=== PATIENT | male | born 1935 | race Caucasian/White ===

== ENCOUNTER → 2018-03-15 | Outpatient (CLI) | payer MEDICARE, BC ==
--- NOTE | 2018-03-16 09:06 | XR ---
Lumbar spine HISTORY: Low back pain 3 views of the lumbar spine Correlation to lumbar MRI 03/18/2013 There is multilevel spondylosis. Lumbar vertebral bodies show preserved height. Bone mineralization i s mildly reduced. Minimal anterolisthesis grade 1 L3-4 is stable. There is loss of disc height at the intervertebral levels. Atherosclerotic vascular calcifications are present. Sclerosis present in the posterior elements of t he lower lumbar spine. Lamellated calcification present in the right upper quadrant measures 2.3 cm. IMPRESSION: Degenerative disc disease, facet arthropathy. Indeterminate right upper quadrant calcific ation may represent a gallstone.
== END | disposition home or self-care (01) ==
LOC: RADXRMAIN 16:39
PROVIDERS: ATTEND Internal Medicine
DX: M51.36 Other intervertebral disc degeneration, lumbar region (principal); M46.96 Unspecified inflammatory spondylopathy, lumbar region
CPT/HCPCS: 72100

== ENCOUNTER → 2019-02-04 | Outpatient (CLI) | payer MEDICARE, BC ==
--- NOTE | 2019-02-04 21:24 | MR ---
EXAMINATION TYPE: MR lumbar spine wo con DATE OF EXAM: 02/04/2019 COMPARISON: None HISTORY: 83-year-old male Low back pain / Pain in right hip TECHNIQUE: Multiplanar, multisequence images of the lumbar spine were acquired. FINDINGS: Bladder is prominently distended up to 11.6 cm with a thickened and trabeculated appearance to the bl adder wall. Prostate gland appears prominent. Multiple sacral Tarlov cysts measuring up to 2.7 cm. Vertebral body heights are preserved. Mild heterogeneous marrow signal without suspicious bone marrow placement. Facet arthropathy throughout. Moderate multilevel degenerative disc disease with variable disc desiccation, diffuse disc bulging. M oderate disc height loss at L1-L2 and L2-L3. Overall alignment is maintained. Conus medullaris is normal. At T11-T12, there is diffuse disc bulge and facet arthropathy with mild spinal canal stenosis and mil d bilateral neuroforaminal stenosis. At T12-L1, there is diffuse disc bulge impressing on the ventral thecal sac. Facet arthropathy with m ild left neural foraminal stenosis. No significant spinal canal stenosis. At L1-L2, diffuse disc bulge with facet arthropathy. There is mild spinal canal stenosis with moderat e right greater than left neuroforaminal stenosis. At L2-L3, diffuse disc bulge with superimposed central, right paracentral disc protrusion. Changes re sult in severe focal spinal canal stenosis. The lung with facet arthropathy, there is moderate bilate ral neuroforaminal stenosis. At L3-L4, diffuse disc bulge with hypertrophic facet arthropathy. Changes result in moderate canal st enosis with mild bilateral neural foraminal stenosis. At L4-L5, there is diffuse disc bulge with ligamentum flavum thickening and facet degenerative change . Mild overall narrowing of the spinal canal with moderate left greater than right neuroforaminal gisela nosis. At L5-S1, diffuse disc bulge with facet degenerative change. Changes result in mild right neuroforami nal narrowing. No spinal canal stenosis. Partially visualized large cyst within the right kidney measuring at least 6 cm. Mildly aneurysmal upper abdominal aorta at 3.4 cm. IMPRESSION: 1. Moderate multilevel degenerative disc disease, greatest at L1-L2 and L2-L3, along with facet arthr opathy throughout. 2. Changes result in a focal severe spinal canal stenosis at L2-L3, moderate at L3-L4 and mild at T11 -T12, L1-L2, and L4-L5. 3. Variable mild and moderate neuroforaminal stenoses as outlined above. 4. 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 5. Prominent distention of the thickened urinary bladder and prostatomegaly. Correlate for possible b ladder outlet obstruction/BPH. 6. 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
--- NOTE | 2019-02-05 18:22 | MR ---
EXAMINATION TYPE: MR hip RT wo con DATE OF EXAM: 02/04/2019 COMPARISON: NONE HISTORY: 83-year-old male Low back pain / Pain in right hip TECHNIQUE: Multiplanar, multisequence images of the right hip were obtained without IV contrast. FINDINGS: There is superolateral joint space narrowing in both hips. Findings are more pronounced on the right with subchondral marrow edema and moderate to severe focal irregular cartilage loss along the weightb earing aspect. Tears of the bilateral anterior superior acetabular labrums. No sizable para labral cyst. Small hip joint effusions are present on both sides and may be within physiologic range. No evidence for hip fracture or AVN. The SI joints and sacrum remain intact. There is inhomogeneous signal of the right gluteal insertion with partial tear of the gluteus minimus and a small effusion in the subgluteus medius bursa. The rectus femoris and hamstrings origins as well as the iliopsoas insertion appear intact. Large sacral Tarlov cysts are demonstrated measuring up to 2.7 cm. Mildly heterogeneous marrow signal without suspicious bone marrow replacement. Normal course, caliber, and signal intensity of the sciatic nerves. Moderate right-sided hydrocele and small hydrocele on the left. There is also prostatomegaly at 4.9 c m wide with cystic hypertrophy of the median lobe of the prostate gland. IMPRESSION: 1. Moderate bilateral hip osteoarthrosis, right greater than left. Degenerative tears of the bilatera l acetabular trae. 2. Right-sided gluteal insertional tendinosis with partial tear of the gluteus minimus insertion. Mil d subgluteus medius bursitis. 3. Moderate right-sided hydrocele. 4. Prostatomegaly (4.9 cm wide) and hypertrophied median lobe of the prostate gland protruding into t he inferior aspect of the bladder. Correlate for symptoms of BPH.
== END | disposition home or self-care (01) ==
LOC: RADMRIMAIN 10:02
PROVIDERS: ATTEND Internal Medicine
DX: M48.061 Spinal stenosis, lumbar region without neurogenic claudication (principal); M51.36 Other intervertebral disc degeneration, lumbar region; M46.96 Unspecified inflammatory spondylopathy, lumbar region; M16.0 Bilateral primary osteoarthritis of hip; S73.192A Other sprain of left hip, initial encounter; S73.191A Other sprain of right hip, initial encounter; M77.8 Other enthesopathies, not elsewhere classified
CPT/HCPCS: 72148

== ENCOUNTER 2019-03-29 11:21 | Emergency (ER) | payer MEDICARE, BC ==
[2019-03-29 11:28] VITALS: TEMP 97.5
[2019-03-29] MEDS ORDERED: SODIUM CHLORIDE 0.9% 500 ML 500 ML IV STA (11:41)
[2019-03-29] MEDS ORDERED: MECLIZINE 25 MG TAB PO STA (11:41)
--- NOTE | 2019-03-29 11:52 | ED ---
General Adult HPI - General Chief complaint: Dizziness Stated complaint: weakness, dizziness Time Seen by Provider: 03/29/19 11:25 Source: patient, RN notes reviewed Mode of arrival: ambulatory Limitations: no limitations - History of Present Illness Initial comments: This is a 83-year-old male who presents to the emergency department complaining of dizziness for the last couple days per patient states it's worse when he bends over or turns his head. Patient states he has been so dizzy fall over. Patient states he has no other symptoms. Patient denies headache patient denies numbness weakness. Patient denies any new tinnitus or hearing loss. Patient denies any chest pain difficulty breathing shortness breath per patient denies any palpitations. Patient denies abdominal pain patient denies nausea vomiting diarrhea per patient denies any swelling to the legs or calf tenderness. Patient states she's never had anything with this before in the past. - Related Data Home Medications Medication Instructions Recorded Confirmed Aliskiren Hemifumarate [Aliskiren] 300 mg PO DAILY 03/29/19 03/29/19 Atorvastatin [Lipitor] 10 mg PO DAILY 03/29/19 03/29/19 Cholecalciferol (Vitamin D3) 2,000 unit PO DAILY 03/29/19 03/29/19 [Vitamin D3] Levothyroxine Sodium [Synthroid] 125 mcg PO DAILY 03/29/19 03/29/19 Metoprolol Succinate (ER) [Toprol 100 mg PO DAILY 03/29/19 03/29/19 Xl] Mirtazapine [Remeron] 30 mg PO HS 03/29/19 03/29/19 Valsartan/Hydrochlorothiazide 1 tab PO DAILY 03/29/19 03/29/19 [Valsartan-Hctz 320-25 mg Tab] amLODIPine BESYLATE [Norvasc] 10 mg PO DAILY 03/29/19 03/29/19 metFORMIN HCL 1,000 mg PO DAILY 03/29/19 03/29/19 sitaGLIPtin PHOSPHATE [Januvia] 100 mg PO DAILY 03/29/19 03/29/19 Previous Rx's Medication Instructions Recorded Meclizine [Antivert] 25 mg PO TID #20 tab 03/29/19 Allergies Allergy/AdvReac Type Severity Reaction Status Date / Time shellfish derived [Shellfish] Allergy Anaphylaxis Verified 03/29/19 13:03 Review of Systems ROS Statement: Those systems with pertinent positive or pertinent negative responses have been documented in the HPI. ROS Other: All systems not noted in ROS Statement are negative. Past Medical History Past Medical History: Diabetes Mellitus, Hyperlipidemia, Hypertension Additional Past Medical History / Comment(s): sleep apnea History of Any Multi-Drug Resistant Organisms: None Reported Past Surgical History: Appendectomy Past Psychological History: No Psychological Hx Reported Smoking Status: Former smoker Past Alcohol Use History: Rare Past Drug Use History: None Reported General Exam - General Exam Comments Initial Comments: GENERAL: Patient is well-developed and well-nourished. Patient is nontoxic and well- hydrated and is in mild to us distress. ENT: Neck is soft and supple. No significant lymphadenopathy is noted. Oropharynx is clear. Moist mucous membranes. Neck has full range of motion without eliciting any pain. EYES: The sclera were anicteric and conjunctiva were pink and moist. Extraocular movements were intact and pupils were equal round and reactive to light. Eyelids were unremarkable. PULMONARY: Unlabored respirations. Good breath sounds bilaterally. No audible rales rhonchi or wheezing was noted. CARDIOVASCULAR: There is a regular rate and rhythm without any murmurs gallops or rubs. ABDOMEN: Soft and nontender with normal bowel sounds. No palpable organomegaly was noted. There is no palpable pulsatile mass. SKIN: Skin is clear with no lesions or rashes and otherwise unremarkable. NEUROLOGIC: Patient is alert and oriented x3. Cranial nerves II through XII are grossly intact. Motor and sensory are also intact. Normal speech, volume and content. Symmetrical smile. Cerebellar testing finger to nose bilaterally was normal MUSCULOSKELETAL: Normal extremities with adequate strength and full range of motion. No lower extremity swelling or edema. No calf tenderness. LYMPHATICS: No significant lymphadenopathy is noted PSYCHIATRIC: Normal psychiatric evaluation. Limitations: no limitations Course Vital Signs 03/29/19 03/29/19 03/29/19 11:24 12:00 12:07 Temperature 97.5 F L Pulse Rate 74 69 Pulse Rate [ Sitting Pulse Oximetery] Pulse Rate [ Standing] Pulse Rate [ 65 Supine Pulse Oximetery] Respiratory 18 20 16 Rate Blood Pressure 139/78 141/77 Blood Pressure 150/80 [Left Arm] O2 Sat by Pulse 97 97 96 Oximetry 03/29/19 03/29/19 12:10 12:12 Temperature Pulse Rate Pulse Rate [ 71 Sitting Pulse Oximetery] Pulse Rate [ 70 Standing] Pulse Rate [ Supine Pulse Oximetery] Respiratory 20 20 Rate Blood Pressure Blood Pressure 180/81 141/77 [Left Arm] O2 Sat by Pulse 94 L 96 Oximetry Medical Decision Making - Medical Decision Making EKG shows normal sinus rhythm at 66 bpm PA interval is on an 84 QRS is 94 Q-T intervals 428 QTC is 448. Patient's EKG shows no ST segment elevation or depression or T-wave abnormalities noted. CT shows no acute abnormality. Patient's chest x-ray shows eventration of the right hemidiaphragm. Patient got Antivert in the emergency department and after he is here couple of hours he was able to ambulate and felt as though he was much improved. - Lab Data Result diagrams: 03/29/19 11:42 03/29/19 11:42 Lab Results 03/29/19 03/29/19 03/29/19 Range/Units 11:42 11:42 11:42 WBC 5.0 (3.8-10.6) k/uL RBC 4.16 L (4.30-5.90) m/uL Hgb 13.6 (13.0-17.5) gm/dL Hct 38.8 L (39.0-53.0) % MCV 93.3 (80.0-100.0) fL MCH 32.7 (25.0-35.0) pg MCHC 35.0 (31.0-37.0) g/dL RDW 12.7 (11.5-15.5) % Plt Count 195 (150-450) k/uL Neutrophils % (Manual) 64 % Lymphocytes % (Manual) 22 % Monocytes % (Manual) 11 % Eosinophils % (Manual) 3 % Neutrophils # (Manual) 3.20 (1.3-7.7) k/uL Lymphocytes # (Manual) 1.10 (1.0-4.8) k/uL Monocytes # (Manual) 0.55 (0-1.0) k/uL Eosinophils # (Manual) 0.15 (0-0.7) k/uL Nucleated RBCs 0 (0-0) /100 WBC Manual Slide Review Performed RBC Morphology Normal PT 10.2 (9.0-12.0) sec INR 0.9 (<1.2) APTT 24.6 (22.0-30.0) sec Sodium 139 (137-145) mmol/L Potassium 3.9 (3.5-5.1) mmol/L Chloride 104 (98-107) mmol/L Carbon Dioxide 25 (22-30) mmol/L Anion Gap 10 mmol/L BUN 19 (9-20) mg/dL Creatinine 1.09 (0.66-1.25) mg/dL Est GFR (CKD-EPI)AfAm 73 (>60 ml/min/1.73 sqM) Est GFR (CKD-EPI)NonAf 63 (>60 ml/min/1.73 sqM) Glucose 153 H (74-99) mg/dL Calcium 9.6 (8.4-10.2) mg/dL Magnesium 1.6 (1.6-2.3) mg/dL Total Bilirubin 1.5 H (0.2-1.3) mg/dL AST 25 (17-59) U/L ALT 23 (21-72) U/L Alkaline Phosphatase 61 (38-126) U/L Troponin I (0.000-0.034) ng/mL Total Protein 7.2 (6.3-8.2) g/dL Albumin 4.5 (3.5-5.0) g/dL 03/29/19 Range/Units 11:42 WBC (3.8-10.6) k/uL RBC (4.30-5.90) m/uL Hgb (13.0-17.5) gm/dL Hct (39.0-53.0) % MCV (80.0-100.0) fL MCH (25.0-35.0) pg MCHC (31.0-37.0) g/dL RDW (11.5-15.5) % Plt Count (150-450) k/uL Neutrophils % (Manual) % Lymphocytes % (Manual) % Monocytes % (Manual) % Eosinophils % (Manual) % Neutrophils # (Manual) (1.3-7.7) k/uL Lymphocytes # (Manual) (1.0-4.8) k/uL Monocytes # (Manual) (0-1.0) k/uL Eosinophils # (Manual) (0-0.7) k/uL Nucleated RBCs (0-0) /100 WBC Manual Slide Review RBC Morphology PT (9.0-12.0) sec INR (<1.2) APTT (22.0-30.0) sec Sodium (137-145) mmol/L Potassium (3.5-5.1) mmol/L Chloride (98-107) mmol/L Carbon Dioxide (22-30) mmol/L Anion Gap mmol/L BUN (9-20) mg/dL Creatinine (0.66-1.25) mg/dL Est GFR (CKD-EPI)AfAm (>60 ml/min/1.73 sqM) Est GFR (CKD-EPI)NonAf (>60 ml/min/1.73 sqM) Glucose (74-99) mg/dL Calcium (8.4-10.2) mg/dL Magnesium (1.6-2.3) mg/dL Total Bilirubin (0.2-1.3) mg/dL AST (17-59) U/L ALT (21-72) U/L Alkaline Phosphatase (38-126) U/L Troponin I <0.012 (0.000-0.034) ng/mL Total Protein (6.3-8.2) g/dL Albumin (3.5-5.0) g/dL Disposition Clinical Impression: Vertigo Disposition: HOME SELF-CARE Condition: Good Instructions (If sedation given, give patient instructions): Vertigo (ED) Prescriptions: Meclizine [Antivert] 25 mg PO TID #20 tab Is patient prescribed a controlled substance at d/c from ED?: No Referrals: Micky Alves MD [Primary Care Provider] - 1-2 days Time of Disposition: 13:30
[2019-03-29 12:07] LABS: Albumin 4.5 g/dL (3.5-5.0); Calcium 9.6 mg/dL (8.4-10.2); Magnesium 1.6 mg/dL (1.6-2.3); Potassium 3.9 mmol/L (3.5-5.1); Total Bilirubin 1.5 mg/dL (0.2-1.3); Total Protein 7.2 g/dL (6.3-8.2)
[2019-03-29 12:08] LABS: INR 0.9 (<1.2); Partial Thromboplastin Time 24.6 sec (22.0-30.0); Prothrombin Time 10.2 sec (9.0-12.0)
--- NOTE | 2019-03-29 12:24 | CT ---
EXAMINATION TYPE: CT brain wo con DATE OF EXAM: 03/29/2019 COMPARISON: None HISTORY: Dizziness today. CT DLP: 1137.4 mGycm Automated exposure control for dose reduction was used. Helical acquisition through the brain. FINDINGS: There are cerebral vascular calcifications present. Cortical atrophy is likely age-related. No hemorr madelyn or hydrocephalus. Periventricular white matter shows patchy low attenuation. There is a small de nse focus within the posterior occipital location inner table causing some local mass effect on the l eft occipital lobe, the lesion measures approximately 1.3 cm. Calvarium is intact. Paranasal sinuses and mastoid air cells are within normal limits. IMPRESSION: AGE-RELATED CHANGES OF ATROPHY AND PROBABLE CHRONIC SMALL VESSEL ISCHEMIA. 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 MRI COULD BE PERFORMED FOR ADDITIONAL EVALUATION.
--- NOTE | 2019-03-29 12:26 | XR ---
EXAMINATION TYPE: XR chest 2V DATE OF EXAM: 03/29/2019 COMPARISON: NONE TECHNIQUE: PA and lateral views submitted. HISTORY: Chest pain FINDINGS: Heart is enlarged and is atherosclerotic change aorta and prominence right paratracheal stripe. Lobul ated density at the right lung base. No overt failure. No pleural effusion. IMPRESSION: 1. Lobulated density along the right lung base. CT of the chest is recommended to assess for pleural- based mass versus eventration of the hemidiaphragm. 2. Cardiomegaly.
[2019-03-29 12:27] LABS: HCT 38.8 % (39.0-53.0); HGB 13.6 gm/dL (13.0-17.5); MCH 32.7 pg (25.0-35.0); MCV 93.3 fL (80.0-100.0); Mean Platelet Volume 6.9; Platelet Count 195 k/uL (150-450); RBC 4.16 m/uL (4.30-5.90); RDW 12.7 % (11.5-15.5)
[2019-03-29 12:56] LABS: Eosinophils # (M) 0.15 k/uL (0-0.7); Monocytes # (M) 0.55 k/uL (0-1.0); Neutrophils % (M) 64 %; Nucleated Red Blood Cells 0 /100 WBC (0-0); Total Cells Counted 100
[2019-03-29 13:30] VITALS: RESP 18
[2019-03-29 13:42] VITALS: BP 152/82; PULSE 67
== END 2019-03-29 13:42 | disposition home or self-care (01) ==
LOC: EC 11:21
DX: R42 Dizziness and giddiness (principal); R53.1 Weakness; E11.9 Type 2 diabetes mellitus without complications; E78.5 Hyperlipidemia, unspecified; I10 Essential (primary) hypertension; Z87.891 Personal history of nicotine dependence; Z79.890 Hormone replacement therapy; Z79.84 Long term (current) use of oral hypoglycemic drugs; Z79.899 Other long term (current) drug therapy; Z91.013 Allergy to seafood
CPT/HCPCS: 36415; 70450; 71046; 80053; 83735; 84484; 85025; 85610; 85730; 96360; 99284

== ENCOUNTER → 2019-04-14 | Outpatient (CLI) | payer MEDICARE, BC ==
--- NOTE | 2019-04-14 12:00 | CT ---
EXAMINATION TYPE: CT chest wo con DATE OF EXAM: 04/14/2019 COMPARISON: Chest x-ray 03/29/2019 HISTORY: Abnormal chest radiograph Unenhanced CT of the chest was performed with lung and mediastinal window settings submitted. The la ck of contrast limits evaluation of the vascular, mediastinal and parenchymal structures including th e upper abdomen. LUNGS: There is focal eventration right hemidiaphragm. There is no evidence for pulmonary mass. The l ungs are clear and free of infiltrate. No atelectasis. No pulmonary nodule or mass is detected. No pleural effusion. No CT evidence of interstitial lung disease. MEDIASTINUM/NAOMIE: Thoracic aorta is of normal caliber with limited evaluation given lack of contrast . The heart is not enlarged. No evidence for mediastinal mass. No lymph nodes greater than 1cm. UPPER ABDOMEN: Renal cystic changes noted. Adjacent to a large right-sided cyst there is a solid-appe aring nodule measuring 2.3 cm. Further evaluation with ultrasound is advised. Cholelithiasis. OTHER: No significant other abnormality. IMPRESSION: 1. Focal eventration right hemidiaphragm without evidence of pulmonary mass. 2. Solid nodule right kidney. Malignancy is not excluded. Recommend ultrasound correlation
== END | disposition home or self-care (01) ==
LOC: RADCTMAIN 10:57
PROVIDERS: ATTEND Internal Medicine
DX: Q79.1 Other congenital malformations of diaphragm (principal); R91.8 Other nonspecific abnormal finding of lung field
CPT/HCPCS: 71250

== ENCOUNTER → 2019-05-03 | Outpatient (CLI) | payer MEDICARE, BC ==
[2019-05-03 11:09] VITALS: BP 136/76; PULSE 74; RESP 16
--- NOTE | 2019-05-04 11:17 | P.PAINCN ---
History of Present Illness - Reason for Consult Consult date: 05/03/19 - History of Present Illness This is 83 years old male with a chronic history of severe low back pain, pain started 20 years ago he denies any initiating event, and he reported that the intensity of the pain increased over time, the pain is constant and increases with any activity or details from the low back area towards the hip area bilaterally, he denies any motor or sensory deficit he denies any fever or night sweats. He denies any change in the bowel movements or urination, he was treated in the past with pain medication OxyContin, and currently he is on [place] 7.5/325 every 6 hours when necessary, he denies any side effects of the medication and he reported the current medication is helping to some degree, but the intensity of the pain interfere with the quality of life, and interfere with his ability to do activity of daily living Past Medical History Past Medical History: Diabetes Mellitus, Hyperlipidemia, Hypertension, Sleep Apnea/CPAP/BIPAP, Thyroid Disorder Additional Past Medical History / Comment(s): USES C-PAP MACHINE, OCCASIONAL VERTIGO., LOW BACK PAIN THAT RADIATES TO HIPS- STATES DIFFICULTY WALKING DISTANCE. History of Any Multi-Drug Resistant Organisms: None Reported Past Surgical History: Appendectomy, Tonsillectomy Past Anesthesia/Blood Transfusion Reactions: No Reported Reaction Past Psychological History: No Psychological Hx Reported Smoking Status: Former smoker Past Alcohol Use History: Occasional Additional Past Alcohol Use History / Comment(s): QUIT SMOKING 20 YRS OR MORE, SMOKED 2-3 PPD., STARTED SMOKING AT 19 YRS OLD.-SMOKED 40 YEARS OR MORE. Past Drug Use History: None Reported - Past Family History Mother Family Medical History: No Reported History Medications and Allergies Home Medications Medication Instructions Recorded Confirmed Type Aliskiren Hemifumarate [Aliskiren] 300 mg PO DAILY 03/29/19 05/03/19 History Atorvastatin [Lipitor] 10 mg PO DAILY 03/29/19 05/03/19 History Cholecalciferol (Vitamin D3) 2,000 unit PO DAILY 03/29/19 05/03/19 History [Vitamin D3] Levothyroxine Sodium [Synthroid] 125 mcg PO DAILY 03/29/19 05/03/19 History Meclizine [Antivert] 25 mg PO TID #20 tab 03/29/19 05/03/19 Rx Metoprolol Succinate (ER) [Toprol 100 mg PO DAILY 03/29/19 05/03/19 History Xl] Mirtazapine [Remeron] 30 mg PO HS 03/29/19 05/03/19 History Valsartan/Hydrochlorothiazide 1 tab PO DAILY 03/29/19 05/03/19 History [Valsartan-Hctz 320-25 mg Tab] amLODIPine BESYLATE [Norvasc] 10 mg PO DAILY 03/29/19 05/03/19 History metFORMIN HCL 1,000 mg PO DAILY 03/29/19 05/03/19 History sitaGLIPtin PHOSPHATE [Januvia] 100 mg PO DAILY 03/29/19 05/03/19 History Aspirin [Adult Low Dose Aspirin EC] 81 mg PO DAILY 05/02/19 05/03/19 History HYDROcodone/APAP 7.5-325MG [[place] 1 tab PO DIRECTED PRN 05/02/19 05/03/19 History 7.5-325] Allergies Allergy/AdvReac Type Severity Reaction Status Date / Time shellfish derived [Shellfish] Allergy Anaphylaxis Verified 05/03/19 11:00 Physical Exam REVIEW OF ORGAN SYSTEMS: CONSTITUTIONAL: No fevers or chills. No recent weight loss. EYES: History of troubles with vision. No glasses. HEENT: No difficulties with hearing. No nosebleeds. No difficulty swallowing. RESPIRATORY: Past pneumonia. Denies any troubles with breathing or dyspnea on exertion. CARDIOVASCULAR: Denies any chest pain, palpitations, or recent heart attacks. GASTROINTESTINAL: Denies fatty food intolerance. Has change in bowel habits and gas bloat. GENITOURINARY: Denies any blood in urine. Has increased urinary frequency. NEUROLOGICAL: Denies any numbness or tingling along the distal extremities. No seizure disorders or headaches. MUSCULOSKELETAL: Has back pain, SKIN: Past t skin cancer. No rash. PSYCHIATRIC: Denies current depression or suicidal thoughts. ENDOCRINE: Denies current thyroid disorders. Denies any blood sugar glucose intolerance. HEME/LYMPHATIC: Denies any lumps and bumps around the neck. History of deep venous thrombosis. ALLERGY/IMMUNOLOGY: No immunoglobulin therapy. No immune deficiencies. BREAST: Denies current breast lumps, pain or nipple discharge. Physical Examinations : Constitutiona : Cooperative , not in acute distress . HEENT : nech : supple , no Lymphadenopathy , normal thyroid size . eyes : no ptosis , no icterus, no ph otophobia . ENT : normal of hearing , normal oropharynx , no Thrush . Respiratory : Chest clear to auscultations Bilaterally , no wheezing , no Rhonchi . Cardiovascula : regular rate and rhythem , S1 , S2 , no S3 , no S4. Gastrointestina : abdomen soft no tenderness , bowel sounds , no organomegally . Genitourinary : Defferred . neurologic : Cranial nerve II to XII intact , no focal neurological deffecit . psychatric : alert , oriented X 3 , appropriate affect , intact judgment and insight . Lymphatic : no Lymphadenopathy . musculoskeltal : Lumber spine moter stegnth lower extremities ,thigh and legs 5/5 Right side , 5/5 Left side deep tendon reflexes : normal Knee Jerk , normal ankle Jerk positive lumber facet Loading Test Range of motion of the lumbar spine Flexion 30 degrees, extension 10 degrees strait leg raising test = negative bilaterally Fabere test = negative bilaterally mild tenderness over the Sacroiliac joint on the R and L sides hip joints = full range of motion bilaterally, abduction and adduction movement within normal limits Minimal pain at the lateral rotation of the right hip Results Comments: MRI of the lumbar spine L2-3 ,L3 4 , L4 5 , and L5-S1 bulging disc with a facet arthropathy 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 and partial tear on the gluteus minors insertions Assessment and Plan Plan: Assessment and plan= severe low back pain secondary to lumbar spondylosis with lumbar facet arthropathy, and lumbar degenerative disc disease Patient will be a good candidate to have diagnostic medial branch block lumbar area L2-3, L3 4, L4 5, L5-S1 x2 and if it is positive then we will proceed with a radiofrequency ablation of the medial branch lumbar area Patient should continue to use his current pain [place] 7.5/325 when necessary medication and is getting prescription refills from his primary care Time with Patient: Greater than 30 PQRS Measure Charge Sheet Measure #130: Documentation of Current Meds in Medical Chart: Patient's medications documented in chart Measure #226: Tobacco Use: Screen & Cessation Intervention: Pt not a tobacco user Measure #111: Pneumonia Vaccination: Pneumococcal vaccine NOT administered or previously given Measure #47: Advance Care Plan: Advance care planning discussed & documented, pt chose/unable to give Measure #412: Opioid Treatment Agreement: No documentation of signed opioid treatment agreement Measure #408: Opioid Therapy Follow-up Evaluation: Patient had NO f/u eval minimum every 3 months during opioid therapy Measure #317: Preventitive Care & Scrn High Bld Press & F/U: Normal blood pressure, f/u not required Measure #128: Body Mass Index (BMI) Screening & Follow-up: BMI documented ABOVE normal parameters - f/u documented Measure #131: Pain Assessment & Follow-up: Pain positive & plan documented, Follow-up scheduled Measure #431: Unhealthy Alcohol Use Preventative Care & Scrn: Patient not identified as an unhealthy alcohol user PQRS Narrative: Smoking Status Former smoker Blood Pressure 136/76 Pain Intensity [Back] 6 Scale Used Numeric (1 - 10) Hx Alcohol Use (MH) Yes: occ Home Medications: Ambulatory Orders Aliskiren Hemifumarate [Aliskiren] 300 mg PO DAILY 03/29/19 Atorvastatin [Lipitor] 10 mg PO DAILY 03/29/19 Cholecalciferol (Vitamin D3) [Vitamin D3] 2,000 unit PO DAILY 03/29/19 Levothyroxine Sodium [Synthroid] 125 mcg PO DAILY 03/29/19 Meclizine [Antivert] 25 mg PO TID #20 tab 03/29/19 Metoprolol Succinate (ER) [Toprol Xl] 100 mg PO DAILY 03/29/19 Mirtazapine [Remeron] 30 mg PO HS 03/29/19 Valsartan/Hydrochlorothiazide [Valsartan-Hctz 320-25 mg Tab] 1 tab PO DAILY 03/29/19 amLODIPine BESYLATE [Norvasc] 10 mg PO DAILY 03/29/19 metFORMIN HCL 1,000 mg PO DAILY 03/29/19 sitaGLIPtin PHOSPHATE [Januvia] 100 mg PO DAILY 03/29/19 Aspirin [Adult Low Dose Aspirin EC] 81 mg PO DAILY 05/02/19 HYDROcodone/APAP 7.5-325MG [[place] 7.5-325] 1 tab PO DIRECTED PRN 05/02/19
== END | disposition home or self-care (01) ==
LOC: PNWHC3 10:27
PROVIDERS: ATTEND Specialist
DX: M51.36 Other intervertebral disc degeneration, lumbar region (principal); M47.816 Spondylosis without myelopathy or radiculopathy, lumbar region; M46.96 Unspecified inflammatory spondylopathy, lumbar region; E78.5 Hyperlipidemia, unspecified; I10 Essential (primary) hypertension; E03.9 Hypothyroidism, unspecified; Z87.891 Personal history of nicotine dependence; E11.9 Type 2 diabetes mellitus without complications; G47.33 Obstructive sleep apnea (adult) (pediatric); Z99.89 Dependence on other enabling machines and devices; Z79.82 Long term (current) use of aspirin; Z79.84 Long term (current) use of oral hypoglycemic drugs; Z79.891 Long term (current) use of opiate analgesic; Z79.899 Other long term (current) drug therapy
CPT/HCPCS: 99211

== ENCOUNTER 2019-05-09 06:35 | Day surgery (SDC) | payer MEDICARE, BC ==
[2019-05-09 07:07] VITALS: TEMP 97.8
[2019-05-09 07:14] LABS: Glucose,Whole Blood 207 mg/dL (75-99)
[2019-05-09] MEDS ORDERED: LIDOCAINE 1% 20 ML VIAL (10MG/ML) FOR IV START INTRADERMA ONE (07:16)
[2019-05-09] MEDS ORDERED: LACTATED RINGERS 1,000 ML IV ONE (07:16)
[2019-05-09] MEDS ORDERED: LACTATED RINGERS 1,000 ML IV SCH (08:48)
[2019-05-09] MEDS ORDERED: IV FLUID CONTINUATION 1,000 ML IV ONE (09:04)
--- NOTE | 2019-05-09 09:09 | P.PCN ---
Date of Procedure: 05/09/19 Procedure(s) Performed: PREOPERATIVE DIAGNOSIS : Lumbar spondylosis with Facet Arthropathy without myelopathy POSTOPERATIVE DIAGNOSIS: same PROCEDURE: First Diagnostic lumbar medial branch block with fluoroscopy at L2, L3, L4, L5 medial branches bilateral, for facet joints L3-4, L4-5, L5-S1 ANESTHESIA: Local anesthetic; no sedation Fluoroscopy was used for the procedure and images were saved in the radiology portion of the chart. Surgeon: Lata Shaw MD PROCEDURE INDICATION: Lumbar back pain without radiculopathy, not responsive to conservative management. PROCEDURE DESCRIPTION: the patient was seen and identified in the preop holding area , risks and benefits and possible complications of the procedure and alternatives were discussed with the patient, and the patient agreed to proceed with the procedure and signed the consent . IV was started , vital signs were monitored during the procedure and fluoroscopy was used to maximize the benefit and accuracy of the needle placement. Patient was taken to the procedure room and placed in prone position. The lumbar region was prepped using chlorhexidine X-2. Under strict sterile technique using AP fluoroscopy the bilateral sacral ala were identified and using ipsilateral oblique fluoroscopy ,the junction of the transverse process and the superior articulating process of the L3, L4, L5 vertebra which corresponds to the fluoroscopy image of the eye of the Tello dog for the medial branches were identified. Subsequently, after local infiltration of skin with lidocaine 1% 0.2 mL at each level , a 25-gauge 3-1/2 inch Quincke-type needle was placed at the junction of the base of the transverse process and the superior articular process at the appropriate level as well as the sacral ala, and the needle was advanced until the periosteum contacted, needle placement confirmed with AP and oblique fluoroscopy. After negative aspiration, 0.5 mL of lidocaine 4% was injected at each level and the needle subsequently removed . At the end of the procedure and the needles were removed and a bandage applied after the skin was cleaned. The patient was taken to recovery room in stable condition and monitors in the recovery room for 20-30 minutes and discharged home in stable condition after discharge criteria met and patient will follow up in clinic in 2 weeks EBL: Minimal COMPLICATION: None. 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
[2019-05-09 09:11] VITALS: RESP 17
[2019-05-09 09:33] VITALS: BP 158/90; PULSE 78
--- NOTE | 2019-05-09 12:51 | FL ---
Fluoroscopy HISTORY: Pain 5 seconds fluoroscopy time supplied to the referring clinician. 5 intraoperative C-arm images docume nt the procedure. See dictated report from anesthesia.
== END 2019-05-09 09:35 | disposition home or self-care (01) ==
LOC: ORPAIN 06:35
PROVIDERS: ATTEND Anesthesiology
DX: G89.29 Other chronic pain (principal); M47.816 Spondylosis without myelopathy or radiculopathy, lumbar region; M51.36 Other intervertebral disc degeneration, lumbar region; E11.9 Type 2 diabetes mellitus without complications; E78.5 Hyperlipidemia, unspecified; I10 Essential (primary) hypertension; G47.30 Sleep apnea, unspecified; Z99.89 Dependence on other enabling machines and devices; E07.9 Disorder of thyroid, unspecified; Z87.891 Personal history of nicotine dependence; Z79.84 Long term (current) use of oral hypoglycemic drugs; Z79.891 Long term (current) use of opiate analgesic; Z79.82 Long term (current) use of aspirin; Z79.890 Hormone replacement therapy; Z79.899 Other long term (current) drug therapy; Z91.013 Allergy to seafood

== ENCOUNTER 2019-05-24 09:38 | Day surgery (SDC) | payer MEDICARE, BC ==
[2019-05-18 15:21] VITALS: BMI 29.5
[2019-05-24 10:09] VITALS: TEMP 97.3
[2019-05-24] MEDS ORDERED: LACTATED RINGERS 1,000 ML IV ONE ×2 (10:13→11:32)
[2019-05-24 10:14] LABS: Glucose,Whole Blood 132 mg/dL (75-99)
--- NOTE | 2019-05-24 11:29 | P.PCN ---
Date of Procedure: 05/24/19 Procedure(s) Performed: PREOPERATIVE DIAGNOSIS : Lumbar spondylosis with Facet Arthropathy without myelopathy POSTOPERATIVE DIAGNOSIS: same PROCEDURE: Diagnostic lumbar medial branch block with fluoroscopy at medial branch of L2, L3, L4, and dorsal ramus of L5 bilateral ANESTHESIA: Local anesthetic; moderate sedation with Versed Surgeon: Evangelista Flynn MD PROCEDURE INDICATION: Lumbar facet arthropathy, first diagnostic block PROCEDURE DESCRIPTION: the patient was seen and identified in the preop holding area , risks and benefits and possible complications of the procedure and alternative were discussed with the patient, and the patient agreed to proceed with the procedure and signed the consent IV was started and vital signs monitored during the procedure and fluoroscopy was used to maximize the benefit and accuracy of the needle placement, and sedation was given to decrease patient anxiety, patient was taken to the procedure room and placed in prone position vital signs monitored in the back prepped. Under strict sterile technique using a right oblique fluoroscopy ,the junction of the transverse process and the superior articulating process of the L2-L3, L3- 4 , L4- 5, and L5-S1 vertebra which corresponding to the fluoroscopy image of the eye of the Tello dog on the block side for the medial branches and subsequently , after local infiltration of skin and subcutaneous tissues with lidocaine 1% one mL at each level ,then one 25-gauge Quincke-type needles was placed at the junction of the base of the transverse process and the superior articular process at the appropriate level, and the needle was advanced until the periosteum contacted, needle placement confirmed with AP oblique and lateral view and after appropriate needle placement confirmed, and after negative a spiration, 0.5 mL of Marcaine 0.5% was injected at each level and the needle subsequently removed At the end of the procedure and the needles removed and a bandage applied after the skin was cleaned the cleaning solution patient taken to recovery room in stable condition and monitors in the recovery room for 20-30 minutes and discharged home in stable condition after discharge criteria met and patient will follow up with the pain clinic in 2-4 weeks EBL: Minimal COMPLICATION: None.
[2019-05-24 11:37] VITALS: RESP 16
[2019-05-24 12:02] VITALS: BP 148/77; PULSE 62
--- NOTE | 2019-05-24 13:30 | FL ---
Fluoroscopy HISTORY: Pain 14 seconds fluoroscopy time supplied to the referring clinician. 7 intraoperative C-arm images docum ent the procedure. See dictated report from anesthesia.
== END 2019-05-24 13:24 | disposition home or self-care (01) ==
LOC: ORPAIN 09:38
PROVIDERS: ATTEND Student in an Organized Health Care Education/Training Program
DX: G89.29 Other chronic pain (principal); M47.816 Spondylosis without myelopathy or radiculopathy, lumbar region; M51.16 Intervertebral disc disorders with radiculopathy, lumbar region; I10 Essential (primary) hypertension; E78.5 Hyperlipidemia, unspecified; E11.9 Type 2 diabetes mellitus without complications; G47.30 Sleep apnea, unspecified; Z99.89 Dependence on other enabling machines and devices; E07.9 Disorder of thyroid, unspecified; Z87.891 Personal history of nicotine dependence; Z79.84 Long term (current) use of oral hypoglycemic drugs; Z79.82 Long term (current) use of aspirin; Z79.890 Hormone replacement therapy; Z79.899 Other long term (current) drug therapy; Z91.013 Allergy to seafood
CPT/HCPCS: 93005; 64493; 64494; 64495; J2250; 99152

== ENCOUNTER → 2019-05-29 | Outpatient (CLI) | payer MEDICARE, BC ==
[2019-05-29 12:51] LABS: HCT 39.1 % (39.0-53.0); HGB 13.4 gm/dL (13.0-17.5); MCH 33.3 pg (25.0-35.0); MCHC 34.2 g/dL (31.0-37.0); MCV 97.3 fL (80.0-100.0); Mean Platelet Volume 7.8; Platelet Count 243 k/uL (150-450); RBC 4.02 m/uL (4.30-5.90); RDW 14.2 % (11.5-15.5)
[2019-05-29 19:45] LABS: African American GFR (CKD) 58.9 (60.0-200.0); Albumin 4.3 g/dL (3.80-4.90); Albumin/Globulin Ratio 2.05 (1.60-3.17); BUN/Creat Ratio 15.38 Ratio (12.00-20.00); Calcium 9.4 mg/dL (8.7-10.3); Globulin 2.1 g/dL (1.6-3.3); Non-African American GFR(CKD) 50.8 (60.0-200.0); Potassium 3.8 mmol/L (3.5-5.5); Total Bilirubin 1.3 mg/dL (0.3-1.2); Total Protein 6.4 g/dL (6.2-8.2)
== END | disposition home or self-care (01) ==
LOC: LABWHC1 11:34
PROVIDERS: ATTEND Internal Medicine Interventional Cardiology
DX: I48.0 Paroxysmal atrial fibrillation (principal)
CPT/HCPCS: 36415; 80053; 84443; 85027

== ENCOUNTER → 2019-06-07 | Outpatient (CLI) | payer MEDICARE, BC ==
[2019-06-07 12:32] VITALS: BP 135/70; PULSE 76; RESP 18
--- NOTE | 2019-06-09 13:12 | P.PAINPG ---
Subjective Progress Note Date: 06/07/19 This is an 84-year-old man who we evaluated for chronic low back pain about a month ago. He has undergone bilateral lumbar medial branch blocks 2, and reports greater than 50% benefit from these blocks, lasting a few days. However, he was recently diagnosed with atrial fibrillation, following his second medial branch block and has since been put on Eliquis by his cytology laboratory manager, Dr. Liao. He returns today for follow-up. Review of systems is negative for chest pain, shortness of breath, new onset we akness, numbness/tingling, abdominal pain, malaise, fever, night sweats, chills, homicidal or suicidal ideation, or bowel or bladder incontinence. Objective - Vital Signs Vital signs: Vital Signs Temp Pulse 76 06/07/19 12:23 Resp 18 06/07/19 12:23 BP 135/70 06/07/19 12:23 Pulse Ox 95 06/07/19 12:23 - Exam GENERAL: Well appearing, in no acute distress PSYCH: Mood and affect is appropriate. Awake, alert, and oriented SKIN: Skin color, texture, turgor normal, no rashes or lesions HEENT: Normocephalic, atraumatic. EOM intact CV: No pedal edema, regular pulse RESP: Respirations are unlabored, no audible wheezing GI: Abdomen non-distended MUSCULOSKELETAL: Bilateral upper and lower extremity strength is normal and symmetric. No atrophy or tone abnormalities are noted. Lumbar spine: Straight leg raising in the sitting position is negative for radicular pain. Tenderness to palpation over the lumbar spine and paraspinous muscles bilaterally. Positive for pain with facet loading and back extension/rotation. Buttocks: No pain to palpation over the PSIS, sacroiliac joint maneuvers are negative for pain. Extremities: Peripheral joint ROM is full and pain free without obvious instability or laxity in all four extremities. No edema or skin discolorations noted. NEUR: Bilateral lower extremity coordination and muscle stretch reflexes are physiologic and symmetric. Negative clonus bilaterally. No loss of sensation is noted. Assessment and Plan Assessment: Lumbar spondylosis Lumbar degenerative disc disease Plan: Would like to proceed with lumbar radiofrequency ablation, however patient needs to have discussion with cytology laboratory manager regarding holding Eliquis. Per BRITTANY guidelines, Eliquis needs to be held for 3 days, and restarted after 24 hours. The patient will call us once he has clearance from his cytology laboratory manager to do so. We will start with the right side- medial branches of L2, L3, L4, L5. If cytology laboratory manager is unwilling to hold anticoagulation due to medical reasons, we could pursue intra-articular facet joint injections with steroid at bilateral L4-5 and L5-S1. Follow-up: For procedure, after cardiology clearance Time with Patient: Less than 30 PQRS Measure Charge Sheet Measure #130: Documentation of Current Meds in Medical Chart: Patient's medications documented in chart Measure #226: Tobacco Use: Screen & Cessation Intervention: Pt not a tobacco user Measure #111: Pneumonia Vaccination: Pneumococcal vaccine NOT administered or previously given Measure #47: Advance Care Plan: Advance care planning discussed & documented, pt chose/unable to give Measure #412: Opioid Treatment Agreement: No documentation of signed opioid treatment agreement Measure #317: Preventitive Care & Scrn High Bld Press & F/U: Normal blood pressure, f/u not required Measure #128: Body Mass Index (BMI) Screening & Follow-up: BMI documented within normal parameters Measure #131: Pain Assessment & Follow-up: Pain positive & plan documented, Follow-up scheduled Measure #431: Unhealthy Alcohol Use Preventative Care & Scrn: Patient not identified as an unhealthy alcohol user PQRS Narrative: Smoking Status Former smoker Blood Pressure 135/70 Pain Intensity [Lower Back] 6 Scale Used Numeric (1 - 10) Hx Alcohol Use (MH) Yes: occ Home Medications: Ambulatory Orders Aliskiren Hemifumarate [Aliskiren] 300 mg PO DAILY 03/29/19 Atorvastatin [Lipitor] 10 mg PO DAILY 03/29/19 Cholecalciferol (Vitamin D3) [Vitamin D3] 2,000 unit PO DAILY 03/29/19 Levothyroxine Sodium [Synthroid] 125 mcg PO DAILY 03/29/19 Metoprolol Succinate (ER) [Toprol Xl] 100 mg PO DAILY 03/29/19 Mirtazapine [Remeron] 30 mg PO HS 03/29/19 Valsartan/Hydrochlorothiazide [Valsartan-Hctz 320-25 mg Tab] 1 tab PO DAILY 03/29/19 amLODIPine BESYLATE [Norvasc] 10 mg PO DAILY 03/29/19 metFORMIN HCL 1,000 mg PO DAILY 03/29/19 sitaGLIPtin PHOSPHATE [Januvia] 100 mg PO DAILY 03/29/19 Aspirin [Adult Low Dose Aspirin EC] 81 mg PO DAILY 05/02/19 HYDROcodone/APAP 7.5-325MG [[place] 7.5-325] 1 tab PO DIRECTED PRN 05/02/19 Meclizine [Antivert] 25 mg PO TID PRN 05/18/19 Apixaban [Eliquis] 1 tab PO BID 06/07/19 Controlled Substance Measures - Controlled Substance Measures Is patient prescribed a controlled substance at discharge?: No
== END | disposition home or self-care (01) ==
LOC: PNWHC3 11:47
PROVIDERS: ATTEND Anesthesiology
DX: G89.29 Other chronic pain (principal); M51.36 Other intervertebral disc degeneration, lumbar region; M47.816 Spondylosis without myelopathy or radiculopathy, lumbar region; I48.91 Unspecified atrial fibrillation; Z87.891 Personal history of nicotine dependence; Z79.01 Long term (current) use of anticoagulants; Z79.84 Long term (current) use of oral hypoglycemic drugs; Z79.82 Long term (current) use of aspirin; Z79.899 Other long term (current) drug therapy
CPT/HCPCS: 99211

== ENCOUNTER 2019-07-17 06:20 | Day surgery (SDC) | payer MEDICARE, BC ==
[~2019-07-17 06:20] MED LIST: ALPRAZolam 0.25 MG TAB PO PRN; ALPRAZolam 0.5 MG TAB PO PRN; ASPIRIN 325 MG TAB PO STA; ATORVASTATIN 80 MG TAB PO STA; NITROGLYCERIN SL TABS 0.4 MG TAB SUBLINGUAL PRN; SODIUM CHLORIDE 0.9% 1,000 ML in EMPTY BAG 1 BAG IV ONE
[2019-07-17 07:14] LABS: Glucose,Whole Blood 151 mg/dL (75-99)
[2019-07-17 07:30] LABS: HCT 36.9 % (39.0-53.0); HGB 13.6 gm/dL (13.0-17.5); MCH 33.2 pg (25.0-35.0); MCHC 36.9 g/dL (31.0-37.0); MCV 90.1 fL (80.0-100.0); Mean Platelet Volume 6.3; Platelet Count 221 k/uL (150-450); RDW 12.8 % (11.5-15.5); WBC 6.1 k/uL (3.8-10.6)
[2019-07-17 07:34] LABS: Calcium 9.8 mg/dL (8.4-10.2); Potassium 3.4 mmol/L (3.5-5.1)
[2019-07-17] MEDS ORDERED: fentaNYL (PF) 50 MCG/ML 2 ML AMP IV ONE (07:56)
[2019-07-17 08:00] LABS: Eosinophils # (M) 0.12 k/uL (0-0.7); Lymphocytes # (M) 1.34 k/uL (1.0-4.8); Monocytes # (M) 0.73 k/uL (0-1.0); Neutrophils % (M) 64 %; Nucleated Red Blood Cells 0 /100 WBC (0-0); Total Cells Counted 100
[2019-07-17 08:01] LABS: Anisocytosis (M) Present
[2019-07-17] MEDS: LIDOCAINE 1% INJ 10MG/ML (20 ML MDV) SQ ONE ×2 (08:01→08:13)
[2019-07-17] MEDS ORDERED: MIDAZOLAM (PF) 2 MG/2 ML VIAL IV ONE (08:04)
[2019-07-17] MEDS ORDERED: VERAPAMIL SYRINGE (5 MG/10 ML) INTRAARTER ONE (08:05)
[2019-07-17] MEDS ORDERED: BIVALIRUDIN BOLUS 250 MG/50 ML IV ONE (08:28)
[2019-07-17] MEDS ORDERED: BIVALIRUDIN 250 MG in SODIUM CHLORIDE 0.9% 50 ML IV ONE (08:28)
[2019-07-17] MEDS ORDERED: CLOPIDOGREL 75 MG TAB PO ONE (08:29)
[2019-07-17] MEDS ORDERED: IOPAMIDOL-370 125ML BTL INJ ONE (08:39)
[2019-07-17] MEDS ORDERED: NITROGLYCERIN 1000MCG/10ML SYRINGE INTRAARTER ONE (08:46)
[2019-07-17] MEDS ORDERED: IOPAMIDOL-370 100ML BTL INJ ONE (08:59)
[2019-07-17] MEDS ORDERED: RX INFO: IV CONTRAST WAS GIVEN 1 EACH MISC MISCELLANE PRN (09:02)
[2019-07-17] MEDS ORDERED: MAG HYDROX/AL HYDROX/SIMETH 30 ML CUP PO PRN (09:02)
[2019-07-17] MEDS ORDERED: ATROPINE SULFATE 0.1 MG/ML 10ML SYRINGE IV PRN (09:02)
[2019-07-17] MEDS ORDERED: NITROGLYCERIN SL TABS 0.4 MG TAB SUBLINGUAL PRN (09:02)
[2019-07-17] MEDS ORDERED: ZOLPIDEM 5 MG TAB PO PRN (09:02)
[2019-07-17] MEDS ORDERED: SODIUM CHLORIDE 0.9% 1,000 ML IV SCH (09:15)
--- NOTE | 2019-07-17 09:40 | CC ---
CARDIAC CATHETERIZATION REPORT Mr. Pearson is an 84-year-old male with a history of hypertension, hyperlipidemia, diabetes mellitus, who recently was found to have paroxysmal atrial fibrillation, had a myocardial perfusion imaging that revealed an inferior wall defect. In view of that, recommendation made regarding cardiac catheterization. The procedure, risks and complication were discussed with the patient who is in full understanding and agreement. PROCEDURE: Patient was brought to the cathode washer in a fasting semi-sedated state after receiving fentanyl and Benadryl and achieving moderate conscious sedated state. Using Xylocaine anesthesia, an attempt to advance a wire into the right radial artery were unsuccessful because of very tight radial loop. At that time, the needle was removed and pressure was placed in the right radial artery. Subsequently, using Xylocaine anesthesia and Seldinger technique, a 6-[place] sheath was introduced in the left femoral artery. Selective right and left coronary angiography performed using 6-[place] 4 bend right and left Wendy catheter. Multiple views of the coronary artery including hemiaxial views were obtained. Following that, a 6-[place] tight pigtail catheter was introduced in the left ventricle and pressures were calculated. Following that, catheter removed, images were reviewed. FINDINGS: FLUOROSCOPY: There is calcification involving all the coronary arteries of mild degree. LEFT MAIN: This is a large-sized vessel, trifurcating into left circumflex, left anterior descending artery and ramus intermedius. Left main coronary artery has no evidence of high-grade stenosis. LEFT ANTERIOR DESCENDING ARTERY: This is a large-sized vessel, reaching toward the apex with a wraparound apex segment, calcified giving rise to two diagonal branches, the first one is large in caliber and very proximal. The left anterior descending artery after takeoff of the first septal visitor information assistant has a 20% to 30% plaque. There is another plaque in the mid segment. The rest of the vessel has no high-grade stenosis. RAMUS INTERMEDIUS: This is a large-sized vessel that has no evidence of high-grade stenosis. LEFT CIRCUMFLEX: This is a nondominant vessel giving rise to a proximal small obtuse marginal branch distally bifurcating into 2 obtuse marginal branch and after the takeoff of the first obtuse marginal branch, there is a 70-80 percent eccentric lesion. The rest of the vessel has mild intimal disease without any evidence of high-grade stenosis next right carotid this is a moderately-sized dominant vessel bifurcating distally PDA and posterolateral segment and branches the right coronary artery has no evidence of high-grade stenosis. LEFT VENTRICULOGRAM: Ventriculogram is not performed. HEMODYNAMICS: There was no gradient across the aortic valve the left ventricle end-diastolic pressure was 12 mmHg. CONCLUSION: 1. 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 2. Mild to moderate disease in the left anterior descending artery. RECOMMENDATION: In view of finding anatomy, I recommend proceeding with angioplasty and stenting of the left circumflex. The procedure, risks, and complication were discussed with the patient who is in full understanding and agreement. MMODL / IJN: [id number] /
--- NOTE | 2019-07-17 09:54 | PTCA ---
PERCUTANEOUSTRANS CORORONARY ANGIOGRAPHY Mr. Pearson is an 84-year-old male with known history of hypertension, hyperlipidemia, diabetes mellitus, who had evidence of atrial fibrillation and abnormal myocardial perfusion imaging. Underwent cardiac catheterization, that was abnormal. He underwent cardiac catheterization at that revealed critical stenosis involving the mid left circumflex. In view of that, recommendation was made regarding angioplasty and stenting the procedures risks and complication were discussed with the patient who is in full understanding and agreement. PROCEDURE: A 6-Croatian FL4 guiding catheter in the system after cannulating the left main, attempt to advance a 0.014 balanced medium weight J-wire into the left circumflex was unsuccessful because of the acute angulation at that point, the wire was removed and a 0.014 whisper J-wire with a Fine Cross 45 degree microcatheter were advanced. With the help of the microcatheter, the whisper J-wire was advanced and positioned distal left circumflex. Subsequently, the microcatheter was advanced and the wire was exchanged to a 0.014 balanced medium weight J-wire. Following that, the microcatheter was removed and a 2.75 x 12 mm Xience Macrina stent was advanced, deployed and post dilated at 14 atmospheres. After the last inflation, after appropriate wait, the balloon and guidewire were withdrawn back in the guiding catheter. Images were obtained and repeated. Those images reveal stable successful stenting. At that point, the guiding catheter, the balloon and the guidewire were removed. The sheath was removed. Hemostasis was obtained with deployment of an Angio-Seal. There was no immediate complication. Patient is returned to his room in stable condition. Of note, the patient received Angiomax per protocol as well as oral loading dose of Plavix. He had no significant chest discomfort or EKG changes with the inflations. RESULTS: Successful stenting of the mid left circumflex with reduction of stenosis from 80% to 0%. RECOMMENDATION: Patient will be continued on aspirin, Plavix, statin and beta ronny. His aspirin will be stopped at a later time and he will be re-initiated on the Eliquis. Those findings and recommendation were discussed with the patient and his family and they are in full understanding and agreement. Duration of the procedure is 56 minutes. MMODL / IJN: [id number] /
[2019-07-17 11:38] LABS: Glucose,Whole Blood 148 mg/dL (75-99)
[2019-07-17 15:47] VITALS: BMI 30.8
[2019-07-17 16:58] LABS: Glucose,Whole Blood 190 mg/dL (75-99)
[2019-07-17 20:43] LABS: Glucose,Whole Blood 187 mg/dL (75-99)
[2019-07-17] MEDS ORDERED: MIRTAZAPINE 15 MG TAB PO SCH (21:00)
[2019-07-18 06:00] LABS: Calcium 9.4 mg/dL (8.4-10.2); Potassium 3.4 mmol/L (3.5-5.1)
[2019-07-18 06:33] LABS: Glucose,Whole Blood 161 mg/dL (75-99)
--- NOTE | 2019-07-18 07:47 | PN ---
PROGRESS NOTE Mr. Pearson is an 84-year-old male with history of paroxysmal atrial fibrillation, hypertension, who presented after an abnormal myocardial perfusion imaging, was found to have obstructive disease involving the left circumflex, underwent stenting of that vessel he is doing well this morning ambulating without difficulty. Denying any chest pain. Continues to be in sinus mechanism. Continues to be on amlodipine 10 mg daily, aspirin 81 mg daily, atorvastatin 40 mg daily, Plavix 75 mg daily, Tradjenta, metoprolol succinate 100 mg daily, valsartan 320 mg daily. PHYSICAL EXAMINATION: Blood pressure 139/60 with a heart rate in the 60s. LUNGS: Clear. HEART: Regular rate and rhythm, S1, S2. No S3. No rub. ABDOMEN: Soft, nontender. EXTREMITIES: No edema. LAB DATA: Revealed BUN and creatinine of 17 and 1.31, potassium 3.4. EKG reveals sinus mechanism with rare PACs and PVCs and no significant acute changes. IMPRESSION: 1. Status post stenting of left circumflex. 2. Paroxysmal atrial fibrillation. 3. Hypertension. 4. Hyperlipidemia. 5. Diabetes mellitus. RECOMMENDATION: Patient's aspirin will be stopped. He will be re-initiated on Eliquis and continued to be on Plavix. He will be followed in the office in one week and depending on his progress, further recommendation will be made. MMODL / IJN: [id number] /
[2019-07-18 08:08] VITALS: BP 138/74; PULSE 70; RESP 20; TEMP 97.8
[2019-07-18] MEDS ORDERED: CLOPIDOGREL 75 MG TAB PO SCH (09:00)
[2019-07-18] MEDS ORDERED: amLODIPine 10 MG TAB PO SCH (09:00)
[2019-07-18] MEDS ORDERED: ASPIRIN 81 MG PO SCH (09:00)
[2019-07-18] MEDS ORDERED: LINAGLIPTIN 5 MG TABLET PO SCH (09:00)
[2019-07-18] MEDS ORDERED: VALSARTAN 160 MG TAB PO SCH (09:00)
[2019-07-18] MEDS ORDERED: ATORVASTATIN 40 MG TAB PO SCH (09:00)
[2019-07-18] MEDS ORDERED: METOPROLOL SUCCINATE (ER) 100 MG TAB.ER.24H PO SCH (09:00)
[2019-07-18] MEDS ORDERED: HYDROCHLOROTHIAZIDE 25 MG TAB PO SCH (09:00)
== END 2019-07-18 08:53 | disposition home or self-care (01) ==
LOC: CATHCVL 06:20 → 3SCARD 08:55 → CATHCVL 07-18 08:53
PROVIDERS: ATTEND Internal Medicine Interventional Cardiology
DX: I25.10 Atherosclerotic heart disease of native coronary artery without angina pectoris (principal); I25.84 Coronary atherosclerosis due to calcified coronary lesion; I48.0 Paroxysmal atrial fibrillation; I49.3 Ventricular premature depolarization; E78.00 Pure hypercholesterolemia, unspecified; E78.2 Mixed hyperlipidemia; I10 Essential (primary) hypertension; E11.51 Type 2 diabetes mellitus with diabetic peripheral angiopathy without gangrene; Z87.891 Personal history of nicotine dependence; Z79.01 Long term (current) use of anticoagulants; Z79.84 Long term (current) use of oral hypoglycemic drugs; Z79.890 Hormone replacement therapy; Z79.899 Other long term (current) drug therapy; Z91.013 Allergy to seafood
CPT/HCPCS: 93458; 80048 ×2; 85025; C9600; C1769 ×7; C1760; C1887 ×2; C1894; C1874; J2001; J3010; J0583; Q9967 ×2; J2250

== ENCOUNTER → 2019-10-03 | Outpatient (CLI) | payer MEDICARE, BC ==
[2019-10-03 17:07] LABS: African American GFR (CKD) 58.5 (60.0-200.0); Anion Gap 10.1 mmol/L (4.00-12.00); BUN/Creat Ratio 14.62 Ratio (12.00-20.00); Calcium 10.2 mg/dL (8.7-10.3); Carbon Dioxide 26.9 mmol/L (21.6-31.8); Chol/HDL Ratio 3.88; LDL Cholesterol,Calculated 57.4 mg/dL (0.0-131.0); Non-African American GFR(CKD) 50.5 (60.0-200.0); Potassium 4.7 mmol/L (3.5-5.5); VLDL Calculation 37.6 mg/dL (5.00-40.00)
== END | disposition home or self-care (01) ==
LOC: LABWHC1 08:04
PROVIDERS: ATTEND Nurse Practitioner Adult Health
DX: E78.2 Mixed hyperlipidemia (principal); I10 Essential (primary) hypertension; I25.10 Atherosclerotic heart disease of native coronary artery without angina pectoris
CPT/HCPCS: 36415; 80048; 80061

== ENCOUNTER → 2020-06-07 | Outpatient (CLI) | payer MEDICARE, BC ==
[2020-06-07 11:33] LABS: African American GFR (CKD) 58.1 (60.0-200.0); Albumin 4.3 g/dL (3.80-4.90); Albumin/Globulin Ratio 2.05 (1.60-3.17); Anion Gap 8.1 mmol/L (4.00-12.00); BUN/Creat Ratio 16.15 Ratio (12.00-20.00); Calcium 9.1 mg/dL (8.7-10.3); Carbon Dioxide 27.9 mmol/L (21.6-31.8); Chol/HDL Ratio 3.9; Globulin 2.1 g/dL (1.6-3.3); LDL Cholesterol,Calculated 57.2 mg/dL (0.0-131.0); Non-African American GFR(CKD) 50.1 (60.0-200.0); Potassium 3.7 mmol/L (3.5-5.5); Total Protein 6.4 g/dL (6.2-8.2); VLDL Calculation 29.8 mg/dL (5.00-40.00)
== END | disposition home or self-care (01) ==
LOC: LABWHC1 06-05 09:08
PROVIDERS: ATTEND Internal Medicine Interventional Cardiology
DX: E78.2 Mixed hyperlipidemia (principal)
CPT/HCPCS: 36415; 80053; 80061

== ENCOUNTER → 2020-07-10 | Outpatient (CLI) | payer BC, MEDICARE ==
[2020-07-10 14:26] VITALS: BP 123/77; PULSE 91; RESP 20; TEMP 98.3
--- NOTE | 2020-07-10 14:51 | P.PAINPG ---
Subjective Progress Note Date: 07/10/20 This is an 84-year-old man who we evaluated for chronic low back pain. He has undergone bilateral lumbar medial branch blocks 2 in 2019, and reported greater than 50% benefit from these blocks, lasting a few days. At the time were planning on scheduling him for radiofrequency ablation, however he developed initial fibrillation was put on blood thinner. His program or project administrator is Dr. Liao and he does approve him coming off his Eliquis for any procedures now. Patient reports that he having pain in his low back bilaterally radiating up into the high lumbar spine is occasional radiation of the buttocks. Pain is described as sharp and stabbing occasional radiation of the posterior calves. Made better with rest and is exacerbated with activity. Port steps medial branch blocks last year provided significant relief for several days greater than 50% relief. Like to pursue radiofrequency ablation as his pain is the same as it was last year Review of systems is negative for chest pain, shortness of breath, new onset weakness, numbness/tingling, abdominal pain, malaise, fever, night sweats, chills, homicidal or suicidal ideation, or bowel or bladder incontinence. Objective - Exam GENERAL: Well appearing, in no acute distress PSYCH: Mood and affect is appropriate. Awake, alert, and oriented SKIN: Skin color, texture, turgor normal, no rashes or lesions HEENT: Normocephalic, atraumatic. EOM intact CV: No pedal edema, regular pulse RESP: Respirations are unlabored, no audible wheezing GI: Abdomen non-distended MUSCULOSKELETAL: Bilateral upper and lower extremity strength is normal and symmetric. No atrophy or tone abnormalities are noted. Lumbar spine: Straight leg raising in the sitting position is negative for radicular pain. Tenderness to palpation over the lumbar spine and paraspinous muscles bilaterally. Positive for pain with facet loading and back extension/rotation. Buttocks: No pain to palpation over the PSIS, sacroiliac joint maneuvers are negative for pain. Extremities: Peripheral joint ROM is full and pain free without obvious instability or laxity in all four extremities. No edema or skin discolorations noted. NEUR: Bilateral lower extremity coordination and muscle stretch reflexes are physiologic and symmetric. Negative clonus bilaterally. No loss of sensation is noted. Assessment and Plan Assessment: Lumbar spondylosis Lumbar degenerative disc disease Plan: We'll proceed with radiofrequency ablation of the bilateral L3-4, L4-L5, L5-S1 facet joints. Eliquis will have to be held for 72 hours prior to the procedure. e Time with Patient: Less than 30 PQRS Measure Charge Sheet Measure #130: Documentation of Current Meds in Medical Chart: Patient's medications documented in chart Measure #226: Tobacco Use: Screen & Cessation Intervention: Pt not a tobacco user Measure #111: Pneumonia Vaccination: Pneumococcal vaccine NOT administered or previously given Measure #47: Advance Care Plan: Advance care planning discussed & documented, pt chose/unable to give Measure #412: Opioid Treatment Agreement: No documentation of signed opioid treatment agreement Measure #317: Preventitive Care & Scrn High Bld Press & F/U: Normal blood pressure, f/u not required Measure #128: Body Mass Index (BMI) Screening & Follow-up: BMI documented within normal parameters Measure #131: Pain Assessment & Follow-up: Pain positive & plan documented, Follow-up scheduled Measure #431: Unhealthy Alcohol Use Preventative Care & Scrn: Patient not identified as an unhealthy alcohol user PQRS Narrative: Smoking Status Former smoker Blood Pressure 135/70 Pain Intensity [Lower Back] 6 Scale Used Numeric (1 - 10) Hx Alcohol Use (MH) Yes: occ PQRS Measure Charge Sheet PQRS Narrative: Smoking Status Former smoker Pain Intensity [Lower Back] 7 Scale Used Numeric (1 - 10) Hx Alcohol Use (MH) Yes: occ Home Medications: Ambulatory Orders Aliskiren Hemifumarate [Aliskiren] 300 mg PO DAILY 03/29/19 Cholecalciferol (Vitamin D3) [Vitamin D3] 2,000 unit PO DAILY 03/29/19 Metoprolol Succinate (ER) [Toprol XL] 100 mg PO DAILY 03/29/19 Mirtazapine [Remeron] 30 mg PO HS 03/29/19 Valsartan/Hydrochlorothiazide [Valsartan-Hctz 320-25 mg Tab] 1 tab PO DAILY 03/29/19 amLODIPine BESYLATE [Norvasc] 10 mg PO DAILY 03/29/19 metFORMIN HCL 1,000 mg PO DAILY 03/29/19 sitaGLIPtin PHOSPHATE [Januvia] 100 mg PO DAILY 03/29/19 Apixaban [Eliquis] 5 mg PO BID 06/07/19 Atorvastatin [Lipitor] 40 mg PO DAILY #90 tab 07/18/19 Levothyroxine Sodium 125 mcg PO DAILY 07/02/20 Nitroglycerin Sl Tabs [Nitrostat] 0.4 mg SUBLINGUAL Q5M PRN 07/02/20 Controlled Substance Measures - Controlled Substance Measures Is patient prescribed a controlled substance at discharge?: No
== END | disposition home or self-care (01) ==
LOC: PNWHC3 13:57
PROVIDERS: ATTEND Anesthesiology
DX: M51.36 Other intervertebral disc degeneration, lumbar region (principal); M47.816 Spondylosis without myelopathy or radiculopathy, lumbar region; Z87.891 Personal history of nicotine dependence; Z79.891 Long term (current) use of opiate analgesic; Z79.899 Other long term (current) drug therapy; Z79.84 Long term (current) use of oral hypoglycemic drugs
CPT/HCPCS: 99211

== ENCOUNTER 2020-07-25 09:11 | Day surgery (SDC) | payer MEDICARE ==
[2020-07-23 15:19] VITALS: BMI 28.7
[~2020-07-25 09:11] MED LIST changes: -ALPRAZolam 0.25 MG TAB PO PRN; -ALPRAZolam 0.5 MG TAB PO PRN; -ASPIRIN 325 MG TAB PO STA; -ATORVASTATIN 80 MG TAB PO STA; +LACTATED RINGERS 1,000 ML IV SCH; -NITROGLYCERIN SL TABS 0.4 MG TAB SUBLINGUAL PRN; -SODIUM CHLORIDE 0.9% 1,000 ML in EMPTY BAG 1 BAG IV ONE
[2020-07-25 09:58] VITALS: TEMP 97
[2020-07-25 10:05] LABS: Glucose,Whole Blood 128 mg/dL (75-99)
[2020-07-25] MEDS ORDERED: MIDAZOLAM 2 MG/2 ML VIAL ONE (10:11)
[2020-07-25] MEDS ORDERED: ROPIVACAINE 5MG/ML 20ML VIAL ONE (10:11)
[2020-07-25] MEDS ORDERED: fentaNYL (PF) 50 MCG/ML 2 ML AMP ONE (10:11)
[2020-07-25] MEDS ORDERED: methylPREDNISolone ACETATE 40 MG/ML 1 ML VIAL ONE (10:11)
--- NOTE | 2020-07-25 10:51 | P.PCN ---
Date of Procedure: 07/25/20 Procedure(s) Performed: PREOPERATIVE DIAGNOSIS: 1-Lumbar Spondylosis with Facet Arthropathy without myelopathy. 2- Lumber degenerative disc disease POSTOPERATIVE DIAGNOSIS: 1- Lumbar Spondylosis with Facet Arthropathy without myelopathy. 2- Lumber degenerative disc disease PROCEDURES : Bilateral Radiofrequency thermocoagulation, L3 , L4 , and L5 medial branch, with fluoroscopic guidance (fluoroscopy images available in the radiology department) ( to denervate the facet joint at L4-5 ,and L5-S1 levels ) ANESTHESIA: Moderate sedation with intravenous versed 3 mg and fentaneyl 50 mcg, and local infiltration with Ropivacaine 0.5 % . EBL: Minimal PROCEDURE INDICATION: The patient with low back pain secondary to lumbar facet arthropathy who had more than 50% relief of her pain with previous diagnostic lumbar medial branch block with bupivacaine. PROCEDURE DESCRIPTION / TECHNIQUE: The patient was seen and identified in the preoperative area. Risks, benefits, complications, including but not limited to risk of infection ,bleeding , allergic reactions to the medications and no complete pain releife , and alternatives were discussed with the patient, the patient agreed to proceed with the procedure and signed the consent. IV was started. Vital signs remained stable throughout the procedure. Patient was taken to the OR and time out was completed. The patient was placed in the prone position on the procedure table. The lumber area was prepped and draped in the usual sterile fashion. . Vital signs were closely monitored during the procedure .IV sedation was used during the procedure to decrease patients anxiety. Using AP and then oblique fluoroscopy, the ``eye of the Tello dog corresponding to the connection between the superior and transverse articular processes of right L3, L4, and L5 were identified, marked, and localized with 1% lidocaine. Subsequently, a [id number] radiofrequency cannula with a 10- mm active tip was advanced guided by fluoroscopy to each of the``eyes of the Tello dog at right L3, L4, and L5. Each site then underwent sensory testing at 50 Hz and 0 to 1 volt and motor testing at 2.5 Hz and 0 to 3 volt with local stimulation, but no radicular symptoms down the legs. Thereafter each sites underwent radiofrequency thermocoagulation at 80 degrees celsius for 90 seconds after injecting 0.5 ml of PF Ropivacaine 1ml, then after the thermocoagulation done , 1 ml of the block solution containing Depo-Medrol 20 mg and 3 ml of Ropivacaine 0.5% was injected at the right L3 , L4 , and L5 , levels after negative aspiration of CSF and blood and with no paresthesias. Cannulas were retracted while injecting lidocaine 1% until the needle is out. The same procedure was repeated at the level of Left L3, L4, and L5 levels. At the end of the procedure, the skin was cleansed and bandages were applied. COMPLICATIONS: No acute complications. DISPOSITION / PLANS: The patient was placed in a supine position and transferred to the recovery area in a stable condition for observation and was discharged from the recovery room after meeting discharge criteria. Home discharge instructions given to the patient by the staff. The patient was reexamined prior to discharge. The patient will schedule a follow up in the clinic in 2-4 weeks. note = patient received 1 mg of Versed ,and 50 g of fentanyl then ,we found out that the IV was infiltrated and we have to replace the IV, and after the pa tient received 2 mg of Versed
[2020-07-25] MEDS ORDERED: IV FLUID CONTINUATION 1,000 ML IV ONE (10:54)
[2020-07-25 10:59] VITALS: RESP 16
[2020-07-25 11:14] VITALS: BP 125/71; PULSE 90
--- NOTE | 2020-07-25 14:05 | FL ---
EXAMINATION TYPE: FL guided pain mgmt statistic DATE OF EXAM: 07/25/2020 CLINICAL HISTORY: Bilateral lumbar radiofrequency TECHNIQUE: Fluoroscopy. COMPARISON: None. FINDINGS: Fluoroscopic guidance was provided during procedure for performing physician. A total of 28 seconds of fluoroscopic time was utilized during the procedure and 7 spot images was acquired. Ple ase see operative report for additional details. IMPRESSION: As Above.
== END 2020-07-25 11:24 ==
LOC: ORPAIN 09:11
PROVIDERS: ATTEND Specialist
DX: M47.816 Spondylosis without myelopathy or radiculopathy, lumbar region (principal); M51.36 Other intervertebral disc degeneration, lumbar region; I25.10 Atherosclerotic heart disease of native coronary artery without angina pectoris; I48.91 Unspecified atrial fibrillation; E11.9 Type 2 diabetes mellitus without complications; Z79.01 Long term (current) use of anticoagulants; Z91.013 Allergy to seafood
CPT/HCPCS: 64635; 64636; J2250; J1030; J3010; J2795; 99152; 99153

== ENCOUNTER → 2020-08-07 | Outpatient (CLI) | payer MEDICARE ==
[2020-08-07 14:29] VITALS: BP 105/69; PULSE 55; RESP 20; TEMP 97.9
--- NOTE | 2020-08-08 11:42 | P.PN ---
Subjective Progress Note Date: 08/07/20 This is a follow-up visit for this 85 years old male with a chronic history of severe low back pain, was diagnosed with lumbar spondylosis with lumbar facet arthropathy, and lumbar degenerative disc disease, status post RFA of the medial branch lumbar area bilaterally, patient reported that the procedure helped his low back pain significantly is very satisfied with the result of the treatment, he denies any motor or sensory deficits, he denies any fever or night sweats and there is no change in the bowel movement or urination and he denies any new symptoms Objective - Vital Signs Vital signs: Vital Signs Temp 97.9 F 08/07/20 14:24 Pulse 55 L 08/07/20 14:24 Resp 20 08/07/20 14:24 BP 105/69 08/07/20 14:24 Pulse Ox 98 08/07/20 14:24 - Exam Physical Examinations : -Constitutiona : Cooperative , not in acute distress . -HEENT : nech : supple , no Lymphadenopathy , normal thyroid size . : eyes : no ptosis , no icterus, no photophobia . - neurologic : Cranial nerve II to XII intact , no focal neurological deffecit . -psychatric : alert , oriented X 3 , appropriate affect , intact judgment and insight . -Lymphatic : no Lymphadenopathy . - musculoskeltal : Lumber spine moter stegnth lower extremities ,thigh and legs 5/5 Right side , 5/5 Left side Assessment and Plan Plan: Assessment and plan=1-lumbar spondylosis with lumbar facet arthropathy 2-lumbar degenerative disc disease. Plan improve significantly after RFA of the medial branch lumbar area, patient will follow up with the pain clinic when necessary - PQRS measures = - Patient's medications are documented in the chart. -Tobacco use is negative and counseling.Given. -Patient's has not received pneumococcal vaccine. -Advanced care planning discussed, patient not eligible. -Opiate contract signed. -Pain positive and follow-up visit/procedure is scheduled. -Patient's blood pressure measured [ 105/69 ] , and documented in the record ,and patient will follow up with the primary care. -Patient's weight was measured and body mass index [29,4 ] above the normal limits and counseling was done. and patient instructed to follow-up with the primary care physician. -Patient was not identified as an unhealthy alcohol user Time with Patient: Less than 30
== END | disposition home or self-care (01) ==
LOC: PNWHC3 14:02
PROVIDERS: ATTEND Specialist
DX: M51.36 Other intervertebral disc degeneration, lumbar region (principal); M47.816 Spondylosis without myelopathy or radiculopathy, lumbar region
CPT/HCPCS: 99211

== ENCOUNTER → 2020-12-16 | Outpatient (CLI) | payer MEDICARE ==
[2020-12-16 11:16] LABS: African American GFR (CKD) 48.8 (60.0-200.0); Albumin 3.9 g/dL (3.80-4.90); Albumin/Globulin Ratio 1.26 (1.60-3.17); Anion Gap 6.5 mmol/L (4.00-12.00); BUN/Creat Ratio 14.67 Ratio (12.00-20.00); Calcium 9.7 mg/dL (8.7-10.3); Carbon Dioxide 30.5 mmol/L (21.6-31.8); Chol/HDL Ratio 4.23; Globulin 3.1 g/dL (1.6-3.3); LDL Cholesterol,Calculated 69.2 mg/dL (0.0-131.0); Non-African American GFR(CKD) 42.1 (60.0-200.0); Potassium 4.1 mmol/L (3.5-5.5); Total Bilirubin 1.2 mg/dL (0.3-1.2); VLDL Calculation 27.8 mg/dL (5.00-40.00)
== END ==
LOC: LABWHC1 07:37
PROVIDERS: ATTEND Internal Medicine Interventional Cardiology
DX: E78.2 Mixed hyperlipidemia (principal)
CPT/HCPCS: 36415; 80053; 80061

== ENCOUNTER → 2021-01-14 | Outpatient (CLI) | payer MEDICARE ==
--- NOTE | 2021-01-14 14:27 | MR ---
EXAMINATION TYPE: MR iac wo/w con DATE OF EXAM: 01/14/2021 COMPARISON: HISTORY: acoustic nerve disorder, tinnitis TECHNIQUE: Multiplanar, multisequence images of the brain and brainstem is performed without and with IV contras t, utilizing 9 mL intravenous Gadavist . FINDINGS: Diffusion weighted images demonstrate no evidence of a recent infarct or other diffusion ab normality. There is no extra-axial fluid collection. There is extensive subcortical, pericallosal, periventricular hyperintensity and inversion recovery T2-weighted sequences. The ventricular system a nd cisternal spaces are normal in size and appearance. The brain volume is age appropriate, there is cortical atrophy likely age-related. Cerebellopontine angles are unremarkable, there is no abnormal soft tissue of the internal auditory c anals, no abnormal enhancement at this level. Midline structures demonstrate normal morphology. The craniocervical junction appears within normal limits. Post contrast images demonstrate no abnormal enhancement. The dural venous sinuses appear pa tent. The visualized sinuses are clear and the globes are intact. Inflammatory change present in the mastoid air cells right greater than left IMPRESSION: Age-related atrophy and chronic small vessel ischemia.
== END | disposition home or self-care (01) ==
LOC: RADMRIMAIN 09:01
PROVIDERS: ATTEND Otolaryngology
DX: I67.82 Cerebral ischemia (principal); G31.1 Senile degeneration of brain, not elsewhere classified; H93.12 Tinnitus, left ear
CPT/HCPCS: 70553; A9585

== ENCOUNTER 2021-04-17 08:21 | Observation (INO) | payer MEDICARE ==
[2021-04-17] MEDS ORDERED: ACETAMINOPHEN TAB 500 MG TAB PO STA (09:02)
--- NOTE | 2021-04-17 09:06 | ED ---
General Adult HPI - General Chief complaint: Syncope Stated complaint: syncope Time Seen by Provider: 04/17/21 08:23 Source: patient, RN notes reviewed Mode of arrival: ambulatory Limitations: no limitations - History of Present Illness Initial comments: 85-year-old male with a past medical history of atrial fibrillation, hyperlipidemia, hypertension presents to the emergency room for a chief complaint of weakness. Patient states that he has felt weak than yesterday. Patient states he couldn't get out of his chair today and had to have his pull him up and helped him into the car. [place] Patient states he started to get lightheaded and went to sit down but passed out. He does think he hit the back of his head. Patient did have a fever of 100.8 by EMS prior to arrival. - Related Data Home Medications Medication Instructions Recorded Confirmed Aliskiren Hemifumarate [Aliskiren] 300 mg PO DAILY 03/29/19 04/17/21 Metoprolol Succinate (ER) [Toprol 100 mg PO DAILY 03/29/19 04/17/21 XL] Mirtazapine [Remeron] 30 mg PO HS 03/29/19 04/17/21 Valsartan/Hydrochlorothiazide 1 tab PO DAILY 03/29/19 04/17/21 [Valsartan-Hctz 320-25 mg Tab] amLODIPine BESYLATE [Norvasc] 10 mg PO DAILY 03/29/19 04/17/21 metFORMIN HCL 1,000 mg PO DAILY 03/29/19 04/17/21 sitaGLIPtin PHOSPHATE [Januvia] 100 mg PO DAILY 03/29/19 04/17/21 Apixaban [Eliquis] 5 mg PO BID 06/07/19 04/17/21 Levothyroxine Sodium 125 mcg PO DAILY 07/02/20 04/17/21 Nitroglycerin Sl Tabs [Nitrostat] 0.4 mg SUBLINGUAL Q5M PRN 07/02/20 04/17/21 ALPRAZolam [Xanax] 0.5 mg PO Q8H PRN 04/17/21 04/17/21 Cholecalciferol [Vitamin D3 (25 50 mcg PO DAILY 04/17/21 04/17/21 Mcg = 1000 Iu)] Previous Rx's Medication Instructions Recorded Atorvastatin [Lipitor] 40 mg PO DAILY #90 tab 07/18/19 Allergies Allergy/AdvReac Type Severity Reaction Status Date / Time shellfish derived [Shellfish] Allergy Anaphylaxis Verified 04/17/21 10:08 Review of Systems ROS Statement: Those systems with pertinent positive or pertinent negative responses have been documented in the HPI. ROS Other: All systems not noted in ROS Statement are negative. Past Medical History Past Medical History: Atrial Fibrillation, Diabetes Mellitus, Hyperlipidemia, Hypertension, Sleep Apnea/CPAP/BIPAP, Thyroid Disorder Additional Past Medical History / Comment(s): OCCASIONAL VERTIGO., LOW BACK PAIN THAT RADIATES TO HIPS- STATES DIFFICULTY WALKING DISTANCE. constipation, History of Any Multi-Drug Resistant Organisms: None Reported Past Surgical History: Appendectomy, Heart Catheterization With Stent, Tonsillectomy Additional Past Surgical History / Comment(s): pain clinic procedures. one cardiac stent, rosa cataracts Past Anesthesia/Blood Transfusion Reactions: Previous Problems w/ Anesthesia Additional Past Anesthesia/Blood Transfusion Reaction / Comment(s): AFib in recovery room after pain clinic procedure Date of Last Stent Placement:: 2018 Past Psychological History: No Psychological Hx Reported Smoking Status: Former smoker Past Alcohol Use History: Occasional Past Drug Use History: None Reported - Past Family History Mother Family Medical History: No Reported History General Exam Limitations: no limitations General appearance: alert, in no apparent distress Head exam: Present: atraumatic, normocephalic, normal inspection Eye exam: Present: normal appearance, PERRL, EOMI. Absent: scleral icterus, conjunctival injection, periorbital swelling ENT exam: Present: normal exam, mucous membranes moist Neck exam: Present: normal inspection, full ROM Respiratory exam: Present: normal lung sounds bilaterally. Absent: respiratory distress, wheezes, rales, rhonchi, stridor Cardiovascular Exam: Present: regular rate, normal rhythm, normal heart sounds. Absent: systolic murmur, diastolic murmur, rubs, gallop, clicks GI/Abdominal exam: Present: soft, normal bowel sounds. Absent: distended, tenderness, guarding, rebound, rigid Neurological exam: Present: alert Course Vital Signs 04/17/21 04/17/21 04/17/21 08:26 08:42 10:30 Temperature 98.2 F Pulse Rate 91 86 84 Respiratory 16 16 16 Rate Blood Pressure 119/75 136/89 125/81 O2 Sat by Pulse 94 L 99 97 Oximetry EKG Findings - EKG Comments: EKG Findings:: Atrial fibrillation, ventricular rate 101, QRS duration 88, QTc 453 Medical Decision Making - Medical Decision Making vitals are stable. CBC unremarkable CMP does show evidence of dehydration. EKG is nonischemic. pt is in atrial fibrillation for which he has a history, currently on blood thinners. Rates currently controlled. Troponin negative.Chest x-ray shows no acute process.CT brain was obtained given fall on blood thinners which shows no acute intra-abdominal abnormality seen. CT cervical spine shows no acute fracture seen. Patient will be admitted for syncope workup. I did also workup patient's fever prior to arrival. Chest x- ray does not show pneumonia. Blood cultures pending. Patient not able to urinate and adamantly refuses straight catheterization so this is still pending. Dr. Tomlin aware. He will accept the admission, cardiology will be consulted. - Lab Data Result diagrams: 04/17/21 09:06 04/17/21 09:06 Lab Results 04/17/21 04/17/21 04/17/21 Range/Units 09:06 09:06 09:06 WBC 4.2 (3.8-10.6) k/uL RBC 4.20 L (4.30-5.90) m/uL Hgb 13.7 (13.0-17.5) gm/dL Hct 39.9 (39.0-53.0) % MCV 94.9 (80.0-100.0) fL MCH 32.6 (25.0-35.0) pg MCHC 34.4 (31.0-37.0) g/dL RDW 13.9 (11.5-15.5) % Plt Count 146 L (150-450) k/uL MPV 7.5 Neutrophils % 75 % Lymphocytes % 9 % Monocytes % 11 % Eosinophils % 0 % Basophils % 0 % Neutrophils # 3.2 (1.3-7.7) k/uL Lymphocytes # 0.4 L (1.0-4.8) k/uL Monocytes # 0.5 (0-1.0) k/uL Eosinophils # 0.0 (0-0.7) k/uL Basophils # 0.0 (0-0.2) k/uL PT 12.0 (9.0-12.0) sec INR 1.2 H (<1.2) APTT 25.1 (22.0-30.0) sec Sodium 135 L (137-145) mmol/L Potassium 3.5 (3.5-5.1) mmol/L Chloride 102 (98-107) mmol/L Carbon Dioxide 21 L (22-30) mmol/L Anion Gap 12 mmol/L BUN 21 H (9-20) mg/dL Creatinine 1.28 H (0.66-1.25) mg/dL Est GFR (CKD-EPI)AfAm 59 (>60 ml/min/1.73 sqM) Est GFR (CKD-EPI)NonAf 51 (>60 ml/min/1.73 sqM) Glucose 176 H (74-99) mg/dL Plasma Lactic Acid Iker (0.7-2.0) mmol/L Calcium 9.3 (8.4-10.2) mg/dL Total Bilirubin 2.0 H (0.2-1.3) mg/dL AST 31 (17-59) U/L ALT 20 (4-49) U/L Alkaline Phosphatase 74 (38-126) U/L Troponin I (0.000-0.034) ng/mL Total Protein 6.7 (6.3-8.2) g/dL Albumin 4.0 (3.5-5.0) g/dL Coronavirus (PCR) (Not Detectd) 04/17/21 04/17/21 04/17/21 Range/Units 09:06 09:06 09:06 WBC (3.8-10.6) k/uL RBC (4.30-5.90) m/uL Hgb (13.0-17.5) gm/dL Hct (39.0-53.0) % MCV (80.0-100.0) fL MCH (25.0-35.0) pg MCHC (31.0-37.0) g/dL RDW (11.5-15.5) % Plt Count (150-450) k/uL MPV Neutrophils % % Lymphocytes % % Monocytes % % Eosinophils % % Basophils % % Neutrophils # (1.3-7.7) k/uL Lymphocytes # (1.0-4.8) k/uL Monocytes # (0-1.0) k/uL Eosinophils # (0-0.7) k/uL Basophils # (0-0.2) k/uL PT (9.0-12.0) sec INR (<1.2) APTT (22.0-30.0) sec Sodium (137-145) mmol/L Potassium (3.5-5.1) mmol/L Chloride (98-107) mmol/L Carbon Dioxide (22-30) mmol/L Anion Gap mmol/L BUN (9-20) mg/dL Creatinine (0.66-1.25) mg/dL Est GFR (CKD-EPI)AfAm (>60 ml/min/1.73 sqM) Est GFR (CKD-EPI)NonAf (>60 ml/min/1.73 sqM) Glucose (74-99) mg/dL Plasma Lactic Acid Iker 1.5 (0.7-2.0) mmol/L Calcium (8.4-10.2) mg/dL Total Bilirubin (0.2-1.3) mg/dL AST (17-59) U/L ALT (4-49) U/L Alkaline Phosphatase (38-126) U/L Troponin I <0.012 (0.000-0.034) ng/mL Total Protein (6.3-8.2) g/dL Albumin (3.5-5.0) g/dL Coronavirus (PCR) Not Detected (Not Detectd) Disposition Clinical Impression: Syncope, Dehydration Disposition: ADMITTED IP TO THIS HOSP Is patient prescribed a controlled substance at d/c from ED?: No Referrals: Micky Alves MD [Primary Care Provider] - 1-2 days Time of Disposition: 11:59
[2021-04-17] MEDS ORDERED: SODIUM CHLORIDE 0.9% 500 ML 500 ML IV SCH (09:15)
--- NOTE | 2021-04-17 09:37 | XR ---
EXAMINATION TYPE: XR chest 2V DATE OF EXAM: 04/17/2021 COMPARISON: 03/29/2019 TECHNIQUE: PA and lateral views submitted. HISTORY: Shortness of breath FINDINGS: The lungs are clear and there is no pneumothorax, pleural effusion, or focal pneumonia. Heart size at the upper limits of normal or slightly prominent with mild atherosclerotic change aorta. Lobulatio n of the right hemidiaphragm stable from prior exam. No overt failure. Hypertrophic and degenerative changes of the spine. Arthropathy of the shoulders. IMPRESSION: 1. No acute process.
[2021-04-17 09:41] LABS: Basophils % (A) 0 %; Eosinophils % (A) 0 %; HCT 39.9 % (39.0-53.0); HGB 13.7 gm/dL (13.0-17.5); Lymphocytes # (A) 0.4 k/uL (1.0-4.8); Lymphocytes % (A) 9 %; MCH 32.6 pg (25.0-35.0); MCHC 34.4 g/dL (31.0-37.0); MCV 94.9 fL (80.0-100.0); Mean Platelet Volume 7.5; Monocytes # (A) 0.5 k/uL (0-1.0); Monocytes % (A) 11 %; Neutrophils # (A) 3.2 k/uL (1.3-7.7); Neutrophils % (A) 75 %; Platelet Count 146 k/uL (150-450); RDW 13.9 % (11.5-15.5); WBC 4.2 k/uL (3.8-10.6)
[2021-04-17 09:44] LABS: Calcium 9.3 mg/dL (8.4-10.2); INR 1.2 (<1.2); Partial Thromboplastin Time 25.1 sec (22.0-30.0); Potassium 3.5 mmol/L (3.5-5.1); Total Protein 6.7 g/dL (6.3-8.2)
--- NOTE | 2021-04-17 10:02 | CT ---
EXA EXAMINATION TYPE: CT brain cspine wo con DATE OF EXAM: 04/17/2021 COMPARISON: Brain 03/29/2019 HISTORY: 85-year-old male Syncope, fall CT DLP: 1619.7 mGycm Automated exposure control for dose reduction was used. Technique: Examination of the head was done in axial plane without intravenous contrast. Coronal and sagittal reconstructions performed. CT of the cervical spine was obtained in axial plane without intravenous injection of contrast mater ial. Coronal and sagittal reformatted images were obtained from the axial views for evaluation of f ractures, spinal alignment and canal. FINDINGS: Head: There is no evidence of acute intracranial hemorrhage, acute ischemic changes, mass effect, or extra -axial fluid collection. There is no effacement of cerebral sulci or basal subarachnoid cisterns. T here is no hydrocephalus. There is no midline shift. Holden-white matter distinction is preserved. Incidental calcified extra-axial lesion posterior left paramedian occiput measuring 1.5 cm, may be mi nimally larger from 1.3 cm, previously. Mild generalized supratentorial volume loss. More moderate bifrontal cortical volume loss. Moderate p atchy confluent white matter hypodensities in both cerebral hemispheres. Atherosclerotic calcificatio ns carotid siphons and proximal V4 segment left vertebral artery. Paranasal sinuses and mastoid air cells well pneumatized. Orbits and globes are intact. Cervical spine: No cranial cervical junction anomaly, predental space widening, or prevertebral soft tissue swelling. Degenerative change of the C1 dens articulation. Moderate to advanced disc/endplate degenerative change throughout the lumbar spine. Trace grade 1 anterolisthesis C7-T1. Remaining alignment is maintained. No acute fracture of the cervical spine. Severe hypertrophic facet and uncovertebral joint arthropathy throughout. Variable mild spinal canal narrowing secondary to disc ossified complex particularly at C5-C6. Interval moderate bilateral neural foraminal stenoses, more moderate to severe on the right at C5-C6. Ectatic upper descending thoracic aorta 3.5 cm. Sagittal and coronal reformatted images confirm above findings. COMBINED IMPRESSION: 1. Moderate bifrontal atrophy, mild generalized cerebral volume loss, and moderate confluent burden o f chronic small vessel ischemic disease. No acute intracranial abnormality seen. 2. No acute fracture of the cervical spine. Moderate to advanced multilevel spondylotic change with a degenerative trace grade 1 anterolisthesis C7-T1.
--- NOTE | 2021-04-17 13:06 | US ---
EXAMINATION TYPE: US carotid duplex BILAT DATE OF EXAM: 04/17/2021 COMPARISON: NONE CLINICAL HISTORY: syncope. Syncope EXAM MEASUREMENTS: RIGHT: Peak Systolic Velocity (PSV) cm/sec ----- Right CCA: 65.3 ----- Right ICA: 61.9 ----- Right ECA: 114.5 ICA/CCA ratio: 0.9 RIGHT: End Diastole cm/sec ----- Right CCA: 7.8 ----- Right ICA: 19.1 ----- Right ECA: 0.0 LEFT: Peak Systolic Velocity (PSV) cm/sec ----- Left CCA: 62.5 ----- Left ICA: 87.8 ----- Left ECA: 74.6 ICA/CCA ratio: 1.4 LEFT: End Diastole cm/sec ----- Left CCA: 7.6 ----- Left ICA: 27.4 ----- Left ECA: 0.0 VERTEBRALS (direction of flow): Right Vertebral: Antegrade Left Vertebral: Antegrade Mild to moderate atherosclerotic plaque bilateral common carotid artery bifurcations. No evidence of elevated velocities IMPRESSION: 1. No evidence of hemodynamically significant stenosis of the bilateral internal carotid arteries. 2. Mild to moderate atherosclerotic plaque of the bilateral common carotid artery bifurcations. Criteria for Assigning % of Stenosis / Diameter reduction (Estimation based on the indirect measurements of the internal carotid artery velocities (ICA PSV). 1. Normal (no stenosis)=ICA PSV < 125 cm/s: ratio < 2.0: ICA EDV<40 cm/s. 2. Less than 50% stenosis=ICA PSV < 125 cm/s: ratio < 2.0: ICA EDV<40 cm/s. 3. 50 to 69% stenosis=ICA PSV of 125 to 230 cm/s: ration 2.0 ? 4.0: ICA EDV 40-100 cm/s. 4. Greater than 70% stenosis to near occlusion= ICA PSV > 230 cm/s: ratio > 4.0: ICA EDV > 100 cm/s. 5. Near occlusion= ICA PSV velocities may be low or undetectable: variable ratio and ICA EDV. 6. Total occlusion=unable to detect flow.
[2021-04-17 14:52] LABS: Appearance,Urine Clear (Clear); Bilirubin,Urine Negative (Negative); Blood,Urine Negative (Negative); Color,Urine Yellow; Glucose,Urine (UA) Negative (Negative); Ketones,Urine Negative (Negative); Leukocyte Esterase,Urine Negative (Negative); Nitrite,Urine Negative (Negative); Protein,Urine Negative (Negative); Specific Gravity,Urine 1.012 (1.001-1.035); Urobilinogen,Urine <2.0 mg/dL (<2.0)
[2021-04-17 17:08] LABS: Glucose,Whole Blood 97 mg/dL (75-99)
[2021-04-17] MEDS ORDERED: LEVOFLOXACIN 750MG-D5W PMX 750 MG in DEXTROSE/WATER 1 150ML.BAG IVPB STA (17:27)
[2021-04-17] MEDS ORDERED: LORazepam 2 MG/ML INJ IV PRN (17:27)
[2021-04-17] MEDS ORDERED: NITROGLYCERIN SL TABS 0.4 MG TAB SUBLINGUAL PRN (17:59)
[2021-04-17] MEDS ORDERED: METOPROLOL SUCCINATE (ER) 100 MG TAB.ER.24H PO STA (19:03)
[2021-04-17 19:39] LABS: Glucose,Whole Blood 225 mg/dL (75-99)
[2021-04-17] MEDS ORDERED: ACETAMINOPHEN TAB 500 MG TAB PO PRN (19:44)
[2021-04-17] MEDS: APIXABAN 5 MG TAB PO SCH (20:26)
[2021-04-17] MEDS: TAMSULOSIN 0.4 MG CAP.ER.24H PO SCH (20:26)
[2021-04-17] MEDS: MIRTAZAPINE 15 MG TAB PO SCH (20:26)
[2021-04-17] MEDS: SODIUM CHLORIDE 0.9% 1,000 ML IV SCH (20:41)
[2021-04-18] MEDS ORDERED: VANCOMYCIN IV PER PHARMACY 1 EACH MISC MISCELLANE PRN (05:08)
[2021-04-18] MEDS ORDERED: VANCOMYCIN 1,500 MG in SODIUM CHLORIDE 0.9% 250 ML IVPB ONE (05:15)
[2021-04-18] MEDS: LEVOTHYROXINE 125 MCG TAB PO SCH (05:38)
[2021-04-18 07:30] LABS: Glucose,Whole Blood 143 mg/dL (75-99)
[2021-04-18] MEDS ORDERED: hydroCHLOROthiazide 25 MG TAB PO SCH (09:00)
[2021-04-18] MEDS ORDERED: metFORMIN 500 MG TAB PO SCH (09:00)
[2021-04-18] MEDS: CHOLECALCIFEROL 25 MCG (1000 IU) TABLET PO SCH (09:19)
[2021-04-18] MEDS: APIXABAN 5 MG TAB PO SCH ×2 (09:19→21:40)
[2021-04-18] MEDS: ATORVASTATIN 40 MG TAB PO SCH (09:19)
[2021-04-18] MEDS: ALISKIREN HEMIFUMARATE 300 MG PO SCH (09:19)
[2021-04-18] MEDS: METOPROLOL SUCCINATE (ER) 100 MG TAB.ER.24H PO SCH (09:20)
[2021-04-18] MEDS: LINAGLIPTIN 5 MG TABLET PO SCH (09:21)
[2021-04-18 10:07] LABS: Basophils # (A) 0.01 X 10*3/uL (0.00-0.10); Basophils % (A) 0.3 %; Eosinophils # (A) 0 X 10*3/uL (0.04-0.35); Eosinophils % (A) 0 %; HCT 38.8 % (39.6-50.0); HGB 13.4 g/dL (13.0-17.0); Lymphocytes # (A) 0.58 X 10*3/uL (0.90-5.00); Lymphocytes % (A) 14.8 %; MCH 32.5 pg (27.0-32.0); MCHC 34.5 g/dL (32.0-37.0); MCV 94.2 fL (80.0-97.0); Mean Platelet Volume 10.5 fL (9.5-12.2); Monocytes # (A) 0.85 X 10*3/uL (0.20-1.00); Monocytes % (A) 21.7 %; Neutrophils # (A) 2.45 X 10*3/uL (1.80-7.70); Neutrophils % (A) 62.7 %; Platelet Count 127 X 10*3/uL (140-440); RBC 4.12 X 10*6/uL (4.40-5.60); WBC 3.91 X 10*3/uL (4.50-10.00)
--- NOTE | 2021-04-18 10:49 | P.HPIM ---
History of Present Illness H&P Date: 04/17/21 Ervin Pearson is an 85 year old male who presented to [facility] emergency room with a chief complaint of syncope, patient states that he was golfing this morning when he started having some severe chills, and then he had an episode of loss of consciousness, at that time he had an elevated temperature of 102, he was brought into emergency room. He was evaluated in the emergency room vital examination on presentation revealed a temperature of 98.2 pulse 91 respirations 16 blood pressure 119/75 pulse ox 94% on room air Laboratory data revealed a white blood count of 4.2 hemoglobin 13.7 platelet count 146 sodium 135 potassium 3.5 BUN 21 creatinine 1.28 glucose 176 total bilirubin 2.0 normal AST a LT and alkaline phosphatase normal troponin COVID-19 PCR testing was negative. Testing in the emergency room revealed , computed tomography scan of the brain revealed moderate bifrontal atrophy with mild generalized cerebral volume loss and chronic small vessel ischemic disease no acute intracranial abnormality computed tomography scan of the cervical spine revealed no acute fracture. Chest x-ray did not reveal any evidence of acute abnormality. Patient was admitted to medical floor for further evaluation and treatment, echocardiogram and carotid Doppler were ordered cardiology consultation was requested Past medical history is significant for history of hypertension, history of hypothyroidism, history of hyperlipidemia, history of [id number]-ktysxgrxe diabetes mellitus, history of obstructive sleep apnea, and history of paroxysmal atrial fibrillation maintained on eliquis. On review of systems patient is alert and oriented 3 in no apparent distress at the time of my exam he was having severe uncontrollable shaking chills, otherwise he denies any complaints, there is no fever no headache or dizziness no chest pain no shortness of breath no palpitation no cough no nausea or vomiting no abdominal pain no diarrhea no blood in the stools no burning with urination no frequency or urgency and no hematuria, there is no weakness or numbness in any of the extremities no change in vision speech or gait. Past Medical History Past Medical History: Atrial Fibrillation, Diabetes Mellitus, Hyperlipidemia, Hypertension, Sleep Apnea/CPAP/BIPAP, Thyroid Disorder Additional Past Medical History / Comment(s): OCCASIONAL VERTIGO., LOW BACK PAIN THAT RADIATES TO HIPS- STATES DIFFICULTY WALKING DISTANCE. constipation, History of Any Multi-Drug Resistant Organisms: None Reported Past Surgical History: Appendectomy, Heart Catheterization With Stent, Ton sillectomy Additional Past Surgical History / Comment(s): pain clinic procedures. one cardiac stent, rosa cataracts Past Anesthesia/Blood Transfusion Reactions: Previous Problems w/ Anesthesia Additional Past Anesthesia/Blood Transfusion Reaction / Comment(s): AFib in recovery room after pain clinic procedure Date of Last Stent Placement:: 2018 Past Psychological History: No Psychological Hx Reported Smoking Status: Former smoker Past Alcohol Use History: Occasional Past Drug Use History: None Reported - Past Family History Mother Family Medical History: No Reported History Medications and Allergies Home Medications Medication Instructions Recorded Confirmed Type Aliskiren Hemifumarate [Aliskiren] 300 mg PO DAILY 03/29/19 04/17/21 History Metoprolol Succinate (ER) [Toprol 100 mg PO DAILY 03/29/19 04/17/21 History XL] Mirtazapine [Remeron] 30 mg PO HS 03/29/19 04/17/21 History Valsartan/Hydrochlorothiazide 1 tab PO DAILY 03/29/19 04/17/21 History [Valsartan-Hctz 320-25 mg Tab] amLODIPine BESYLATE [Norvasc] 10 mg PO DAILY 03/29/19 04/17/21 History metFORMIN HCL 1,000 mg PO DAILY 03/29/19 04/17/21 History sitaGLIPtin PHOSPHATE [Januvia] 100 mg PO DAILY 03/29/19 04/17/21 History Apixaban [Eliquis] 5 mg PO BID 06/07/19 04/17/21 History Atorvastatin [Lipitor] 40 mg PO DAILY #90 tab 07/18/19 04/17/21 Rx Levothyroxine Sodium 125 mcg PO DAILY 07/02/20 04/17/21 History Nitroglycerin Sl Tabs [Nitrostat] 0.4 mg SUBLINGUAL Q5M PRN 07/02/20 04/17/21 History ALPRAZolam [Xanax] 0.5 mg PO Q8H PRN 04/17/21 04/17/21 History Cholecalciferol [Vitamin D3 (25 50 mcg PO DAILY 04/17/21 04/17/21 History Mcg = 1000 Iu)] Allergies Allergy/AdvReac Type Severity Reaction Status Date / Time shellfish derived [Shellfish] Allergy Anaphylaxis Verified 04/17/21 10:08 Physical Exam Vitals: Vital Signs Temp Pulse Resp BP Pulse Ox 04/17/21 12:14 98.1 F 92 16 119/72 97 04/17/21 10:30 84 16 125/81 97 04/17/21 08:42 86 16 136/89 99 04/17/21 08:26 98.2 F 91 16 119/75 94 L Intake and Output 04/16/21 04/17/21 04/17/21 22:59 06:59 14:59 Other: Weight 90.718 kg In general patient is alert and oriented x 3 in no distress HEENT head normocephalic and atraumatic Neck is supple no JVD no goiter no lymphadenopathy no carotid bruit Chest examination is clear to auscultation no crackles no wheezing Cardiac exam reveals regular heart sounds S1 and S2 no gallops no murmurs Abdomen is soft nontender no organomegaly with normal bowel sounds Extremity exam reveals no edema no cyanosis or clubbing Neurological examination reveals no gross focal deficits Results CBC & Chem 7: 04/17/21 09:06 04/17/21 09:06 Labs: Abnormal Lab Results - Last 24 Hours (Table) 04/17/21 04/17/21 04/17/21 Range/Units 09:06 09:06 09:06 RBC 4.20 L (4.30-5.90) m/uL Plt Count 146 L (150-450) k/uL Lymphocytes # 0.4 L (1.0-4.8) k/uL INR 1.2 H (<1.2) Sodium 135 L (137-145) mmol/L Carbon Dioxide 21 L (22-30) mmol/L BUN 21 H (9-20) mg/dL Creatinine 1.28 H (0.66-1.25) mg/dL Glucose 176 H (74-99) mg/dL Total Bilirubin 2.0 H (0.2-1.3) mg/dL Assessment and Plan Plan: 1. Syncopal episode 2. Febrile illness, prior to admission with episodes of severe shaking chills 3. Underlying history of hypertension 4. Underlying history of hypothyroidism 5. Underlying history of hyperlipidemia 6. Underlying history of [id number]-yqwzscpwt diabetes mellitus 7. Underlying history of paroxysmal atrial fibrillation At this time blood culture were taken Will start on IV antibiotic empirically Echocardiogram and carotid Doppler were ordered Home medications reviewed and reordered
--- NOTE | 2021-04-18 11:17 | P.PN ---
Subjective Progress Note Date: 04/18/21 Ervin Pearson is an 85 year old male who presented to [facility] emergency room with a chief complaint of syncope, patient states that he was golfing this morning when he started having some severe chills, and then he had an episode of loss of consciousness, at that time he had an elevated temperature of 102, he was brought into emergency room. He was evaluated in the emergency room vital examination on presentation revealed a temperature of 98.2 pulse 91 respirations 16 blood pressure 119/75 pulse ox 94% on room air Laboratory data revealed a white blood count of 4.2 hemoglobin 13.7 platelet count 146 sodium 135 potassium 3.5 BUN 21 creatinine 1.28 glucose 176 total bilirubin 2.0 normal AST a LT and alkaline phosphatase normal troponin COVID-19 PCR testing was negative. Testing in the emergency room revealed , computed tomography scan of the brain revealed moderate bifrontal atrophy with mild generalized cerebral volume loss and chronic small vessel ischemic disease no acute intracranial abnormality computed tomography scan of the cervical spine revealed no acute fracture. Chest x-ray did not reveal any evidence of acute abnormality. Patient was admitted to medical floor for further evaluation and treatment, echocardiogram and carotid Doppler were ordered cardiology consultation was requested Past medical history is significant for history of hypertension, history of hypothyroidism, history of hyperlipidemia, history of imo-krukosq-yvihgzlse diabetes mellitus, history of obstructive sleep apnea, and history of paroxysmal atrial fibrillation maintained on eliquis. On review of systems patient is alert and oriented 3 in no apparent distress at the time of my exam he was having severe uncontrollable shaking chills, otherwise he denies any complaints, there is no fever no headache or dizziness no chest pain no shortness of breath no palpitation no cough no nausea or vomiting no abdominal pain no diarrhea no blood in the stools no burning with urination no frequency or urgency and no hematuria, there is no weakness or numbness in any of the extremities no change in vision speech or gait. On 04/18/2021 patient is alert and oriented 3. Patient maintained on vancomycin. Carotid Doppler was completed and negative. 2-D echo ordered. Patient having positive blood cultures gram-positive cocci in clusters. Infectious disease, cardiology and urology services are consulted. UA negative. Chest x-ray negative. Patient denies any chest pain or shortness breath. Patient denies nausea vomiting or diarrhea. Patient denies any urinary burning or frequency Objective - Vital Signs Vital signs: Vital Signs Temp 48565 F H 04/18/21 10:57 Pulse 105 H 04/18/21 10:57 Resp 24 04/18/21 10:57 BP 119/73 04/18/21 10:57 Pulse Ox 96 04/18/21 10:57 Intake & Output 04/17/21 04/18/21 04/18/21 18:59 06:59 18:59 Output Total 4800 Balance -4800 Weight 90.718 kg Output: Urine 4800 Other: Voiding Method Toilet Toilet Indwelling Catheter # Voids 1 - Exam In general patient is alert and oriented x 3 in no distress HEENT head normocephalic and atraumatic Neck is supple no JVD no goiter no lymphadenopathy no carotid bruit Chest examination is clear to auscultation no crackles no wheezing Cardiac exam reveals regular heart sounds S1 and S2 no gallops no murmurs Abdomen is soft nontender no organomegaly with normal bowel sounds Extremity exam reveals no edema no cyanosis or clubbing Neurological examination reveals no gross focal deficits - Labs CBC & Chem 7: 04/18/21 05:49 04/17/21 09:06 Labs: Abnormal Lab Results - Last 24 Hours (Table) 04/17/21 04/18/21 04/18/21 Range/Units 19:37 05:49 07:29 WBC 3.91 L (4.50-10.00) X 10*3/uL RBC 4.12 L (4.40-5.60) X 10*6/uL Hct 38.8 L (39.6-50.0) % MCH 32.5 H (27.0-32.0) pg Plt Count 127 L (140-440) X 10*3/uL Lymphocytes # 0.58 L (0.90-5.00) X 10*3/uL Eosinophils # 0 L (0.04-0.35) X 10*3/uL POC Glucose (mg/dL) 225 H 143 H (75-99) mg/dL Microbiology - Last 24 Hours (Table) 04/17/21 09:06 Blood Culture Gram Stain - Preliminary Blood 04/17/21 09:06 Blood Culture - Final Blood 04/17/21 09:06 Blood Culture Gram Stain - Preliminary Blood 04/17/21 09:06 Blood Culture - Final Blood Assessment and Plan Plan: 1. Syncopal episode 2. Positive blood culture. Infectious disease consulted. Patient remains on vancomycin. 3. Underlying history of hypertension 4. Underlying history of hypothyroidism 5. Underlying history of hyperlipidemia 6. Underlying history of skb-wrvfyhh-wdlpapodv diabetes mellitus 7. Underlying history of paroxysmal atrial fibrillation Will start on IV antibiotic empirically Echocardiogram and carotid Doppler were ordered Home medications reviewed and reordered
[2021-04-18 11:29] LABS: Glucose,Whole Blood 159 mg/dL (75-99)
[2021-04-18 11:32] LABS: African American GFR (CKD) 58.1 (60.0-200.0); Albumin 4.2 g/dL (3.80-4.90); Albumin/Globulin Ratio 1.83 (1.60-3.17); Anion Gap 12.7 mmol/L (4.00-12.00); BUN/Creat Ratio 17.69 Ratio (12.00-20.00); Calcium 8.9 mg/dL (8.7-10.3); Carbon Dioxide 23.3 mmol/L (21.6-31.8); Chol/HDL Ratio 5.48; Globulin 2.3 g/dL (1.6-3.3); LDL Cholesterol,Calculated 64.4 mg/dL (0.0-131.0); Non-African American GFR(CKD) 50.1 (60.0-200.0); Potassium 3.5 mmol/L (3.5-5.5); Total Bilirubin 2.1 mg/dL (0.3-1.2); Total Protein 6.5 g/dL (6.2-8.2); VLDL Calculation 29.6 mg/dL (5.00-40.00)
[2021-04-18] MEDS: DILTIAZEM ORAL 30 MG TAB PO SCH ×2 (11:56→21:40)
[2021-04-18] MEDS: INSULIN ASPART (NovoLOG) 100 UNIT/ML VIAL SQ SCH ×3 (12:32→21:40)
--- NOTE | 2021-04-18 12:45 | P.CRDCN ---
History of Present Illness History of present illness: HISTORY OF PRESENTING ILLNESS This is a pleasant 85-year-old male past medical history significant for coronary artery disease status post stent to the mid left circumflex in 06/2019, hypertension, type 2 diabetes, dyslipidemia, chronic persistent atrial fibrillation on Eliquis, peripheral artery disease, chronic kidney disease. He follows in the office with Dr. Rudd. We have been asked to see in consultation for syncope. Patient is seen and examined at bedside, he appears fatigued. He states he was at the [employer] [facility] yesterday helping out. He endorses not eating that day or drinking water. He did get lightheaded. He states he tried to sit on a bench but he said he missed it and hit the ground. Someone called EMS and brought him to the emergency department. He states that he has been feeling that he has had a fever at home since Wednesday. He endorses chills. Denies chest pain, shortness of breath, palpitations, abdominal pain, nausea, vomiting, or diarrhea, or dysuria. He denies symptoms of orthopnea or PND. Denies cough. DIAGNOSTICS EKG reveals atrial fibrillation, heart rate in 101, no significant ST-T wave abnormalities. Telemetry tracings indicate atrial fibrillation HR 110-120 Chest xray no acute cardiopulmonary process. mild atherosclerotic change aorta, but no motion of the right hemidiaphragm stable from prior exam, hypertrophic an d degenerative changes the spine, arthropathy of the shoulders. CT head and spine- moderate bifrontal atrophy, mild generalized cerebral volume loss and moderate confluent burden of the chronic small vessel ischemic disease. No acute intracranial abnormality. No fracture and cervical spine. Mitral advanced multilevel spondylitic change with degenerative grade 1 anterolisthesis C7-T1 Carotid Dopplerno evidence hemodynamically separate stenosis of the bilateral internal carotid arteries. Mild to moderate atherosclerotic plaque of the bilateral common carotid artery bifurcations. Most recent echocardiogram 06/2019 EF of 55%, mild mitral regurgitation, mild tricuspid regurgitation. Holter Monitor results from 10/2020- revealed Atrial fibrillation Laboratory reviewed, troponin negative 3, sodium 135, potassium 3.5, BUNs 21, serum creatinine 1.28, COVID-19 negative, diffusely 4.2, hemoglobin 13.7, platelets 146 Current home daily cardiac medications include valsartan/hctz 320-25mg daily, metoprolol succinate 100 mg daily, amlodipine 10 mg daily, atorvastatin 40 mg daily, Eliquis 5 mg twice a day Cardiac catherization history includes 06/2019 revealed significant stenosis in the mid left circumflex and a stent was placed, mild to moderate disease in the LAD. REVIEW OF SYSTEMS At the time of my exam: CONSTITUTIONAL: + fever +chills. CARDIOVASCULAR: Denies chest pain, shortness of breath, orthopnea, PND or palpitations. RESPIRATORY: Denies cough. GASTROINTESTINAL: Denies abdominal pain, diarrhea, constipation, nausea or vomiting. MUSCULOSKELETAL: Denies myalgias. NEUROLOGIC: +lightheaded Denies numbness, tingling, headacbe or weakness. ENDOCRINE: Denies fatigue, weight change, polydipsia or polyurina. GENITOURINARY: Denies burning, hematuria or urgency with micturation. HEMATOLOGIC: Denies history of anemia or bleeding. PHYSICAL EXAMINATION Blood pressure 136/67 heart rate 114 Febrile and maintaining oxygen saturation 94% on room air. Tmax overnight 101.4 CONSTITUTIONAL: Appears slightly diaphoretic HEENT: Head is normocephalic. Pupils are equal, round. Sclerae anicteric. Mucous membranes of the mouth are moist. No JVD. No carotid bruit. CHEST EXAMINATION: Lungs are clear to auscultation. No chest wall tenderness is noted on palpation or with deep breathing. HEART EXAMINATION: Irregular rate and rhythm. S1, S2 heard. Systolic murmur noted ABDOMEN: Soft, nontender. Positive bowel sounds. EXTREMITIES: 2+ peripheral pulses, no lower extremity edema and no calf tenderness. NEUROLOGIC EXAMINATION: Patient is awake, alert and oriented x3. ASSESSMENT Fall, possible syncope Fevers and Chills Coronary artery disease status post stent to the mid left circumflex in 06/2019 Hypertension Type 2 diabetes Dyslipidemia Chronic persistent atrial fibrillation on Eliquis Peripheral artery disease. PLAN 2D echocardiogram ordered, will follow up on results Stop hydrochlorothiazide Start Cardizem 30mg BID Continue amlodipine, Eliquis, statin, metoprolol succinate 100 mg daily, valsartan Infectious disease is following- patient is currently on IV vancomycin Continue cardiac telemetry Further recommendations based on clinical course Nurse Practitioner note has been reviewed, I agree with a documented findings and plan of care. Patient was seen and examined. Past Medical History Past Medical History: Atrial Fibrillation, Diabetes Mellitus, Hyperlipidemia, Hypertension, Sleep Apnea/CPAP/BIPAP, Thyroid Disorder Additional Past Medical History / Comment(s): OCCASIONAL VERTIGO., LOW BACK PAIN THAT RADIATES TO HIPS- STATES DIFFICULTY WALKING DISTANCE. constipation, History of Any Multi-Drug Resistant Organisms: None Reported Past Surgical History: Appendectomy, Heart Catheterization With Stent, Tonsillectomy Additional Past Surgical History / Comment(s): pain clinic procedures. one cardiac stent, rosa cataracts Past Anesthesia/Blood Transfusion Reactions: Previous Problems w/ Anesthesia Additional Past Anesthesia/Blood Transfusion Reaction / Comment(s): AFib in recovery room after pain clinic procedure Date of Last Stent Placement:: 2018 Past Psychological History: No Psychological Hx Reported Smoking Status: Former smoker Past Alcohol Use History: Occasional Past Drug Use History: None Reported - Past Family History Mother Family Medical History: No Reported History Medications and Allergies Home Medications Medication Instructions Recorded Confirmed Type Aliskiren Hemifumarate [Aliskiren] 300 mg PO DAILY 03/29/19 04/17/21 History Metoprolol Succinate (ER) [Toprol 100 mg PO DAILY 03/29/19 04/17/21 History XL] Mirtazapine [Remeron] 30 mg PO HS 03/29/19 04/17/21 History Valsartan/Hydrochlorothiazide 1 tab PO DAILY 03/29/19 04/17/21 History [Valsartan-Hctz 320-25 mg Tab] amLODIPine BESYLATE [Norvasc] 10 mg PO DAILY 03/29/19 04/17/21 History metFORMIN HCL 1,000 mg PO DAILY 03/29/19 04/17/21 History sitaGLIPtin PHOSPHATE [Januvia] 100 mg PO DAILY 03/29/19 04/17/21 History Apixaban [Eliquis] 5 mg PO BID 06/07/19 04/17/21 History Atorvastatin [Lipitor] 40 mg PO DAILY #90 tab 07/18/19 04/17/21 Rx Levothyroxine Sodium 125 mcg PO DAILY 07/02/20 04/17/21 History Nitroglycerin Sl Tabs [Nitrostat] 0.4 mg SUBLINGUAL Q5M PRN 07/02/20 04/17/21 History ALPRAZolam [Xanax] 0.5 mg PO Q8H PRN 04/17/21 04/17/21 History Cholecalciferol [Vitamin D3 (25 50 mcg PO DAILY 04/17/21 04/17/21 History Mcg = 1000 Iu)] Allergies Allergy/AdvReac Type Severity Reaction Status Date / Time shellfish derived [Shellfish] Allergy Anaphylaxis Verified 04/17/21 10:08 Physical Exam Vitals: Vital Signs Temp Pulse Resp BP Pulse Ox 04/17/21 14:17 81 18 120/75 99 04/17/21 12:14 98.1 F 92 16 119/72 97 04/17/21 10:30 84 16 125/81 97 04/17/21 08:42 86 16 136/89 99 04/17/21 08:26 98.2 F 91 16 119/75 94 L Intake and Output 04/16/21 04/17/21 04/17/21 22:59 06:59 14:59 Other: Weight 90.718 kg Results 04/18/21 05:49 04/18/21 05:49 Cardiac Enzymes 04/17/21 04/17/21 04/17/21 Range/Units 09:06 09:06 12:47 AST 31 (17-59) U/L Troponin I <0.012 <0.012 (0.000-0.034) ng/mL Coagulation 04/17/21 Range/Units 09:06 PT 12.0 (9.0-12.0) sec APTT 25.1 (22.0-30.0) sec CBC 04/17/21 Range/Units 09:06 WBC 4.2 (3.8-10.6) k/uL RBC 4.20 L (4.30-5.90) m/uL Hgb 13.7 (13.0-17.5) gm/dL Hct 39.9 (39.0-53.0) % Plt Count 146 L (150-450) k/uL Comprehensive Metabolic Panel 04/17/21 Range/Units 09:06 Sodium 135 L (137-145) mmol/L Potassium 3.5 (3.5-5.1) mmol/L Chloride 102 (98-107) mmol/L Carbon Dioxide 21 L (22-30) mmol/L BUN 21 H (9-20) mg/dL Creatinine 1.28 H (0.66-1.25) mg/dL Glucose 176 H (74-99) mg/dL Calcium 9.3 (8.4-10.2) mg/dL AST 31 (17-59) U/L ALT 20 (4-49) U/L Alkaline Phosphatase 74 (38-126) U/L Total Protein 6.7 (6.3-8.2) g/dL Albumin 4.0 (3.5-5.0) g/dL Intake and Output 04/16/21 04/17/21 04/17/21 22:59 06:59 14:59 Other: Weight 90.718 kg Patient Weight 04/18/21 06:59 Weight 90.718 kg 04/17/21 09:06 04/17/21 09:06
--- NOTE | 2021-04-18 13:00 | ECHOF ---
Referral Reason:syncope MEASUREMENTS -------- HEIGHT: 162.6 cm WEIGHT: 90.7 kg BP: IVSd: 1.2 cm (0.6 - 1.1) LVIDd: 4.4 cm (3.9 - 5.3) LVPWd: 1.2 cm (0.6 - 1.1) IVSs: 1.4 cm LVIDs: 3.1 cm LVPWs: 2.0 cm MV EXCURSION: 16.399 mm (> 18.000) MV EF SLOPE: 74 mm/s (70 - 150) EPSS: 1.3 cm MV E Gian: 0.92 m/s MV DecT: 173 ms MV A Gian: 0.45 m/s MV E/A Ratio: 2.06 RAP: 5.00 mmHg RVSP: 21.66 mmHg FINDINGS -------- Sinus rhythm. This was a technically adequate study. The left ventricular size is normal. There is mild concentric left ventricular hypertrophy. Overa ll left ventricular systolic function is low-normal with, an EF between 50 - 55 %. The right ventricle is normal in size. The left atrial size is normal. The right atrial size is normal. There is mild aortic valve sclerosis. There is no evidence of aortic regurgitation. Mild mitral regurgitation is present. Mild tricuspid regurgitation present. Right ventricular systolic pressure is normal at < 35 mmHg. The pulmonic valve was not well visualized. The aortic root size is normal. There is a trivial pericardial effusion present. CONCLUSIONS -------- 1. The left ventricular size is normal. 2. There is mild concentric left ventricular hypertrophy. 3. Overall left ventricular systolic function is low-normal with, an EF between 50 - 55 %. 4. The right ventricle is normal in size. 5. The left atrial size is normal. 6. The right atrial size is normal. 7. There is mild aortic valve sclerosis. 8. Mild mitral regurgitation is present. 9. Mild tricuspid regurgitation present. 10. The pulmonic valve was not well visualized. 11. The aortic root size is normal. 12. There is a trivial pericardial effusion present. PLATE GRINDER: Frieda Esqueda RDCS
[2021-04-18] MEDS: amLODIPine 10 MG TAB PO SCH (15:08)
[2021-04-18] MEDS: VALSARTAN 160 MG TAB PO SCH (15:11)
--- NOTE | 2021-04-18 17:18 | P.GSCN ---
History of Present Illness Consult date: 04/18/21 Reason for Consult: Urinary retention History of present illness: This is an 85-year-old male that presented to the hospital with weakness, fevers and chills. On presentation he was noticed to be in 1 L urinary retention, a Sky catheter was placed. At baseline he denies any voiding issues, He does have some weaker flow , but voids to completion. But of note more recently he's been having worsening frequency and more of sensation of incomplete emptying. Denies any previous history of urinary retention, history of UTIs or kidney stones. Sky catheter is in place draining clear yellow urine. UA was obtained on presentation that was negative Review of Systems - Constitutional Reports chills, Reports fever, Reports weakness - EENT Ears, nose, mouth and throat: Denies dysphagia - Cardiovascular Denies chest pain, Denies shortness of breath - Respiratory Denies cough, Denies 7 - Gastrointestinal Reports as per HPI - Genitourinary Reports urinary retention, Denies dysuria, Denies flank pain, Denies hematuria - Neurological Denies headaches, Denies syncope Past Medical History Past Medical History: Atrial Fibrillation, Diabetes Mellitus, Hyperlipidemia, Hypertension, Sleep Apnea/CPAP/BIPAP, Thyroid Disorder Additional Past Medical History / Comment(s): OCCASIONAL VERTIGO., LOW BACK PAIN THAT RADIATES TO HIPS- STATES DIFFICULTY WALKING DISTANCE. constipation, History of Any Multi-Drug Resistant Organisms: None Reported Past Surgical History: Appendectomy, Heart Catheterization With Stent, Tonsillectomy Additional Past Surgical History / Comment(s): pain clinic procedures. one cardiac stent, rosa cataracts Past Anesthesia/Blood Transfusion Reactions: Previous Problems w/ Anesthesia Additional Past Anesthesia/Blood Transfusion Reaction / Comm: AFib in recovery room after pain clinic procedure Date of Last Stent Placement:: 2018 Past Psychological History: No Psychological Hx Reported Smoking Status: Former smoker Past Alcohol Use History: Occasional Past Drug Use History: None Reported - Past Family History Mother Family Medical History: No Reported History Medications and Allergies Home Medications Medication Instructions Recorded Confirmed Type Aliskiren Hemifumarate [Aliskiren] 300 mg PO DAILY 03/29/19 04/17/21 History Metoprolol Succinate (ER) [Toprol 100 mg PO DAILY 03/29/19 04/17/21 History XL] Mirtazapine [Remeron] 30 mg PO HS 03/29/19 04/17/21 History Valsartan/Hydrochlorothiazide 1 tab PO DAILY 03/29/19 04/17/21 History [Valsartan-Hctz 320-25 mg Tab] amLODIPine BESYLATE [Norvasc] 10 mg PO DAILY 03/29/19 04/17/21 History metFORMIN HCL 1,000 mg PO DAILY 03/29/19 04/17/21 History sitaGLIPtin PHOSPHATE [Januvia] 100 mg PO DAILY 03/29/19 04/17/21 History Apixaban [Eliquis] 5 mg PO BID 06/07/19 04/17/21 History Atorvastatin [Lipitor] 40 mg PO DAILY #90 tab 07/18/19 04/17/21 Rx Levothyroxine Sodium 125 mcg PO DAILY 07/02/20 04/17/21 History Nitroglycerin Sl Tabs [Nitrostat] 0.4 mg SUBLINGUAL Q5M PRN 07/02/20 04/17/21 History ALPRAZolam [Xanax] 0.5 mg PO Q8H PRN 04/17/21 04/17/21 History Cholecalciferol [Vitamin D3 (25 50 mcg PO DAILY 04/17/21 04/17/21 History Mcg = 1000 Iu)] Allergies Allergy/AdvReac Type Severity Reaction Status Date / Time shellfish derived [Shellfish] Allergy Anaphylaxis Verified 04/17/21 10:08 Surgical - Exam Vital Signs Temp Pulse Resp BP Pulse Ox 98.2 F 91 16 119/75 94 L 04/17/21 08:26 04/17/21 08:26 04/17/21 08:26 04/17/21 08:26 04/17/21 08:26 - General well developed, well nourished, no distress, no pain - Eyes PERRL, normal ocular movement - ENT normal nares, normal mucosa - Respiratory normal expansion, normal respiratory effort - Abdomen Abdomen: soft, non tender - Genitourinary Sky in place draining clear yellow urine - Psychiatric oriented to time, oriented to person, oriented to place Results - Labs 04/18/21 05:49 04/18/21 05:49 Abnormal Lab Results - Last 24 Hours (Table) 04/17/21 04/18/21 04/18/21 Range/Units 19:37 05:49 05:49 WBC 3.91 L (4.50-10.00) X 10*3/uL RBC 4.12 L (4.40-5.60) X 10*6/uL Hct 38.8 L (39.6-50.0) % MCH 32.5 H (27.0-32.0) pg Plt Count 127 L (140-440) X 10*3/uL Lymphocytes # 0.58 L (0.90-5.00) X 10*3/uL Eosinophils # 0 L (0.04-0.35) X 10*3/uL ESR (0-15) mm/hr Anion Gap 12.70 H (4.00-12.00) mmol/L Est GFR (CKD-EPI)AfAm 58.1 L (60.0-200.0) Est GFR (CKD-EPI)NonAf 50.1 L (60.0-200.0) Glucose 153 H (70-110) mg/dL POC Glucose (mg/dL) 225 H (75-99) mg/dL Total Bilirubin 2.1 H (0.3-1.2) mg/dL C-Reactive Protein (<1.0) mg/dL HDL Cholesterol 21.0 L (40.0-60.0) mg/dL 04/18/21 04/18/21 04/18/21 Range/Units 07:29 11:28 12:45 WBC (4.50-10.00) X 10*3/uL RBC (4.40-5.60) X 10*6/uL Hct (39.6-50.0) % MCH (27.0-32.0) pg Plt Count (140-440) X 10*3/uL Lymphocytes # (0.90-5.00) X 10*3/uL Eosinophils # (0.04-0.35) X 10*3/uL ESR 25 H (0-15) mm/hr Anion Gap (4.00-12.00) mmol/L Est GFR (CKD-EPI)AfAm (60.0-200.0) Est GFR (CKD-EPI)NonAf (60.0-200.0) Glucose (70-110) mg/dL POC Glucose (mg/dL) 143 H 159 H (75-99) mg/dL Total Bilirubin (0.3-1.2) mg/dL C-Reactive Protein (<1.0) mg/dL HDL Cholesterol (40.0-60.0) mg/dL 04/18/21 Range/Units 12:45 WBC (4.50-10.00) X 10*3/uL RBC (4.40-5.60) X 10*6/uL Hct (39.6-50.0) % MCH (27.0-32.0) pg Plt Count (140-440) X 10*3/uL Lymphocytes # (0.90-5.00) X 10*3/uL Eosinophils # (0.04-0.35) X 10*3/uL ESR (0-15) mm/hr Anion Gap (4.00-12.00) mmol/L Est GFR (CKD-EPI)AfAm (60.0-200.0) Est GFR (CKD-EPI)NonAf (60.0-200.0) Glucose (70-110) mg/dL POC Glucose (mg/dL) (75-99) mg/dL Total Bilirubin (0.3-1.2) mg/dL C-Reactive Protein 5.1 H (<1.0) mg/dL HDL Cholesterol (40.0-60.0) mg/dL Microbiology - Last 24 Hours (Table) 04/17/21 09:06 Blood Culture Gram Stain - Preliminary Blood Blood Culture - Preliminary Staphylococcus epidermidis 04/17/21 09:06 Blood Culture Gram Stain - Preliminary Blood 04/17/21 09:06 Blood Culture - Final Blood 04/17/21 09:06 Blood Culture - Final Blood Diabetes panel 04/18/21 Range/Units 05:49 Sodium 138 (135-145) mmol/L Potassium 3.5 (3.5-5.5) mmol/L Chloride 102 (96-109) mmol/L Carbon Dioxide 23.3 (21.6-31.8) mmol/L BUN 23.0 (9.0-27.0) mg/dL Creatinine 1.3 (0.6-1.5) mg/dL Glucose 153 H (70-110) mg/dL Calcium 8.9 (8.7-10.3) mg/dL AST 33 (14-35) U/L ALT 26 (10-49) U/L Alkaline Phosphatase 73 (41-126) U/L Total Protein 6.5 (6.2-8.2) g/dL Albumin 4.20 (3.80-4.90) g/dL Triglycerides 148.0 (0.0-149.0) mg/dL HDL Cholesterol 21.0 L (40.0-60.0) mg/dL Calcium panel 04/18/21 Range/Units 05:49 Calcium 8.9 (8.7-10.3) mg/dL Albumin 4.20 (3.80-4.90) g/dL Pituitary panel 04/18/21 Range/Units 05:49 Sodium 138 (135-145) mmol/L Potassium 3.5 (3.5-5.5) mmol/L Chloride 102 (96-109) mmol/L Carbon Dioxide 23.3 (21.6-31.8) mmol/L BUN 23.0 (9.0-27.0) mg/dL Creatinine 1.3 (0.6-1.5) mg/dL Glucose 153 H (70-110) mg/dL Calcium 8.9 (8.7-10.3) mg/dL Adrenal panel 04/18/21 Range/Units 05:49 Sodium 138 (135-145) mmol/L Potassium 3.5 (3.5-5.5) mmol/L Chloride 102 (96-109) mmol/L Carbon Dioxide 23.3 (21.6-31.8) mmol/L BUN 23.0 (9.0-27.0) mg/dL Creatinine 1.3 (0.6-1.5) mg/dL Glucose 153 H (70-110) mg/dL Calcium 8.9 (8.7-10.3) mg/dL Total Bilirubin 2.1 H (0.3-1.2) mg/dL AST 33 (14-35) U/L ALT 26 (10-49) U/L Alkaline Phosphatase 73 (41-126) U/L Total Protein 6.5 (6.2-8.2) g/dL Albumin 4.20 (3.80-4.90) g/dL Assessment and Plan Assessment: 85-year-old male admitted to the hospital with weakness and fever. Urology is consultative for 1 L urinary retention. Given his volume of urinary retention, recommend he keep the catheter for minimum of 1 week. He can be discharged home with the Sky catheter, will follow-up as an outpatient in 1 week for trial of void. Recommend continuing Flomax patient need to be discharged home with Flomax.
[2021-04-18 17:20] LABS: Glucose,Whole Blood 124 mg/dL (75-99)
[2021-04-18] MEDS: TAMSULOSIN 0.4 MG CAP.ER.24H PO SCH (18:06)
[2021-04-18] MEDS: SODIUM CHLORIDE 0.9% 1,000 ML IV SCH (18:06)
[2021-04-18 21:04] LABS: Glucose,Whole Blood 177 mg/dL (75-99)
[2021-04-18] MEDS: MIRTAZAPINE 15 MG TAB PO SCH (21:41)
[2021-04-18 23:36] LABS: Appearance,Urine Cloudy (Clear); Bacteria,Urine Rare /hpf; Bilirubin,Urine Negative (Negative); Blood,Urine Moderate (Negative); Color,Urine Yellow; Glucose,Urine (UA) Negative (Negative); Ketones,Urine Negative (Negative); Leukocyte Esterase,Urine Large (Negative); Mucus,Urine Rare /hpf; Nitrite,Urine Negative (Negative); Protein,Urine Trace (Negative); RBC,Urine 10 /hpf (0-5); Squamous Epithelial Cell,Urine 1 /hpf (0-4); Urobilinogen,Urine <2.0 mg/dL (<2.0); WBC,Urine 84 /hpf (0-5)
[2021-04-19] MEDS: SODIUM CHLORIDE 0.9% 1,000 ML IV SCH (02:10)
[2021-04-19 03:06] VITALS: RESP 18
[2021-04-19] MEDS: LEVOTHYROXINE 125 MCG TAB PO SCH (05:34)
[2021-04-19] MEDS ORDERED: VANCOMYCIN 1,500 MG in SODIUM CHLORIDE 0.9% 250 ML IVPB SCH (06:00)
[2021-04-19 06:43] LABS: ALT 24 U/L (4-49); AST 37 U/L (17-59); African American GFR (CKD) 64 (>60 ml/min/1.73 sqM); Albumin/Globulin Ratio 1.5; Alkaline Phosphatase 76 U/L (38-126); Anion Gap 12 mmol/L; Blood Urea Nitrogen 21 mg/dL (9-20); C Reactive Protein 7.9 mg/dL (<1.0); Calcium 8.9 mg/dL (8.4-10.2); Carbon Dioxide 22 mmol/L (22-30); Chloride 103 mmol/L (98-107); Globulin 2.7 g/dL; Glucose 145 mg/dL (74-99); Non-African American GFR(CKD) 55 (>60 ml/min/1.73 sqM); Potassium 3.5 mmol/L (3.5-5.1); Sodium 137 mmol/L (137-145); Total Bilirubin 2.2 mg/dL (0.2-1.3); Total Protein 6.7 g/dL (6.3-8.2)
[2021-04-19 06:55] LABS: Glucose,Whole Blood 148 mg/dL (75-99)
[2021-04-19] MEDS: METOPROLOL SUCCINATE (ER) 100 MG TAB.ER.24H PO SCH (07:06)
[2021-04-19] MEDS: INSULIN ASPART (NovoLOG) 100 UNIT/ML VIAL SQ SCH ×2 (08:23→12:12)
[2021-04-19] MEDS: CHOLECALCIFEROL 25 MCG (1000 IU) TABLET PO SCH (08:24)
[2021-04-19] MEDS: ATORVASTATIN 40 MG TAB PO SCH (08:24)
[2021-04-19] MEDS: APIXABAN 5 MG TAB PO SCH (08:24)
[2021-04-19] MEDS: DILTIAZEM ORAL 30 MG TAB PO SCH (08:24)
[2021-04-19] MEDS: ALISKIREN HEMIFUMARATE 300 MG PO SCH (08:26)
[2021-04-19] MEDS: LINAGLIPTIN 5 MG TABLET PO SCH (08:26)
--- NOTE | 2021-04-19 09:33 | P.PN ---
Subjective Progress Note Date: 04/19/21 This 85-year-old gentleman who follows with Dr. Rudd in the office. He has a past medical history significant for CAD status post stent to the mid left circumflex in 2018, hypertension, type 2 diabetes, dyslipidemia, chronic persistent atrial fibrillation on Eliquis, peripheral artery disease, chronic kidney disease. He resented to the emergency department after developing an episode of lightheadedness and dizziness at which time he attempted to sit down on a bench and he missed and fell on the floor. Denies any syncope. He apparently had not had anything to eat or drink prior to this event. There was some mention of fever and chills at home since Wednesday. There is evidence of UTI on urinalysis. He is in atrial fibrillation and heart rates were poorly controlled. He was started on Cardizem yesterday. His hydrochlorothiazide was discontinued. Heart rates have been mostly controlled through the night but somewhat elevated this morning prior to his medications. He is overall feeling well. Denies any chest discomfort, shortness of breath, palpitations, further fever or chills and denies any further lightheadedness or dizziness. Objective - Vital Signs Vital signs: Vital Signs Temp 98.3 F 04/19/21 07:00 Pulse 122 H 04/19/21 07:00 Resp 18 04/19/21 07:00 BP 138/79 04/19/21 07:00 Pulse Ox 95 04/19/21 07:00 Intake & Output 04/18/21 04/19/21 04/19/21 18:59 06:59 18:59 Intake Total 600 Output Total 1780 1600 Balance -1779 Intake: Intake, IV Titration 600 Amount Sodium Chloride 0.9% 1, 600 000 ml @ 75 mls/hr IV . [id number] [facility] Rx#:[id number] Output: Urine 1780 1600 Other: Voiding Method Indwelling Catheter Indwelling Catheter - Exam PHYSICAL EXAMINATION: HEENT: Head is atraumatic, normocephalic. Pupils equal, round. Neck is supple. There is no elevated jugular venous pressure. HEART EXAMINATION: Heart sounds irregularly irregular, S1 and S2 systolic murmur. CHEST EXAMINATION: Lungs are clear to auscultation. No chest wall tenderness is noted on palpation or with deep breathing. ABDOMEN: Soft, nontender. Bowel sounds are heard. No organomegaly noted. EXTREMITIES: 2+ peripheral pulses with no evidence of peripheral edema and no calf tenderness noted. NEUROLOGIC patient is awake, alert and oriented x3. . - Labs CBC & Chem 7: 04/18/21 05:49 04/19/21 05:49 Labs: Abnormal Lab Results - Last 24 Hours (Table) 04/18/21 04/18/21 04/18/21 Range/Units 05:49 05:49 11:28 WBC 3.91 L (4.50-10.00) X 10*3/uL RBC 4.12 L (4.40-5.60) X 10*6/uL Hct 38.8 L (39.6-50.0) % MCH 32.5 H (27.0-32.0) pg Plt Count 127 L (140-440) X 10*3/uL Lymphocytes # 0.58 L (0.90-5.00) X 10*3/uL Eosinophils # 0 L (0.04-0.35) X 10*3/uL ESR (0-15) mm/hr Anion Gap 12.70 H (4.00-12.00) mmol/L BUN (9-20) mg/dL Est GFR (CKD-EPI)AfAm 58.1 L (60.0-200.0) Est GFR (CKD-EPI)NonAf 50.1 L (60.0-200.0) Glucose 153 H (70-110) mg/dL POC Glucose (mg/dL) 159 H (75-99) mg/dL Total Bilirubin 2.1 H (0.3-1.2) mg/dL C-Reactive Protein (<1.0) mg/dL HDL Cholesterol 21.0 L (40.0-60.0) mg/dL Urine Protein (Negative) Urine Blood (Negative) Ur Leukocyte Esterase (Negative) Urine RBC (0-5) /hpf Urine WBC (0-5) /hpf Urine Bacteria (None) /hpf Urine Mucus (None) /hpf 04/18/21 04/18/21 04/18/21 Range/Units 12:45 12:45 17:19 WBC (4.50-10.00) X 10*3/uL RBC (4.40-5.60) X 10*6/uL Hct (39.6-50.0) % MCH (27.0-32.0) pg Plt Count (140-440) X 10*3/uL Lymphocytes # (0.90-5.00) X 10*3/uL Eosinophils # (0.04-0.35) X 10*3/uL ESR 25 H (0-15) mm/hr Anion Gap (4.00-12.00) mmol/L BUN (9-20) mg/dL Est GFR (CKD-EPI)AfAm (60.0-200.0) Est GFR (CKD-EPI)NonAf (60.0-200.0) Glucose (70-110) mg/dL POC Glucose (mg/dL) 124 H (75-99) mg/dL Total Bilirubin (0.3-1.2) mg/dL C-Reactive Protein 5.1 H (<1.0) mg/dL HDL Cholesterol (40.0-60.0) mg/dL Urine Protein (Negative) Urine Blood (Negative) Ur Leukocyte Esterase (Negative) Urine RBC (0-5) /hpf Urine WBC (0-5) /hpf Urine Bacteria (None) /hpf Urine Mucus (None) /hpf 04/18/21 04/18/21 04/19/21 Range/Units 21:03 23:02 05:49 WBC (4.50-10.00) X 10*3/uL RBC (4.40-5.60) X 10*6/uL Hct (39.6-50.0) % MCH (27.0-32.0) pg Plt Count (140-440) X 10*3/uL Lymphocytes # (0.90-5.00) X 10*3/uL Eosinophils # (0.04-0.35) X 10*3/uL ESR (0-15) mm/hr Anion Gap (4.00-12.00) mmol/L BUN 21 H (9-20) mg/dL Est GFR (CKD-EPI)AfAm (60.0-200.0) Est GFR (CKD-EPI)NonAf (60.0-200.0) Glucose 145 H (70-110) mg/dL POC Glucose (mg/dL) 177 H (75-99) mg/dL Total Bilirubin 2.2 H (0.3-1.2) mg/dL C-Reactive Protein 7.9 H (<1.0) mg/dL HDL Cholesterol (40.0-60.0) mg/dL Urine Protein Trace H (Negative) Urine Blood Moderate H (Negative) Ur Leukocyte Esterase Large H (Negative) Urine RBC 10 H (0-5) /hpf Urine WBC 84 H (0-5) /hpf Urine Bacteria Rare H (None) /hpf Urine Mucus Rare H (None) /hpf 04/19/21 Range/Units 06:54 WBC (4.50-10.00) X 10*3/uL RBC (4.40-5.60) X 10*6/uL Hct (39.6-50.0) % MCH (27.0-32.0) pg Plt Count (140-440) X 10*3/uL Lymphocytes # (0.90-5.00) X 10*3/uL Eosinophils # (0.04-0.35) X 10*3/uL ESR (0-15) mm/hr Anion Gap (4.00-12.00) mmol/L BUN (9-20) mg/dL Est GFR (CKD-EPI)AfAm (60.0-200.0) Est GFR (CKD-EPI)NonAf (60.0-200.0) Glucose (70-110) mg/dL POC Glucose (mg/dL) 148 H (75-99) mg/dL Total Bilirubin (0.3-1.2) mg/dL C-Reactive Protein (<1.0) mg/dL HDL Cholesterol (40.0-60.0) mg/dL Urine Protein (Negative) Urine Blood (Negative) Ur Leukocyte Esterase (Negative) Urine RBC (0-5) /hpf Urine WBC (0-5) /hpf Urine Bacteria (None) /hpf Urine Mucus (None) /hpf Microbiology - Last 24 Hours (Table) 04/17/21 09:06 Blood Culture Gram Stain - Preliminary Blood Blood Culture - Preliminary Staphylococcus epidermidis 04/17/21 09:06 Blood Culture Gram Stain - Preliminary Blood Assessment and Plan Assessment: #1 of dizziness and lightheadedness #2 fever and chills with evidence of UTI #3 urinary retention, being discharged home with Sky catheter #4 CAD status post PCI to left circumflex #5 hypertension #6 chronic persistent atrial fibrillation #7 type 2 diabetes #8 PAD #9 dyslipidemia Plan: From cardiology to medications were reviewed and will continue the same. Patient may be discharged home from our standpoint and follow up in the office in the next 2 weeks. [employer] note has been reviewed, I agree with a documented findings and plan of care. Patient was seen and examined.
[2021-04-19 10:08] LABS: HCT 38.5 % (39.6-50.0); HGB 13.3 g/dL (13.0-17.0); MCH 32.9 pg (27.0-32.0); MCHC 34.5 g/dL (32.0-37.0); MCV 95.3 fL (80.0-97.0); Mean Platelet Volume 10.6 fL (9.5-12.2); Platelet Count 136 X 10*3/uL (140-440); RBC 4.04 X 10*6/uL (4.40-5.60); WBC 5.35 X 10*3/uL (4.50-10.00)
[2021-04-19 11:46] LABS: Glucose,Whole Blood 180 mg/dL (75-99)
[2021-04-19 11:54] LABS: Basophils # (A) 0.03 X 10*3/uL (0.00-0.10); Basophils % (A) 0.6 %; Eosinophils # (A) 0.02 X 10*3/uL (0.04-0.35); Eosinophils % (A) 0.4 %; Lymphocytes # (A) 1.14 X 10*3/uL (0.90-5.00); Lymphocytes % (A) 21.3 %; Monocytes # (A) 1.08 X 10*3/uL (0.20-1.00); Monocytes % (A) 20.2 %; Neutrophils # (A) 3.06 X 10*3/uL (1.80-7.70); Neutrophils % (A) 57.1 %
[2021-04-19] MEDS ORDERED: LEVOFLOXACIN 500MG-D5W PMX 500 MG in DEXTROSE/WATER 1 100ML.BAG IVPB SCH (12:00)
[2021-04-19] MEDS: VALSARTAN 160 MG TAB PO SCH (12:12)
--- NOTE | 2021-04-19 13:48 | P.DS ---
Providers Date of admission: 04/18/21 13:52 Expected date of discharge: 04/19/21 Attending physician: Lakesha Tomlin Consults: 04/17/21 11:59 Consult Physician Routine Consulting Provider: [facility] Consult Reason/Comments: syncope Do you want consulting provider notified?: Yes 04/17/21 17:24 Consult Physician Routine Consulting Provider: Krystyna Lawler Consult Reason/Comments: fever, chills Do you want consulting provider notified?: Yes 04/17/21 18:14 Consult Physician Routine Consulting Provider: Robel Sanchez Consult Reason/Comments: urinary retention Do you want consulting provider notified?: Yes Primary care physician: Micky Cee [facility] Course: Diagnosis on discharge: 1. Syncopal episode 2. Positive blood culture for gram-positive cocci in clusters Patient was started on IV vancomycin. Infectious disease consultation was requested. However blood culture was identified as staph epidermidis later on patient was evaluated by Dr. Lawler and IV vancomycin was discontinued. 3. Underlying history of hypertension 4. Underlying history of hypothyroidism 5. Underlying history of hyperlipidemia 6. Underlying history of nyv-qjzsjnv-canqhzpuy diabetes mellitus 7. Underlying history of paroxysmal atrial fibrillation, during this admission patient had episodes of atrial fibrillation with rapid ventricular response he was seen by cardiology and medication were adjusted Norvasc was discontinued and Cardizem CD 120 mg by mouth daily was added to his regimen he will also continue taking Toprol-XL 100 mg daily 8. Urinary retention, on presentation patient had more than 1 L of urine in the bladder on bladder scan, when Monroy catheter was inserted, it drained more than 1.8 L, patient was started on Flomax 0.4 mg daily, urology consultation was requested, they recommended to continue was Monroy catheter for at least one week, continue with Flomax 0.4 mg daily, and follow-up with urology within 1 week as outpatient. 9. Urinary tract infection, first urine analysis was negative, however repeat urine analysis revealed significant urinary tract infection, patient was started on IV Levaquin he was switched to oral Levaquin and was discharged home, urine culture is still pending will monitor as outpatient and adjust antibiotic if needed. Hospital course: Ervin Pearson is an 85 year old male who presented to [facility] emergency room with a chief complaint of syncope, patient states that he was golfing this morning when he started having some severe chills, and then he had an episode of loss of consciousness, at that time he had an elevated temperature of 102, he was brought into emergency room. He was evaluated in the emergency room vital examination on presentation revealed a temperature of 98.2 pulse 91 respirations 16 blood pressure 119/75 pulse ox 94% on room air Laboratory data revealed a white blood count of 4.2 hemoglobin 13.7 platelet count 146 sodium 135 potassium 3.5 BUN 21 creatinine 1.28 glucose 176 total bilirubin 2.0 normal AST a LT and alkaline phosphatase normal troponin COVID-19 PCR testing was negative. Testing in the emergency room revealed , computed tomography scan of the brain revealed moderate bifrontal atrophy with mild generalized cerebral volume loss and chronic small vessel ischemic disease no acute intracranial abnormality computed tomography scan of the cervical spine revealed no acute fracture. Chest x-ray did not reveal any evidence of acute abnormality. Patient was admitted to medical floor for further evaluation and treatment, echocardiogram and carotid Doppler were ordered cardiology consultation was requested Past medical history is significant for history of hypertension, history of hypothyroidism, history of hyperlipidemia, history of [id number]-dgotllotx diabetes mellitus, history of obstructive sleep apnea, and history of paroxysmal atrial fibrillation maintained on eliquis. On review of systems patient is alert and oriented 3 in no apparent distress at the time of my exam he was having severe uncontrollable shaking chills, otherwise he denies any complaints, there is no fever no headache or dizziness no chest pain no shortness of breath no palpitation no cough no nausea or vomiting no abdominal pain no diarrhea no blood in the stools no burning with urination no frequency or urgency and no hematuria, there is no weakness or numbness in any of the extremities no change in vision speech or gait. On 04/18/2021 patient is alert and oriented 3. Patient maintained on vancomycin. Carotid Doppler was completed and negative. 2-D echo ordered. Patient having positive blood cultures gram-positive cocci in clusters. Infectious disease, cardiology and urology services are consulted. UA negative. Chest x-ray negative. Patient denies any chest pain or shortness breath. Patient denies nausea vomiting or diarrhea. Patient denies any urinary burning or frequency On 04/19/2021 Patient was seen and examined on the medical floor, he is alert and oriented x 3 in no distress, he denies any complaints there is no fever or chills no headache or dizziness no chest pain no shortness of breath no palpitation no cough no nausea or vomiting no abdominal pain no diarrhea no blood in the stools no burning with urination no frequency or urgency and no hem aturia, there is no weakness or numbness in any of the extremities no change in vision speech or gait. Patient is very eager to be discharged home, he will be discharged today follow-up with our office in 3-4 days follow-up with urology in 1 week, he was given a prescription for Cardizem CD 120 mg daily, a prescription for Levaquin 500 mg daily for 7 days and a prescription for Flomax 0.4 mg daily. Plan - Discharge Summary Discharge Rx Participant: No New Discharge Prescriptions: New Tamsulosin [Flomax] 0.4 mg PO PC-SUPPER cap.er.24h Levofloxacin [Levaquin] 500 mg PO DAILY 7 Days #7 tab Diltiazem Cd [Cardizem Cd] 120 mg PO Q24HR 30 Days #30 cap Continue Mirtazapine [Remeron] 30 mg PO HS metFORMIN HCL 1,000 mg PO DAILY sitaGLIPtin PHOSPHATE [Januvia] 100 mg PO DAILY Valsartan/Hydrochlorothiazide [Valsartan-Hctz 320-25 mg Tab] 1 tab PO DAILY Metoprolol Succinate (ER) [Toprol XL] 100 mg PO DAILY Aliskiren Hemifumarate [Aliskiren] 300 mg PO DAILY Apixaban [Eliquis] 5 mg PO BID Atorvastatin [Lipitor] 40 mg PO DAILY #90 tab Levothyroxine Sodium 125 mcg PO DAILY Nitroglycerin Sl Tabs [Nitrostat] 0.4 mg SUBLINGUAL Q5M PRN PRN Reason: Chest Pain ALPRAZolam [Xanax] 0.5 mg PO Q8H PRN PRN Reason: Anxiety Cholecalciferol [Vitamin D3 (25 Mcg = 1000 Iu)] 50 mcg PO DAILY Discontinued amLODIPine BESYLATE [Norvasc] 10 mg PO DAILY Discharge Medication List Aliskiren Hemifumarate [Aliskiren] 300 mg PO DAILY 03/29/19 [History] Metoprolol Succinate (ER) [Toprol XL] 100 mg PO DAILY 03/29/19 [History] Mirtazapine [Remeron] 30 mg PO HS 03/29/19 [History] Valsartan/Hydrochlorothiazide [Valsartan-Hctz 320-25 mg Tab] 1 tab PO DAILY 03/29/19 [History] metFORMIN HCL 1,000 mg PO DAILY 03/29/19 [History] sitaGLIPtin PHOSPHATE [Januvia] 100 mg PO DAILY 03/29/19 [History] Apixaban [Eliquis] 5 mg PO BID 06/07/19 [History] Atorvastatin [Lipitor] 40 mg PO DAILY #90 tab 07/18/19 [Rx] Levothyroxine Sodium 125 mcg PO DAILY 07/02/20 [History] Nitroglycerin Sl Tabs [Nitrostat] 0.4 mg SUBLINGUAL Q5M PRN 07/02/20 [History] ALPRAZolam [Xanax] 0.5 mg PO Q8H PRN 04/17/21 [History] Cholecalciferol [Vitamin D3 (25 Mcg = 1000 Iu)] 50 mcg PO DAILY 04/17/21 [History] Diltiazem Cd [Cardizem Cd] 120 mg PO Q24HR 30 Days #30 cap 04/19/21 [Rx] Levofloxacin [Levaquin] 500 mg PO DAILY 7 Days #7 tab 04/19/21 [Rx] Tamsulosin [Flomax] 0.4 mg PO PC-SUPPER cap.er.24h 04/19/21 [Rx] Follow up Appointment(s)/Referral(s): Jazmin Rudd MD [STAFF PHYSICIAN] - 05/01/21 8:45 am Khurram Guillen MD [STAFF PHYSICIAN] - 1 Week Micky Alves MD [Primary Care Provider] - 1-2 days Activity/Diet/Wound Care/Special Instructions: Discharge with monroy catheter. To keep for 1 week and followup with Dr Guillen
[2021-04-19] MEDS: amLODIPine 10 MG TAB PO SCH (13:55)
[2021-04-19 14:37] VITALS: BP 122/70; PULSE 88; TEMP 97
--- NOTE | 2021-04-19 14:58 | PN ---
PROGRESS NOTE DATE OF SERVICE: 04/19/2021 REASON FOR FOLLOW UP: 1. Pain likely urinary tract infection. 2. Positive blood culture, likely contaminant. INTERVAL HISTORY: The patient has been afebrile. The patient is feeling better. Breathing comfortably. Denies having any chest pain, shortness of breath or cough. No abdominal pain. No diarrhea. PHYSICAL EXAMINATION: Blood pressure 138/79, pulse of 94, temperature 98.3, he is 95% on room air. General description is an elderly male lying in bed in no distress. Respiratory system: Unlabored breathing, clear to auscultation anteriorly. Heart S1, S2. Regular rate and rhythm. Abdomen is soft, no tenderness. Extremities with no edema to the feet. LABORATORY DATA: Hemoglobin 13.3, white count 5.35, BUN of 21, creatinine 1.0. Repeat urine is positive with large leukocyte estrace, 84 WBC. DIAGNOSTIC IMPRESSION AND PLAN: Patient admitted to the hospital with fever with urinary symptoms, urinary retention, likely symptomatic urinary tract infection. The patient did have a negative UA on admission, more likely a mistake either on the part of the lab or collection with repeat urine positive. The patient responded to Levaquin. He will finish therapy with oral Levaquin. Positive blood culture with staph epi, likely contaminant, as the patient has no clinical symptoms to go along with it. Plan of care was discussed with the admitting physician working on discharge. DEISI / STEPHANIE: [id number] /
[2021-04-20] MEDS ORDERED: LEVOFLOXACIN 250MG-D5W PMX 250 MG in DEXTROSE/WATER 1 50ML.BAG IVPB SCH (12:00)
== END 2021-04-19 15:38 | disposition home or self-care (01) ==
LOC: EC 08:21 → 6NMEDSUR 12:03 → OBSVTOIN 04-18 13:52 → INTOOBSV 04-18 13:52 → UNDODISIN 04-19 15:38
PROVIDERS: ADMIT Internal Medicine; ATTEND Internal Medicine
DX: R55 Syncope and collapse (principal); N39.0 Urinary tract infection, site not specified; R33.9 Retention of urine, unspecified; I48.19 Other persistent atrial fibrillation; E86.0 Dehydration; E78.5 Hyperlipidemia, unspecified; E03.9 Hypothyroidism, unspecified; E11.22 Type 2 diabetes mellitus with diabetic chronic kidney disease; E11.51 Type 2 diabetes mellitus with diabetic peripheral angiopathy without gangrene; I12.9 Hypertensive chronic kidney disease with stage 1 through stage 4 chronic kidney disease, or unspecified chronic kidney disease; I25.10 Atherosclerotic heart disease of native coronary artery without angina pectoris; W18.30XA Fall on same level, unspecified, initial encounter; M43.13 Spondylolisthesis, cervicothoracic region; N18.9 Chronic kidney disease, unspecified; G47.33 Obstructive sleep apnea (adult) (pediatric); Z20.822 Contact with and (suspected) exposure to COVID-19; Z79.01 Long term (current) use of anticoagulants; Z79.84 Long term (current) use of oral hypoglycemic drugs; Z79.890 Hormone replacement therapy; Z79.899 Other long term (current) drug therapy; Z95.5 Presence of coronary angioplasty implant and graft; Z87.891 Personal history of nicotine dependence; Y92.39 Other specified sports and athletic area as the place of occurrence of the external cause
CPT/HCPCS: 96361 ×3; 96365; 96366 ×2; 96367; 96375; 99285; 36415; 93005; 93306; 80061; 80053 ×3; 85652; 83605 ×2; 84484; 85025 ×3; 85610; 85730; 86140 ×2; 81003; 81001; 87040 ×3; 87086; 83036; 87635; 71046; 93880; 72125; 70450; G0378 ×3; J3370 ×2; J2060; J1956 ×2; J0696

== ENCOUNTER 2022-09-26 11:58 | Emergency (ER) | payer MEDICARE ==
[2022-09-26 12:06] VITALS: BP 158/94; PULSE 104; RESP 18; TEMP 98.2
[2022-09-26] MEDS ORDERED: DIPH,PERTUS(ACELL)TETVAC-LF 0.5 ML VIAL IM ONE (12:15)
[2022-09-26] MEDS ORDERED: SODIUM CHLORIDE 0.9% 1,000 ML IV STA (12:15)
[2022-09-26] MEDS ORDERED: methylPREDNISolone SOD SUCCI 125 MG/2 ML VIAL IV STA (12:17)
[2022-09-26] MEDS ORDERED: diphenhydrAMINE 50 MG/ML 1 ML VIAL IVP STA (12:17)
[2022-09-26] MEDS ORDERED: FAMOTIDINE 20 MG/2 ML VIAL IV STA (12:17)
[2022-09-26] MEDS ORDERED: MORPHINE SULFATE 2 MG/ML SYRINGE IVP STA (12:17)
--- NOTE | 2022-09-26 12:27 | ED ---
General Adult HPI - General Chief complaint: Head Injury Stated complaint: fall Time Seen by Provider: 09/26/22 12:06 Source: patient, RN notes reviewed, old records reviewed Mode of arrival: wheelchair Limitations: no limitations - History of Present Illness Initial comments: Patient is an 87-year-old male with past medical history remarkable for atrial fibrillation on Eliquis, diabetes, hypertension, thyroid disorder who presents emergency Department complaining of a fall. Patient was personally 8-10 feet up in his attic when he fell backwards and landed on his bottom and then hit the back of his head on cement. Uncertain if he lost consciousness. Is on blood thinners. Endorses lower back pain, pelvic pain, nonspecific abdominal pain. Also endorses right elbow pain, left knee pain. Denies any chest pain. Mild facial pain. Mild pain to the posterior head. Was brought in by family for further evaluation. Able to move all 4 extremities. No sensory deficits. No blurry vision. Fall occurred shortly prior to arrival. Patient was placed in room 19 for my evaluation. - Related Data Home Medications Medication Instructions Recorded Confirmed Aliskiren Hemifumarate [Aliskiren] 300 mg PO DAILY 03/29/19 04/17/21 Metoprolol Succinate (ER) [Toprol 100 mg PO DAILY 03/29/19 04/17/21 XL] Mirtazapine [Remeron] 30 mg PO HS 03/29/19 04/17/21 Valsartan/Hydrochlorothiazide 1 tab PO DAILY 03/29/19 04/17/21 [Valsartan-Hctz 320-25 mg Tab] metFORMIN HCL [Glucophage] 1,000 mg PO DAILY 03/29/19 04/17/21 sitaGLIPtin PHOSPHATE [Januvia] 100 mg PO DAILY 03/29/19 04/17/21 Apixaban [Eliquis] 5 mg PO BID 06/07/19 04/17/21 Levothyroxine Sodium 125 mcg PO DAILY 07/02/20 04/17/21 Nitroglycerin Sl Tabs [Nitrostat] 0.4 mg SUBLINGUAL Q5M PRN 07/02/20 04/17/21 ALPRAZolam [Xanax] 0.5 mg PO Q8H PRN 04/17/21 04/17/21 Cholecalciferol [Vitamin D3 (25 50 mcg PO DAILY 04/17/21 04/17/21 Mcg = 1000 Iu)] Previous Rx's Medication Instructions Recorded Atorvastatin [Lipitor] 40 mg PO DAILY #90 tab 07/18/19 Diltiazem Cd [Cardizem Cd] 120 mg PO Q24HR 30 Days #30 cap 04/19/21 Levofloxacin [Levaquin] 500 mg PO DAILY 7 Days #7 tab 04/19/21 Tamsulosin [Flomax] 0.4 mg PO PC-SUPPER cap.er.24h 04/19/21 Allergies Allergy/AdvReac Type Severity Reaction Status Date / Time shellfish derived [Shellfish] Allergy Anaphylaxis Verified 09/26/22 12:00 Review of Systems ROS Statement: Those systems with pertinent positive or pertinent negative responses have been documented in the HPI. Review of Systems: CONST: Denies fever EYES: Denies blurry vision ENT: Denies nasal congestion C/V: Denies Chest pain RESP: Denies shortness of breath GI: Denies abdominal pain : Denies dysuria SKIN: Endorses posterior scalp laceration MSK: Endorses joint pain NEURO: Denies headache ROS Other: All systems not noted in ROS Statement are negative. Past Medical History Past Medical History: Atrial Fibrillation, Diabetes Mellitus, Hyperlipidemia, Hypertension, Sleep Apnea/CPAP/BIPAP, Thyroid Disorder Additional Past Medical History / Comment(s): OCCASIONAL VERTIGO., LOW BACK PAIN THAT RADIATES TO HIPS- STATES DIFFICULTY WALKING DISTANCE. constipation, History of Any Multi-Drug Resistant Organisms: None Reported Past Surgical History: Appendectomy, Heart Catheterization With Stent, Tonsillectomy Additional Past Surgical History / Comment(s): pain clinic procedures. one cardiac stent, rosa cataracts Past Anesthesia/Blood Transfusion Reactions: Previous Problems w/ Anesthesia Additional Past Anesthesia/Blood Transfusion Reaction / Comment(s): AFib in recovery room after pain clinic procedure Date of Last Stent Placement:: 2018 Past Psychological History: No Psychological Hx Reported Smoking Status: Former smoker Past Alcohol Use History: Occasional Past Drug Use History: None Reported - Past Family History Mother Family Medical History: No Reported History General Exam - General Exam Comments Initial Comments: General: Appears in moderate distress secondary to pain. HEAD: Patient has an abrasion/laceration located over the posterior scalp. Negative rao sign. Negative raccoon eyes. Negative hemotympanum. EYES: PERRLA, EOMI, conjunctiva normal, no discharge. Pulses are 2 mm and equal bilaterally. ENT: Hearing grossly intact, normal oropharynx. RESPIRATORY: Clear breath sounds bilaterally. No wheezes, rales, or rhonchi. C/V: Irregular rate and rhythm. S1 and S2 auscultated, no edema, peripheral pulses 2+ and intact throughout ABD: Mild nonspecific flank tenderness to palpation bilaterally. No guarding. No rebound tenderness. No peritoneal signs. EXT: Normal range of motion of all 4 extremities. No obvious deformities. Tenderness to palpation and with movement of the left knee, right elbow. Tenderness to palpation in the midline mid thoracic, lumbar spine. Pelvis is stable. Tenderness to palpation in the coccyx. Good rectal tone. SKIN: No rashes or lesions observed on exposed skin. NEURO: Alert and oriented x 4. Cranial nerves II-XII intact. No focal sensory or strength deficits. GCS of 15. NIH is 0. Limitations: no limitations Course Vital Signs 09/26/22 12:00 Temperature 98.2 F Pulse Rate 104 H Respiratory 18 Rate Blood Pressure 158/94 O2 Sat by Pulse 99 Oximetry Procedures - Orthopedic Splinting/Casting Injury #1 Side: right Upper Extremity Injury Location: elbow Upper Extremity Immobilizer: posterior splint Additional Comments: Neurovascularly intact following the procedure acute. 2+ radial and ulnar pulses on the right hand/wrist with intact sensation. Medical Decision Making - Medical Decision Making Based on the patient's presentation and physical exam, patient is on blood thinners and fell from a height greater than standing. Therefore patient was made a level II trauma activation.Cervical spine precautions were followed. Patient was placed in a cervical collar. ATLS protocol was followed. Trauma was activated at 1209. I spoke with the attending trauma surgeon at 1210, Dr. Garcia. He was in agreement with the plan. We will obtain CT imaging of the spine, head, face, abdomen, chest. Chest and pelvis x-ray in addition to right elbow and left knee x-rays also be obtained. He'll be given 2 g Ancef, tetanus booster, 1 L fluid bolus, analgesia medications. Patient does have a history of shellfish ALLERGY and therefore will be given premedications prior to CT. Patient was in agreement this plan. Vital signs within acceptable limits. Patient's laboratory studies returned and were relatively unremarkable including normal hemoglobin. Alcohol is undetectable. Screening EKG reveals atrial fibrillation which is normal with no signs of acute ischemia. Chest x-ray and pelvic x-ray as interpreted by myself revealed no evidence of acute traumatic injury. No pneumothorax. Patient's left knee x-rays interpreted by myself reveals no evidence of acute traffic injury, no fracture. Patient's right elbow x-ray as interpreted by myself reveals a fracture that is minimally displaced of the olecranon spur. Patient's CT brain is interpreted by myself reveals no evidence of acute intracranial hemorrhage, midline shift, mass effect. 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 Radiology corroborates is read. As interpreted by myself, the CT cervical, thoracic, lumbar spines revealed no acute fractures or subluxations. Patient's CT of the chest, abdomen, pelvis as interpreted by myself reveals no evidence of acute traumatic injury. Radiology corroborates all these findings. On reevaluation, patient was updated on the results of his imaging. I made him aware of the calcified meningioma as well. Patient states he was unaware of his calcified meningioma, however was present on CT imaging upon chart review as far back as 2019. We're able to clear his cervical spine and removed the cervical collar. We cleaned up his posterior scalp abrasion which does not require danica at this time. He does have a skin tear on his right hand as well which will be cleaned and covered. No stitches required at this time. I splinted the patient in a posterior mold splint of the right elbow with a sling. He'll be instructed to follow-up with his orthopedic surgeon Dr. Price. He was in agreement with this plan. We discussed that he is likely experiencing a coccygeal contusion, in addition to the right olecranon spur fracture. He expressed understanding. Fall precautions were discussed. Strict return precautions were discussed. He will be discharged home at this time. Patient does have analgesia medications at home. Following splinting, patient had intact distal radial and ulnar pulses on the right as well as intact sensation. I instructed the patient to follow up with their PCP in the next 1-3 days. I provided contact information for follow up with Dr. Price. I explained that the patient should return to the emergency department if they experience any worsening symptoms. Strict return precautions were discussed with the patient. The patient expressed understanding of these instructions. I answered all questions that the patient had. The patient was discharged home in good condition with their prescriptions and follow up information. - Lab Data Result diagrams: 09/26/22 12:09/26/22 12: Lab Results 09/26/22 09/26/22 09/26/22 Range/Units 12: 12: 12: WBC 6.8 (3.8-10.6) k/uL RBC 4.19 L (4.30-5.90) m/uL Hgb 13.6 (13.0-17.5) gm/dL Hct 39.5 (39.0-53.0) % MCV 94.4 (80.0-100.0) fL MCH 32.5 (25.0-35.0) pg MCHC 34.4 (31.0-37.0) g/dL RDW 12.8 (11.5-15.5) % Plt Count 205 (150-450) k/uL MPV 7.7 Neutrophils % 71 % Lymphocytes % 17 % Monocytes % 7 % Eosinophils % 2 % Basophils % 1 % Neutrophils # 4.9 (1.3-7.7) k/uL Lymphocytes # 1.2 (1.0-4.8) k/uL Monocytes # 0.5 (0-1.0) k/uL Eosinophils # 0.1 (0-0.7) k/uL Basophils # 0.0 (0-0.2) k/uL PT 12.2 H (9.0-12.0) sec INR 1.2 H (<1.2) APTT 27.0 (22.0-30.0) sec Sodium (137-145) mmol/L Potassium (3.5-5.1) mmol/L Chloride (98-107) mmol/L Carbon Dioxide (22-30) mmol/L Anion Gap mmol/L BUN (9-20) mg/dL Creatinine (0.66-1.25) mg/dL Est GFR (CKD-EPI)AfAm (>60 ml/min/1.73 sqM) Est GFR (CKD-EPI)NonAf (>60 ml/min/1.73 sqM) Glucose (74-99) mg/dL Calcium (8.4-10.2) mg/dL Total Bilirubin (0.2-1.3) mg/dL AST (17-59) U/L ALT (4-49) U/L Alkaline Phosphatase (38-126) U/L Total Protein (6.3-8.2) g/dL Albumin (3.5-5.0) g/dL Serum Alcohol mg/dL Blood Type O Positive Blood Type Confirm Blood Type Recheck No Previous Record Bld Type Recheck Status CABO Indicated Antibody Screen NEGATIVE Spec Expiration Date 09/29/2022 - 231909/26/22 09/26/22 Range/Units 12:26 12:30 WBC (3.8-10.6) k/uL RBC (4.30-5.90) m/uL Hgb (13.0-17.5) gm/dL Hct (39.0-53.0) % MCV (80.0-100.0) fL MCH (25.0-35.0) pg MCHC (31.0-37.0) g/dL RDW (11.5-15.5) % Plt Count (150-450) k/uL MPV Neutrophils % % Lymphocytes % % Monocytes % % Eosinophils % % Basophils % % Neutrophils # (1.3-7.7) k/uL Lymphocytes # (1.0-4.8) k/uL Monocytes # (0-1.0) k/uL Eosinophils # (0-0.7) k/uL Basophils # (0-0.2) k/uL PT (9.0-12.0) sec INR (<1.2) APTT (22.0-30.0) sec Sodium 137 (137-145) mmol/L Potassium 3.9 (3.5-5.1) mmol/L Chloride 106 (98-107) mmol/L Carbon Dioxide 23 (22-30) mmol/L Anion Gap 8 mmol/L BUN 22 H (9-20) mg/dL Creatinine 1.28 H (0.66-1.25) mg/dL Est GFR (CKD-EPI)AfAm 58 (>60 ml/min/1.73 sqM) Est GFR (CKD-EPI)NonAf 50 (>60 ml/min/1.73 sqM) Glucose 123 H (74-99) mg/dL Calcium 9.6 (8.4-10.2) mg/dL Total Bilirubin 1.5 H (0.2-1.3) mg/dL AST 20 (17-59) U/L ALT 17 (4-49) U/L Alkaline Phosphatase 85 (38-126) U/L Total Protein 7.1 (6.3-8.2) g/dL Albumin 4.1 (3.5-5.0) g/dL Serum Alcohol <10 mg/dL Blood Type Blood Type Confirm O Positive Blood Type Recheck Bld Type Recheck Status Antibody Screen Spec Expiration Date - EKG Data -: EKG Interpreted by Me EKG Comments: 12-lead Electrocardiogram Interpretation Note EKG was reviewed and interpreted by myself. 12-lead ECG performed at 1247 is interpreted by me as revealing A. fib at a rate of 108 beats per minute. [place] is normal. QRS duration is 100 ms, QTc is 426 ms.. There were no ST or T wave abnormalities to suggest myocardial ischemia or injury. R wave progression across the precordium was satisfactory. By my interpretation this EKG is non- diagnostic for acute ischemia. When compared with EKG from April 2021, no significant change. Critical Care Time Critical Care Time: Yes Total Critical Care Time: 35 Critical Care Time: Upon my evaluation, this patient had a high probability of imminent or life- threatening deterioration due to fall on blood thinners, priority 2 trauma activation, right olecranon spur fracture, coccygeal contusion, scalp abrasion, which required my direct attention, intervention, and personal management. I have personally provided 35 minutes of critical care time exclusive of time spent on separately billable procedures. Time includes review of laboratory data, radiology results, discussion with consultants, and monitoring for potential decompensation. Interventions were performed as documented in my note. Disposition Clinical Impression: Fall, Fracture of right olecranon process, Coccyx contusion, Calcified cerebral meningioma, Scalp abrasion Disposition: HOME SELF-CARE Condition: Good Instructions (If sedation given, give patient instructions): Coccyx Injury (ED), Elbow Fracture (ED), Fall Prevention (ED) Is patient prescribed a controlled substance at d/c from ED?: No Referrals: Micky Alves MD [Primary Care Provider] - 1-2 days Asim Price MD [Medical Doctor] - 1-2 days Time of Disposition: 14:00
--- NOTE | 2022-09-26 12:39 | XR ---
EXAMINATION TYPE: XR pelvis AP view DATE OF EXAM: 09/26/2022 CLINICAL HISTORY: pain TECHNIQUE: Single view the pelvis is submitted. FINDINGS: No evidence for fracture, dislocation or bony lesion. Joint spaces are well-preserved. S I joints appear symmetric. IMPRESSION: 1. No acute fracture or dislocation seen. ICD 10 NO FRACTURE, INITIAL EVALUATION
--- NOTE | 2022-09-26 12:39 | XR ---
EXAMINATION TYPE: XR chest 1V portable DATE OF EXAM: 09/26/2022 HISTORY: Shortness of breath. COMPARISON: 03/11/2020 TECHNIQUE: Single view of the chest is submitted. FINDINGS: Demonstrated are scattered senescent parenchymal change. There is no evidence for focal infiltrate. The heart is stable. Chronic elevation right hemidiaphragm. Hilar and mediastinal structures are within normal limits. Degenerative changes are seen of the dorsal spine. IMPRESSION: 1. Chronic changes without evidence for acute pulmonary disease.
[2022-09-26 12:43] LABS: Basophils % (A) 1 %; Eosinophils # (A) 0.1 k/uL (0-0.7); Eosinophils % (A) 2 %; HCT 39.5 % (39.0-53.0); HGB 13.6 gm/dL (13.0-17.5); Lymphocytes # (A) 1.2 k/uL (1.0-4.8); Lymphocytes % (A) 17 %; MCH 32.5 pg (25.0-35.0); MCHC 34.4 g/dL (31.0-37.0); MCV 94.4 fL (80.0-100.0); Mean Platelet Volume 7.7; Monocytes # (A) 0.5 k/uL (0-1.0); Monocytes % (A) 7 %; Neutrophils # (A) 4.9 k/uL (1.3-7.7); Neutrophils % (A) 71 %; Platelet Count 205 k/uL (150-450); RBC 4.19 m/uL (4.30-5.90); RDW 12.8 % (11.5-15.5); WBC 6.8 k/uL (3.8-10.6)
[2022-09-26] MEDS ORDERED: LIDOCAINE 1% INJ 10MG/ML (30 ML VIAL-PF) SQ ONE (12:44)
[2022-09-26] MEDS ORDERED: MORPHINE SULFATE 4 MG/ML SYRINGE IVP STA (12:53)
--- NOTE | 2022-09-26 12:55 | CT ---
EXAMINATION TYPE: CT brain kirstin wo con DATE OF EXAM: 09/26/2022 COMPARISON: 03/11/2020 HISTORY: Fall from attic. CT DLP: 1934.[address] of the brain was performed. The ventricles, basal cisterns and sulci overlying the cerebral convexities demonstrate mild enlargem ent. There is no evidence for intracranial hemorrhage or sulcal effacement. There is decreased attenuatio n about the periventricular white matter and deep white matter of both cerebral hemispheres, compatib le with chronic small vessel ischemia. No mass effects are seen. Calcified meningioma left occipital lobe is unchanged. If symptoms persist consider MRI. Osseous calvarium is intact. IMPRESSION: 1. Age related atrophic and chronic small vessel ischemic change without acute intracranial process seen at this time. CT Cervical Spine: Unenhanced CT of the cervical spine was performed with bone and soft tissue window settings submitted . Coronal and sagittal reconstruction is obtained. There is normal alignment and prevertebral soft tissues. No evidence for acute cervical fracture . Scattered degenerative disc disease and spondylosis. Biapical scarring. IMPRESSION: 1. No evidence for acute fracture or subluxation of the cervical spine.
[2022-09-26 12:56] LABS: INR 1.2 (<1.2); Prothrombin Time 12.2 sec (9.0-12.0)
--- NOTE | 2022-09-26 12:56 | CT ---
EXAMINATION TYPE: CT facial bones wo con DATE OF EXAM: 09/26/2022 COMPARISON: None HISTORY: Fall from attic. CT DLP: 1934.[address] of the facial bones was performed in the axial and coronal planes. Bone and soft tissu e window settings are submitted. Nasal soft tissue swelling. I do not see evidence for displaced facial bone fracture or depressed facial bone fracture. The globes are intact. Paranasal sinuses are well-aerated. IMPRESSION: 1. No evidence for depressed or displaced facial bone fracture.
[2022-09-26 12:57] LABS: ALT 17 U/L (4-49); AST 20 U/L (17-59); African American GFR (CKD) 58 (>60 ml/min/1.73 sqM); Albumin 4.1 g/dL (3.5-5.0); Alcohol <10 mg/dL; Alkaline Phosphatase 85 U/L (38-126); Anion Gap 8 mmol/L; Blood Urea Nitrogen 22 mg/dL (9-20); Calcium 9.6 mg/dL (8.4-10.2); Carbon Dioxide 23 mmol/L (22-30); Chloride 106 mmol/L (98-107); Glucose 123 mg/dL (74-99); Non-African American GFR(CKD) 50 (>60 ml/min/1.73 sqM); Potassium 3.9 mmol/L (3.5-5.1); Sodium 137 mmol/L (137-145); Total Bilirubin 1.5 mg/dL (0.2-1.3); Total Protein 7.1 g/dL (6.3-8.2)
--- NOTE | 2022-09-26 13:00 | CT ---
EXAMINATION TYPE: CT ChestAbdPelvis w con DATE OF EXAM: 09/26/2022 COMPARISON: 04/14/2019 HISTORY: Fall from attic. Low back/sacrum pain. CT DLP: 1753.4 mGycm CONTRAST: Contrast enhanced Trauma CT of the Chest, Abdomen and Pelvis is performed with IV Contrast, patient i njected with 100ml mL of Isovue 300. Chest: LUNGS: There is no evidence for pneumothorax. The lungs are clear and free of focal contusion or ate lectasis. No pleural effusion MEDIASTINUM: Thoracic aorta is without CT evidence to suggest traumatic induced aortic injury. Aneur ysm ascending thoracic aorta measuring 3.6 cm AP dimension. No mediastinal fluid or blood. No perica rdial fluid or cardia abnormality. HILAR STRUCTURES: No evidence for mass. No hilar adenopathy is appreciated. OTHER: No significant abnormality. OSSEOUS: No displaced osseous fractures identified. CT ABDOMEN AND PELVIS FINDINGS: LIVER/GB: No focal laceration, contusion or subcapsular hemorrhage. Cholelithiasis. No space occupy ing hepatic lesion. Biliary tree is of normal caliber. PANCREAS: No evidence for transection. No inflammation. No distinct mass. SPLEEN: No focal laceration, contusion or subcapsular hemorrhage. ADRENALS: No hemorrhage. No nodule. No thickening. KIDNEYS/BLADDER: No focal laceration, contusion or subcapsular hemorrhage. No hydronephrosis. No n ephrolithiasis. Stable renal cystic changes. Distention of the urinary bladder. BOWEL: Bowel is intact. No evidence for pneumoperitoneum. GENITAL ORGANS: No gross abnormality. LYMPH NODES: No greater than 1cm abdominal or pelvic lymph nodes are appreciated. AORTA: No traumatic aortic injury visualized. OSSEOUS STRUCTURES: No displaced fracture seen. OTHER: No evidence for hemoperitoneum. IMPRESSION: 1. No evidence for traumatic injury to the chest. 2. No evidence for traumatic injury to the abdomen or pelvis.
--- NOTE | 2022-09-26 13:29 | XR ---
EXAMINATION TYPE: XR knee complete LT DATE OF EXAM: 09/26/2022 CLINICAL HISTORY: pain TECHNIQUE: Three views of the left knee are obtained. COMPARISON: None. FINDINGS: There is no acute fracture/dislocation. Moderate tricompartment degenerative narrowing wit h chondrocalcinosis of the menisci. Small suprapatellar joint effusion seen. The overlying soft tissu e appears unremarkable. IMPRESSION: There is no acute fracture or dislocation ICD 10 NO FRACTURE, INITIAL EVALUATION
--- NOTE | 2022-09-26 13:30 | XR ---
EXAMINATION TYPE: XR elbow complete RT DATE OF EXAM: 09/26/2022 CLINICAL HISTORY: pain TECHNIQUE: Frontal, lateral and oblique images of the right elbow are obtained. COMPARISON: None. FINDINGS: There is fracture of an olecranon spur. Associated soft tissue swelling seen. No additional fractures noted at this time. No abnormal fat pad signs are seen. The overlying soft tissue appears unremarkable. IMPRESSION: There is fracture of an olecranon spur.
--- NOTE | 2022-09-26 13:33 | CT ---
EXAMINATION TYPE: CT thor lumbar spine w con DATE OF EXAM: 09/26/2022 COMPARISON: HISTORY: Fall from attic. Low back/sacrum pain. CT DLP: 1753.4 mGycm Automated exposure control for dose reduction was used. CONTRAST: Performed with IV Contrast, patient injected with 100ml mL of Isovue 370. CT of the thoracolumbar spi ne was performed with bone and soft tissue window settings submitted. Coronal and sagittal reconstruc tion is obtained. FINDINGS: There is no evidence for thoracic or lumbar fracture. Moderate to severe multilevel degenerative disc disease throughout the thoracic and lumbar spine seen. Ventral and dorsal spondylosis. Central steno sis noted at T11-12 and L2-L3. IMPRESSION: NO FRACTURE SEEN OF THE THORACOLUMBAR SPINE.
== END 2022-09-26 19:38 | disposition home or self-care (01) ==
LOC: EC 11:58
DX: S52.021A Displaced fracture of olecranon process without intraarticular extension of right ulna, initial encounter for closed fracture (principal); S30.0XXA Contusion of lower back and pelvis, initial encounter; S00.01XA Abrasion of scalp, initial encounter; I48.91 Unspecified atrial fibrillation; G47.30 Sleep apnea, unspecified; I10 Essential (primary) hypertension; E78.5 Hyperlipidemia, unspecified; E11.36 Type 2 diabetes mellitus with diabetic cataract; E07.9 Disorder of thyroid, unspecified; Z91.013 Allergy to seafood; Z79.01 Long term (current) use of anticoagulants; Z79.84 Long term (current) use of oral hypoglycemic drugs; Z87.891 Personal history of nicotine dependence; Z79.899 Other long term (current) drug therapy; Z79.4 Long term (current) use of insulin; Z23 Encounter for immunization; W17.89XA Other fall from one level to another, initial encounter
CPT/HCPCS: 36415; 86900; 86901; 80053; 85025; 85610; 85730; 86850; 72170; 73080; 73562; 71045; 72129; 72125; 72132; 70486; 70450; 71260; 74177; 90715; 29505; 29105; 99285; 96365; 96375 ×5; 96376; 96361; 90471; G0480; J2270 ×2; J1200; J2930; J0690; J2001; Q9967; 80320; 93005

== ENCOUNTER 2023-01-27 14:40 | Emergency (ER) | payer MEDICARE ==
[2023-01-27 15:11] VITALS: RESP 20; TEMP 97.9
[2023-01-27] MEDS ORDERED: TOPICAL SKIN ADHESIVE 1 EACH AMP TOPICAL ONE (15:47)
--- NOTE | 2023-01-27 15:55 | ED ---
Fall HPI - General Chief Complaint: Fall Stated Complaint: fall - head injury Time Seen by Provider: 01/27/23 15:22 Source: patient, RN notes reviewed, old records reviewed Mode of arrival: ambulatory - History of Present Illness Initial Comments: This is a 87-year-old male to the emergency department for evaluation patient presents today for evaluation of fall fall with forehead abrasion. Patient was initially seen by EMS and told to come the ER for evaluation secondary to blood thinners and hitting his head during a fall. Patient has no complaints here in the ER no active bleeding denies any other injury from the fall MD Complaint: fall -: hour(s) Fall From: standing When Fall Occurred: 1 hour [employer] Fall Witnessed: yes, by family Place Fall Occurred: home Loss of Consciousness: none Prolonged Down Time?: no Symptoms Prior to Fall: none Location: head, face Severity: mild Severity scale (1-10): 1 Quality: burning Context: tripped/slipped Associated Symptoms: denies - Related Data Home Medications Medication Instructions Recorded Confirmed Aliskiren Hemifumarate [Aliskiren] 300 mg PO DAILY 03/29/19 01/27/23 Metoprolol Succinate (ER) [Toprol 100 mg PO DAILY 03/29/19 01/27/23 XL] Valsartan/Hydrochlorothiazide 1 tab PO DAILY 03/29/19 01/27/23 [Valsartan-Hctz 320-25 mg Tab] metFORMIN HCL [Glucophage] 1,000 mg PO DAILY 03/29/19 01/27/23 sitaGLIPtin PHOSPHATE [Januvia] 100 mg PO DAILY 03/29/19 01/27/23 Apixaban [Eliquis] 5 mg PO BID 06/07/19 01/27/23 Levothyroxine Sodium 125 mcg PO DAILY 07/02/20 01/27/23 ALPRAZolam [Xanax] 0.5 mg PO TID PRN 04/17/21 01/27/23 Cholecalciferol [Vitamin D3 (25 50 mcg PO DAILY 04/17/21 01/27/23 Mcg = 1000 Iu)] Diltiazem Cd [Cardizem Cd] 120 mg PO DAILY 01/27/23 01/27/23 Finasteride [Proscar] 5 mg PO DAILY 01/27/23 01/27/23 HYDROcodone/APAP 7.5-325MG [[place] 1 tab PO Q6H PRN 01/27/23 01/27/23 7.5-325] Mirtazapine [Remeron Soluspan] 30 mg PO HS 01/27/23 01/27/23 Tamsulosin [Flomax] 0.4 mg PO DAILY 01/27/23 01/27/23 Previous Rx's Medication Instructions Recorded Atorvastatin [Lipitor] 40 mg PO DAILY #90 tab 07/18/19 Allergies Allergy/AdvReac Type Severity Reaction Status Date / Time shellfish derived [Shellfish] Allergy Anaphylaxis Verified 01/27/23 16:52 Review of Systems ROS Statement: Those systems with pertinent positive or pertinent negative responses have been documented in the HPI. ROS Other: All systems not noted in ROS Statement are negative. Past Medical History Past Medical History: Atrial Fibrillation, Diabetes Mellitus, Hyperlipidemia, Hypertension, Sleep Apnea/CPAP/BIPAP, Thyroid Disorder Additional Past Medical History / Comment(s): OCCASIONAL VERTIGO., LOW BACK PAIN THAT RADIATES TO HIPS- STATES DIFFICULTY WALKING DISTANCE. constipation, History of Any Multi-Drug Resistant Organisms: None Reported Past Surgical History: Appendectomy, Heart Catheterization With Stent, Tonsillectomy Additional Past Surgical History / Comment(s): pain clinic procedures. one cardiac stent, rosa cataracts Past Anesthesia/Blood Transfusion Reactions: Previous Problems w/ Anesthesia Additional Past Anesthesia/Blood Transfusion Reaction / Comment(s): AFib in recovery room after pain clinic procedure Date of Last Stent Placement:: 2018 Past Psychological History: No Psychological Hx Reported Smoking Status: Former smoker Past Alcohol Use History: Occasional Past Drug Use History: None Reported - Past Family History Mother Family Medical History: No Reported History General Exam Limitations: no limitations General appearance: alert, in no apparent distress Head exam: Present: normocephalic, normal inspection. Absent: atraumatic (Abrasion to forehead) Eye exam: Present: normal appearance, PERRL, EOMI. Absent: scleral icterus, conjunctival injection, periorbital swelling ENT exam: Present: normal exam, mucous membranes moist Neck exam: Present: normal inspection. Absent: tenderness, meningismus, lymphadenopathy Respiratory exam: Present: normal lung sounds bilaterally. Absent: respiratory distress, wheezes, rales, rhonchi, stridor Cardiovascular Exam: Present: regular rate, normal rhythm, normal heart sounds. Absent: systolic murmur, diastolic murmur, rubs, gallop, clicks GI/Abdominal exam: Present: soft, normal bowel sounds. Absent: distended, tenderness, guarding, rebound, rigid Extremities exam: Present: normal inspection, full ROM, normal capillary refill. Absent: tenderness, pedal edema, joint swelling, calf tenderness Back exam: Present: normal inspection Neurological exam: Present: alert, oriented X3, CN II-XII intact Psychiatric exam: Present: normal affect, normal mood Skin exam: Present: warm, dry, intact, normal color. Absent: rash Course Vital Signs 01/27/23 01/27/23 15:05 17:25 Temperature 97.9 F 97.9 F Pulse Rate 71 74 Respiratory 20 20 Rate Blood Pressure 149/69 152/70 O2 Sat by Pulse 98 97 Oximetry - Reevaluation(s) Reevaluation #1: 01/27/23 18:00 Medical record is reviewed Reevaluation #2: 01/27/23 18:00 Patient is no change in symptoms, a symptomatically here in the ER Reevaluation #3: 01/27/23 18:00 Patient informed results and questions answered Reevaluation #4: 01/27/23 18:0 Was pt. sent in by a medical professional or institution? @ -no Did you speak to anyone other than the patient for history? @ -no Did you review nursing and triage notes? @ -agree Were old charts reviewed? @ -no Differential Diagnosis? @ -no EKG interpreted by me (3pts min.)? @ -no X-rays interpreted by me (1pt min.)? @ -no CT interpreted by me (1pt min.)? @ -no U/S interpreted by me (1pt. min.)? @ -no What testing was considered but not performed? (CT, X-rays, U/S, labs)? Why? @ -no What meds were considered but not given? Why? @ -no Did you discuss the management of the patient with other professionals? @ -no Did you reconcile home meds? @ -no Was smoking cessation discussed for >3mins.? @ -no Was critical care preformed (if so, how long)? @ -no Were there social determinants of health that impacted care today? How? (Homelessness, low income, unemployed, alcoholism, drug addiction, transportation, low edu. Level, literacy, decrease access to med. care, [facility], rehab)? @ -no Was there de-escalation of care discussed even if they declined? (Discuss DNR or withdrawal of care, Hospice)? @ -no What co-morbidities impacted this encounter? (DM, HTN, Smoking, COPD, CAD, Cancer, CVA, Hep., AIDS, mental health diagnosis, sleep apnea, morbid obesity)? @ -no Was patient admitted / discharged? @ -dc Undiagnosed new problem with uncertain prognosis? @ -no Drug Therapy requiring intensive monitoring for toxicity (Heparin, Nitro, Insulin, Cardizem)? @ -no Were any procedures done? @ -no Diagnosis/symptom? @ -no Acute, or Chronic, or Acute on Chronic? @ -no Uncomplicated (without systemic symptoms) or Complicated (systemic symptoms)? @ -no Side effects of treatment? @ -no Exacerbation, Progression, or Severe Exacerbation] @ -no Poses a threat to life or bodily function? @ -no Reevaluation #5: 01/27/23 18:00 Differential Weakness: Hypoglycemia, shock, sepsis, hyponatremia, anemia, infection, [place], ETOH, adverse medicine reaction, overdose, stroke, this is not meant to be an all-inclusive list. Medical Decision Making - Medical Decision Making 87 male to the emergency department status post fall trip and fall resulting in for an abrasion. No significant traumatic injury. Patient has no complaints and can be discharged home - Radiology Data Radiology results: report reviewed (CT brain C-spine negative for acute disease), image reviewed Disposition Clinical Impression: Fall, Forehead abrasion Disposition: HOME SELF-CARE Condition: Good Instructions (If sedation given, give patient instructions): Fall Prevention for Older Adults (ED), Abrasion (ED) Is patient prescribed a controlled substance at d/c from ED?: No Referrals: Micky Alves MD [Primary Care Provider] - 1-2 days Time of Disposition: 17:20
--- NOTE | 2023-01-27 16:41 | CT ---
EXAMINATION TYPE: CT brain kirstin wo con DATE OF EXAM: 01/27/2023 COMPARISON: 09/26/2022 HISTORY: Fall, facial trauma CT DLP: 1347.[address] of the brain was performed. The ventricles, basal cisterns and sulci overlying the cerebral convexities demonstrate mild enlargem ent. There is no evidence for intracranial hemorrhage or sulcal effacement. There is decreased attenuatio n about the periventricular white matter and deep white matter of both cerebral hemispheres, compatib le with chronic small vessel ischemia. No mass effects are seen. If symptoms persist consider MRI. Osseous calvarium is intact. Frontal scalp hematoma. IMPRESSION: 1. Age related atrophic and chronic small vessel ischemic change without acute intracranial process seen at this time. CT Cervical Spine: Unenhanced CT of the cervical spine was performed with bone and soft tissue window settings submitted . Coronal and sagittal reconstruction is obtained. There is normal alignment and prevertebral soft tissues. No evidence for acute cervical fracture . Scattered degenerative disc disease and spondylosis. Biapical scarring. IMPRESSION: 1. No evidence for acute fracture or subluxation of the cervical spine.
--- NOTE | 2023-01-27 16:43 | CT ---
EXAMINATION TYPE: CT facial bones wo con DATE OF EXAM: 01/27/2023 COMPARISON: 09/26/2022 HISTORY: Fall, facial trauma CT DLP: 1347.[address] of the facial bones was performed in the axial and coronal planes. Bone and soft tissu e window settings are submitted. No significant soft tissue swelling is appreciated. I do not see evidence for displaced facial bone fracture or depressed facial bone fracture. The globes are intact. Mucosal thickening maxillary sinuses. IMPRESSION: 1. No evidence for depressed or displaced facial bone fracture.
[2023-01-27 17:31] VITALS: BP 152/70; PULSE 74
== END 2023-01-27 17:30 | disposition home or self-care (01) ==
LOC: EC 14:40
DX: S00.81XA Abrasion of other part of head, initial encounter (principal); I48.91 Unspecified atrial fibrillation; I10 Essential (primary) hypertension; E78.5 Hyperlipidemia, unspecified; E11.9 Type 2 diabetes mellitus without complications; E07.9 Disorder of thyroid, unspecified; Z87.891 Personal history of nicotine dependence; Z91.013 Allergy to seafood; Z79.84 Long term (current) use of oral hypoglycemic drugs; Z79.01 Long term (current) use of anticoagulants; Z79.890 Hormone replacement therapy; Z79.899 Other long term (current) drug therapy; W01.198A Fall on same level from slipping, tripping and stumbling with subsequent striking against other object, initial encounter
CPT/HCPCS: 70450; 70486; 72125; 99284

== ENCOUNTER 2023-10-16 08:10 | Emergency (ER) | payer MEDICARE ==
[2023-10-16 08:25] VITALS: RESP 16; TEMP 98.1
--- NOTE | 2023-10-16 08:33 | ED ---
General Adult HPI - General Chief complaint: Extremity Injury, Lower Stated complaint: Left knee pain Time Seen by Provider: 10/16/23 08:13 Source: patient, RN notes reviewed Mode of arrival: wheelchair Limitations: no limitations - History of Present Illness Initial comments: 88-year-old male with no significant past medical history presents the emergency department with a chief complaint of acute left knee swelling. Patient reports left knee swelling that began on 10/13/2023. He denies any known trauma or injury. Denies any redness or warmth to the area. He reports that he uses his left leg to get out of bed this morning but he was unable to put pressure on the left knee. He does report being on Eliquis for atrial fibrillation. Denies numbness, tingling or weakness in the extremity. - Related Data Home Medications Medication Instructions Recorded Confirmed Aliskiren Hemifumarate [Aliskiren] 300 mg PO DAILY 03/29/19 01/27/23 Metoprolol Succinate (ER) [Toprol 100 mg PO DAILY 03/29/19 01/27/23 XL] Valsartan/Hydrochlorothiazide 1 tab PO DAILY 03/29/19 01/27/23 [Valsartan-Hctz 320-25 mg Tab] metFORMIN HCL [Glucophage] 1,000 mg PO DAILY 03/29/19 01/27/23 sitaGLIPtin PHOSPHATE [Januvia] 100 mg PO DAILY 03/29/19 01/27/23 Apixaban [Eliquis] 5 mg PO BID 06/07/19 01/27/23 Levothyroxine Sodium 125 mcg PO DAILY 07/02/20 01/27/23 ALPRAZolam [Xanax] 0.5 mg PO TID PRN 04/17/21 01/27/23 Cholecalciferol [Vitamin D3 (25 50 mcg PO DAILY 04/17/21 01/27/23 Mcg = 1000 Iu)] Diltiazem Cd [Cardizem Cd] 120 mg PO DAILY 01/27/23 01/27/23 Finasteride [Proscar] 5 mg PO DAILY 01/27/23 01/27/23 HYDROcodone/APAP 7.5-325MG [[place] 1 tab PO Q6H PRN 01/27/23 01/27/23 7.5-325] Mirtazapine [Remeron Soluspan] 30 mg PO HS 01/27/23 01/27/23 Tamsulosin [Flomax] 0.4 mg PO DAILY 01/27/23 01/27/23 Previous Rx's Medication Instructions Recorded Atorvastatin [Lipitor] 40 mg PO DAILY #90 tab 07/18/19 Allergies Allergy/AdvReac Type Severity Reaction Status Date / Time shellfish derived [Shellfish] Allergy Anaphylaxis Verified 10/16/23 08:13 Review of Systems ROS Statement: Those systems with pertinent positive or pertinent negative responses have been documented in the HPI. ROS Other: All systems not noted in ROS Statement are negative. Past Medical History Past Medical History: Atrial Fibrillation, Diabetes Mellitus, Hyperlipidemia, Hypertension, Sleep Apnea/CPAP/BIPAP, Thyroid Disorder Additional Past Medical History / Comment(s): OCCASIONAL VERTIGO., LOW BACK PAIN THAT RADIATES TO HIPS- STATES DIFFICULTY WALKING DISTANCE. constipation, History of Any Multi-Drug Resistant Organisms: None Reported Past Surgical History: Appendectomy, Heart Catheterization With Stent, Tonsillectomy Additional Past Surgical History / Comment(s): pain clinic procedures. one cardiac stent, rosa cataracts Past Anesthesia/Blood Transfusion Reactions: Previous Problems w/ Anesthesia Additional Past Anesthesia/Blood Transfusion Reaction / Comment(s): AFib in recovery room after pain clinic procedure Date of Last Stent Placement:: 2018 Past Psychological History: No Psychological Hx Reported Smoking Status: Former smoker Past Alcohol Use History: Occasional Past Drug Use History: None Reported - Past Family History Mother Family Medical History: No Reported History General Exam - General Exam Comments Initial Comments: General: Alert, in no acute distress Head: atraumatic normocephalic. Eyes PERRL, EOMI intact, mucous membranes moist Respiratory: Lungs clear to auscultation bilaterally Cardiovascular: Heart rate regular rate and rhythm Abdominal: Soft without guarding or rebound Extremities: Normal inspection with full range of motion and normal capillary refill, left knee with generalized swelling and without tenderness. Limited range of motion secondary to swelling. Homans sign negative. Distal Neurovascularly intact Neuroogic: alert and oriented 3, CN II-XII intact, able to ambulate with steady gait Skin: warm dry and intact with normal color Limitations: no limitations Course Vital Signs 10/16/23 10/16/23 10/16/23 08:11 08:13 09:58 Temperature 98.1 F Pulse Rate 59 L 60 68 Respiratory 18 16 16 Rate Blood Pressure 126/80 130/68 145/86 O2 Sat by Pulse 98 98 98 Oximetry Medical Decision Making - Medical Decision Making Was pt. sent in by a medical professional or institution ([facility], [employer]TER, urgent care, hospital, or [facility]...) When possible be specific @ -[No] Did you speak to anyone other than the patient for history (EMS, parent, family, police, friend...)? What history was obtained from this source @ -[No] Did you review nursing and triage notes (agree or disagree)? Why? @ -[I reviewed and agree with nursing and triage notes] Were old charts reviewed (outside hosp., previous admission, EMS record, old EKG, old radiological studies, urgent care reports/EKG's, [facility] records)? Report findings @ -[No old charts were reviewed] Differential Diagnosis (chest pain, altered mental status, abdominal pain women, abdominal pain men, vaginal bleeding, weakness, fever, dyspnea, syncope, headache, dizziness, GI bleed, back pain, seizure, CVA, palpatations, mental health, musculoskeletal)? @ -[not applicable] EKG interpreted by me (3pts min.). @ -[As above] X-rays interpreted by me (1pt min.). @ -Left knee x-ray does not reveal any dislocation or fracture. There is moderate joint effusion CT interpreted by me (1pt min.). @ -[None done] U/S interpreted by me (1pt. min.). @ -[None done] What testing was considered but not performed or refused? (CT, X-rays, U/S, labs)? Why? @ -[None] What meds were considered but not given or refused? Why? @ -[None] Did you discuss the management of the patient with other professionals (professionals i.e. [facility], H[employer] W[employer] CUTTER, lab, RT, psych nurse, psych social worker, gold miner blasting, teacher, space operations officer, director of casework department)? Give summary @ -[No] Was smoking cessation discussed for >3mins.? @ -[No] Was critical care preformed (if so, how long)? @ -[No] Were there social determinants of health that impacted care today? How? (Homeles sness, low income, unemployed, alcoholism, drug addiction, transportation, low edu. Level, literacy, decrease access to med. care, long term, rehab)? @ -[No] Was there de-escalation of care discussed even if they declined (Discuss DNR or withdrawal of care, Hospice)? DNR status @ -[No] What co-morbidities impacted this encounter? (DM, HTN, Smoking, COPD, CAD, Cancer, CVA, ARF, Chemo, Hep., AIDS, mental health diagnosis, sleep apnea, morbid obesity)? @ -[None] Was patient admitted / discharged? Hospital course, mention meds given and route, prescriptions, significant lab abnormalities, going to OR and other pertinent info. @ -Charge. This is an 88-year-old male who presents the emergency department with a chief complaint of left knee swelling. Patient had a thorough history and physical exam performed. Left knee with generalized edema. non-tender. Chest x-ray revealed moderate joint effusion. I discussed the results in detail with the patient verbalized understanding all questions addressed. He is agreeable with the plan for discharge home. Return precautions discussed. Discharge. Case is discussed with Dr. Bear , ED attending who agrees with plan of care Undiagnosed new problem with uncertain prognosis? @ -[No] Drug Therapy requiring intensive monitoring for toxicity (Heparin, Nitro, Insulin, Cardizem)? @ -[No] Were any procedures done? @ -[No] Diagnosis/symptom? @ -Left Knee Hemarthrosis Acute, or Chronic, or Acute on Chronic? @ -Acute Uncomplicated (without systemic symptoms) or Complicated (systemic symptoms)? @ -Uncomplicated Side effects of treatment? @ -[No] Exacerbation, Progression, or Severe Exacerbation? @ -[No] Poses a threat to life or bodily function? How? (Chest pain, [place], [place], pneumonia, PE, COPD, DKA, ARF, appy, cholecystitis, CVA, Diverticulitis, Homicidal, Suicidal, threat to staff... and all critical care pts) @ -Low likeihood Disposition Clinical Impression: Hemarthrosis Disposition: HOME SELF-CARE Condition: Stable Instructions (If sedation given, give patient instructions): Knee Sprain (ED), Hemarthrosis (ED) Is patient prescribed a controlled substance at d/c from ED?: No Referrals: Micky Alves MD [Primary Care Provider] - 1-2 days Justice Spencer DO [Doctor of Osteopathic Medicine] - 1-2 days Time of Disposition: 09:47
--- NOTE | 2023-10-16 09:29 | XR ---
EXAMINATION TYPE: XR knee complete LT DATE OF EXAM: 10/16/2023 8:39 AM CLINICAL INDICATION:Male, 88 years old with history of Left knee swelling; [facility] COMPARISON: None. TECHNIQUE: XR knee complete LT; examined in Frontal, lateral and oblique projections. FINDINGS: Osseous mineralization appears appropriate. There is mild tricompartmental osteoarthropathy with join t space narrowing and small marginal osteophytes. Chondrocalcinosis in the medial and lateral compart ments. No acute fracture or dislocation. Large suprapatellar knee joint effusion. Scattered vascular calcifications. IMPRESSION: No acute fracture or dislocation. Large suprapatellar effusion. Mild tricompartmental osteoarthropathy. Chondrocalcinosis can be seen with CPPD.
[2023-10-16 10:24] VITALS: BP 145/86; PULSE 68
== END 2023-10-16 10:08 | disposition home or self-care (01) ==
LOC: EC 08:10
DX: M25.062 Hemarthrosis, left knee (principal); I48.91 Unspecified atrial fibrillation; E11.9 Type 2 diabetes mellitus without complications; I10 Essential (primary) hypertension; G47.30 Sleep apnea, unspecified; E07.9 Disorder of thyroid, unspecified; Z79.890 Hormone replacement therapy; Z79.899 Other long term (current) drug therapy; Z79.84 Long term (current) use of oral hypoglycemic drugs; Z87.891 Personal history of nicotine dependence; Z91.013 Allergy to seafood
CPT/HCPCS: 99283

== ENCOUNTER → 2024-07-07 | Outpatient (CLI) | payer MEDICARE ==
[2024-07-07 15:09] LABS: ALT 11 U/L (10-49); AST 15 U/L (14-35); Albumin 4.1 g/dL (3.8-4.9); Albumin/Globulin Ratio 1.58 Ratio (1.60-3.17); Alkaline Phosphatase 88 U/L (41-126); Blood Urea Nitrogen 20.8 mg/dL (9.0-27.0); Calcium 9.6 mg/dL (8.7-10.3); Carbon Dioxide 25.7 mmol/L (21.6-31.8); Chloride 102 mmol/L (96-109); Chol/HDL Ratio 2.67 Ratio; Globulin 2.6 g/dL (1.6-3.3); Glucose 120 mg/dL (70-110); LDL Cholesterol,Calculated 59.6 mg/dL (0.0-131.0); Potassium 4.2 mmol/L (3.5-5.5); Sodium 139 mmol/L (135-145); Total Bilirubin 0.8 mg/dL (0.3-1.2); Total Protein 6.7 g/dL (6.2-8.2); VLDL Calculation 12.38 mg/dL (5.00-40.00)
== END | disposition home or self-care (01) ==
LOC: LABWHC1 08:03
PROVIDERS: ATTEND Internal Medicine Interventional Cardiology
DX: E78.2 Mixed hyperlipidemia (principal)
CPT/HCPCS: 36415; 80053; 80061

== ENCOUNTER 2024-09-06 19:03 | Emergency (ER) | payer MEDICARE ==
[2024-09-06 19:23] VITALS: RESP 18
--- NOTE | 2024-09-06 19:48 | XR ---
EXAMINATION TYPE: XR wrist complete RT DATE OF EXAM: 09/06/2024 7:35 PM COMPARISON: None available. CLINICAL INDICATION: Male, 89 years old with history of pain; [facility] TECHNIQUE: XR wrist complete RT; examined in the Frontal, navicular, lateral, and oblique. FINDINGS: No definite acute fracture or dislocation. Osseous structures multilevel demineralized. Deg enerative changes at the first carpal metacarpal joint and throughout the metacarpal bones. There is radiocarpal degenerative osteoarthritis and possible chondrocalcinosis. No unexpected radiopaque fore ign body. IMPRESSION: No acute osseous pathology. [facility], , 09/06/2024 7:46 PM
--- NOTE | 2024-09-06 20:25 | ED ---
Upper Extremity HPI - General Chief Complaint: Extremity Injury, Upper Stated Complaint: Fall/R wrist/hand injury Time Seen by Provider: 09/06/24 19:19 Source: patient, RN notes reviewed Mode of arrival: ambulatory Limitations: no limitations - History of Present Illness Initial Comments: This is an 89-year-old male presenting with right wrist following a fall at 1300 today. Patient states he was outside when he tripped on a curb causing him to fall onto his right side as he attempted to catch himself with his right hand. Patient states he was helped to his feet without injury to his head/neck or loss of consciousness. Patient endorses use of blood thinners. Patient states pain was minimal at first but has since progressed to a 9 out of 10. Denies [id number] medication use. Denies any other significant injury. Patient states he is right-handed. Complaint: Injury to:: right, hand Onset/Timin -: hour(s) Time: 13:00 Other Extremity Injury: Hand: Right Other Injuries: none Handedness: right Place: outdoors Severity scale (1-10): 9 Improves With: immobilization Worsens With: movement of extremity Context: fall Associated Symptoms: denies other symptoms Treatments Prior to Arrival: cold therapy - Related Data Home Medications Medication Instructions Recorded Confirmed Aliskiren Hemifumarate [Aliskiren] 300 mg PO DAILY 03/29/19 01/27/23 Metoprolol Succinate (ER) [Toprol 100 mg PO DAILY 03/29/19 01/27/23 XL] Valsartan/Hydrochlorothiazide 1 tab PO DAILY 03/29/19 01/27/23 [Valsartan-Hctz 320-25 mg Tab] metFORMIN HCL [Glucophage] 1,000 mg PO DAILY 03/29/19 01/27/23 sitaGLIPtin PHOSPHATE [Januvia] 100 mg PO DAILY 03/29/19 01/27/23 Apixaban [Eliquis] 5 mg PO BID 06/07/19 01/27/23 Levothyroxine Sodium 125 mcg PO DAILY 07/02/20 01/27/23 ALPRAZolam [Xanax] 0.5 mg PO TID PRN 04/17/21 01/27/23 Cholecalciferol [Vitamin D3 (25 50 mcg PO DAILY 04/17/21 01/27/23 Mcg = 1000 Iu)] Diltiazem Cd [Cardizem Cd] 120 mg PO DAILY 01/27/23 01/27/23 Finasteride [Proscar] 5 mg PO DAILY 01/27/23 01/27/23 HYDROcodone/APAP 7.5-325MG [Falls 1 tab PO Q6H PRN 01/27/23 01/27/23 7.5-325] Mirtazapine [Remeron Soluspan] 30 mg PO HS 01/27/23 01/27/23 Tamsulosin [Flomax] 0.4 mg PO DAILY 01/27/23 01/27/23 Previous Rx's Medication Instructions Recorded Atorvastatin [Lipitor] 40 mg PO DAILY #90 tab 07/18/19 Allergies Allergy/AdvReac Type Severity Reaction Status Date / Time shellfish derived [Shellfish] Allergy Anaphylaxis Verified 09/06/24 19:23 Review of Systems ROS Statement: Those systems with pertinent positive or pertinent negative responses have been documented in the HPI. ROS Other: All systems not noted in ROS Statement are negative. Past Medical History Past Medical History: Atrial Fibrillation, Diabetes Mellitus, Hyperlipidemia, Hypertension, Sleep Apnea/CPAP/BIPAP, Thyroid Disorder Additional Past Medical History / Comment(s): OCCASIONAL VERTIGO., LOW BACK PAIN THAT RADIATES TO HIPS- STATES DIFFICULTY WALKING DISTANCE. constipation, History of Any Multi-Drug Resistant Organisms: None Reported Past Surgical History: Appendectomy, Heart Catheterization With Stent, Tonsillectomy Additional Past Surgical History / Comment(s): pain clinic procedures. one cardiac stent, rosa cataracts Past Anesthesia/Blood Transfusion Reactions: Previous Problems w/ Anesthesia Additional Past Anesthesia/Blood Transfusion Reaction / Comment(s): AFib in recovery room after pain clinic procedure Date of Last Stent Placement:: 2018 Past Psychological History: No Psychological Hx Reported Smoking Status: Former smoker Past Alcohol Use History: Occasional Past Drug Use History: None Reported - Past Family History Mother Family Medical History: No Reported History General Exam Limitations: no limitations General appearance: alert, in no apparent distress Head exam: Present: atraumatic, normocephalic, normal inspection Eye exam: Present: normal appearance, PERRL, EOMI. Absent: scleral icterus, conjunctival injection, periorbital swelling ENT exam: Present: normal exam, mucous membranes moist Neck exam: Present: normal inspection. Absent: tenderness, meningismus, lymphadenopathy Respiratory exam: Present: normal lung sounds bilaterally. Absent: respiratory distress, wheezes, rales, rhonchi, stridor Cardiovascular Exam: Present: regular rate, normal rhythm, normal heart sounds. Absent: systolic murmur, diastolic murmur, rubs, gallop, clicks GI/Abdominal exam: Present: soft, normal bowel sounds. Absent: distended, tenderness, guarding, rebound, rigid Extremities exam: Present: tenderness (Positive tenderness over medial carpal bones. Negative obvious crepitus or deformity. Negative edema or abnormal ecchymosis. Negative distal radial ulnar tenderness/deformity. Negative metacarpal or phalanges crepitus, deformity. ), normal capillary refill, other (Neurovascular intact, capillary refill less than 2 seconds. Patient able to form fist with assistance, able to demonstrate full range of motion without assistance afterwards). Absent: pedal edema, joint swelling, calf tenderness Back exam: Present: normal inspection Neurological exam: Present: alert, oriented X3, CN II-XII intact Psychiatric exam: Present: normal affect, normal mood Skin exam: Present: warm, dry, intact, normal color. Absent: rash Course Vital Signs 09/06/24 19:21 Temperature 97.7 F Pulse Rate 89 Respiratory 18 Rate Blood Pressure 148/80 O2 Sat by Pulse 100 Oximetry Medical Decision Making - Medical Decision Making Was pt. sent in by a medical professional or institution (Dr. PA, INSULATION WORKER, urgent care, hospital, or [facility]...) When possible be specific @ -No Did you speak to anyone other than the patient for history (EMS, parent, family, police, friend...)? What history was obtained from this source @ -No Did you review nursing and triage notes (agree or disagree)? Why? @ -I reviewed and agree with nursing and triage notes Were old charts reviewed (outside hosp., previous admission, EMS record, old EKG, old radiological studies, urgent care reports/EKG's, [facility] records)? Report findings @ -No old charts were reviewed Differential Diagnosis (chest pain, altered mental status, abdominal pain women, abdominal pain men, vaginal bleeding, weakness, fever, dyspnea, syncope, headache, dizziness, GI bleed, back pain, seizure, CVA, palpatations, mental health, musculoskeletal)? @ -Colles fracture, radius fracture, ulnar fracture, metacarpal fracture, phalangeal fracture/dislocation, this is not an exhaustive list. EKG interpreted by me (3pts min.). @ -Not done X-rays interpreted by me (1pt min.). @ -Right wrist x-ray reveals no obvious fracture or dislocation CT interpreted by me (1pt min.). @ -None done U/S interpreted by me (1pt. min.). @ -None done What testing was considered but not performed or refused? (CT, X-rays, U/S, labs)? Why? @ -None What meds were considered but not given or refused? Why? @ -None Did you discuss the management of the patient with other professionals (professionals i.e. , PA, INSULATION WORKER, lab, RT, psych nurse, group social worker, group captain, teacher, commissioned defence force officer, case specialist)? Give summary @ -No Was smoking cessation discussed for >3mins.? @ -No Was critical care preformed (if so, how long)? @ -No Were there social determinants of health that impacted care today? How? (Homelessness, low income, unemployed, alcoholism, drug addiction, tr ansportation, low edu. Level, literacy, decrease access to med. care, longterm, rehab)? @ -No Was there de-escalation of care discussed even if they declined (Discuss DNR or withdrawal of care, Hospice)? DNR status @ -No What co-morbidities impacted this encounter? (DM, HTN, Smoking, COPD, CAD, Cancer, CVA, ARF, Chemo, Hep., AIDS, mental health diagnosis, sleep apnea, morbid obesity)? @ -Fall risk Was patient admitted / discharged? Hospital course, mention meds given and route, prescriptions, significant lab abnormalities, going to OR and other pertinent info. @ -Discharge. Right hand/wrist x-ray reveals no fracture or dislocation. Patient provided IM Toradol for pain and provided Shawn wrap. Advised to continue Tylenol every 4-6 hours for pain and cold compress for 10 minutes up to 4 times daily. Undiagnosed new problem with uncertain prognosis? @ -No Drug Therapy requiring intensive monitoring for toxicity (Heparin, Nitro, Insulin, Cardizem)? @ -No Were any procedures done? @ -No Diagnosis/symptom? @ -Right wrist contusion/sprain Acute, or Chronic, or Acute on Chronic? @ -Acute Uncomplicated (without systemic symptoms) or Complicated (systemic symptoms)? @ -Uncomplicated Side effects of treatment? @ -No Exacerbation, Progression, or Severe Exacerbation? @ -No Poses a threat to life or bodily function? How? (Chest pain, [place], [place], pneumonia, PE, COPD, DKA, ARF, appy, cholecystitis, CVA, Diverticulitis, Homicidal, Suicidal, threat to staff... and all critical care pts) @ -No Disposition Clinical Impression: Sprain and strain of wrist Disposition: HOME SELF-CARE Condition: Good Instructions (If sedation given, give patient instructions): Hand Sprain (ED) Is patient prescribed a controlled substance at d/c from ED?: No Referrals: Micky Alves MD [Primary Care Provider] - 1-2 days Time of Disposition: 20:23
[2024-09-06] MEDS: KETOROLAC 15 MG/ML 1 ML VIAL IM STA (20:52)
[2024-09-06 20:59] VITALS: BP 152/93; PULSE 67; TEMP 97.8
== END 2024-09-06 21:14 | disposition home or self-care (01) ==
LOC: EC 19:03
DX: S63.501A Unspecified sprain of right wrist, initial encounter (principal); Z87.891 Personal history of nicotine dependence; Z91.013 Allergy to seafood; Z95.5 Presence of coronary angioplasty implant and graft; W01.0XXA Fall on same level from slipping, tripping and stumbling without subsequent striking against object, initial encounter
CPT/HCPCS: 73110; 99283; 96372; J1885